=== PATIENT | male | born 1950 | race Caucasian/White ===

== ENCOUNTER → 2018-09-21 | Outpatient (CLI) | payer MEDICARE, BC ==
[2018-09-21 10:23] LABS: HCT 48.5 % (39.0-53.0); HGB 16.1 gm/dL (13.0-17.5); MCHC 33.3 g/dL (31.0-37.0); MCV 96.2 fL (80.0-100.0); Mean Platelet Volume 7.4; Platelet Count 151 k/uL (150-450); RBC 5.04 m/uL (4.30-5.90); RDW 13.5 % (11.5-15.5)
[2018-09-21 10:31] LABS: INR 1.9 (<1.2)
[2018-09-21 11:10] LABS: Appearance,Urine Clear (Clear); Bilirubin,Urine Negative (Negative); Blood,Urine Negative (Negative); Color,Urine Yellow; Glucose,Urine (UA) Negative (Negative); Ketones,Urine Negative (Negative); Leukocyte Esterase,Urine Negative (Negative); Mucus,Urine Few /hpf; Nitrite,Urine Negative (Negative); PH, Urine 5.5 (5.0-8.0); Protein,Urine 1+ (Negative); RBC,Urine 16 /hpf (0-5); Specific Gravity,Urine 1.028 (1.001-1.035); Sperm,Urine Many /hpf; Urobilinogen,Urine <2.0 mg/dL (<2.0); WBC,Urine 8 /hpf (0-5)
[2018-09-21 17:04] LABS: Insulin Level 15.6 mIU/mL (3.0-25.0); Vitamin D 25 Hydroxy 78.5 ng/mL (30.0-100.0)
[2018-09-21 17:05] LABS: Progesterone <0.2 ng/mL
[2018-09-21 17:22] LABS: Albumin 4.3 g/dL (3.80-4.90); Albumin/Globulin Ratio 2.39 (1.20-2.10); Anion Gap 8.9 mmol/L (4.00-12.00); C Reactive Protein 0.6 mg/dL (0.0-0.8); Calcium 9.5 mg/dL (8.7-10.3); Carbon Dioxide 29.1 mmol/L (21.6-31.8); Globulin 1.8 g/dL (2.1-3.7); Potassium 4.2 mmol/L (3.5-5.5); Total Bilirubin 0.9 mg/dL (0.3-1.2); Total Protein 6.1 g/dL (6.2-8.2)
[2018-09-21 17:30] LABS: T4, Free (Free Thyroxine) 1.2 ng/dL (0.80-1.80)
[2018-09-21 20:13] LABS: Hemoglobin A1C 5.5 % (4.0-6.0)
[2018-09-24 22:42] LABS: Testosterone, Free, LC/MS/MS 41.6 pg/mL (46.0-224.0)
== END | disposition home or self-care (01) ==
LOC: LABWHC1 09:18
PROVIDERS: ATTEND Family Medicine
DX: D68.59 Other primary thrombophilia (principal); E03.9 Hypothyroidism, unspecified; E78.5 Hyperlipidemia, unspecified; E55.9 Vitamin D deficiency, unspecified; E34.9 Endocrine disorder, unspecified
CPT/HCPCS: 36415; 80053; 81001; 82040; 82306; 82533; 82626; 82670; 83036; 83525; 83704; 84144; 84270; 84403; 84439; 84443; 84481; 85027; 85610; 86140

== ENCOUNTER 2018-10-08 15:11 | Emergency (ER) | payer MEDICARE, BC ==
[2018-10-08 15:27] VITALS: BP 141/72; PULSE 56; RESP 20; TEMP 97.8
--- NOTE | 2018-10-08 16:07 | XR ---
EXAMINATION TYPE: XR knee complete RT DATE OF EXAM: 10/08/2018 COMPARISON: NONE HISTORY: 68-year-old male pain after twisting injury today TECHNIQUE: 3 views FINDINGS: Bone fragments above the patella located anteriorly measuring 1.2 and 1.4 cm. Additional corrie ne fragment along the medial aspect of the joint line measures 1.3 cm. Suspect underlying small effus ion. Otherwise, no significant loosening or jatin periprosthetic fracture is identified. IMPRESSION: 1. Recommend comparison to patient's outside priors to ensure stability. There are 2 bone fragments a bria the patella measuring up to 1.4 cm and one fragment along the medial joint line measuring 1.3 cm . Chronic bone fragments are suspected. Confirmation is needed. 2. Suspect underlying small knee joint effusion.
--- NOTE | 2018-10-08 16:28 | ED ---
Lower Extremity Injury HPI - General Chief Complaint: Extremity Injury, Lower Stated Complaint: knee pain Time Seen by Provider: 10/08/18 15:42 Source: patient, RN notes reviewed Mode of arrival: wheelchair Limitations: no limitations - History of Present Illness Initial Comments: 68-year-old male presents emergency Department chief complaint right knee pain. Patient states that he twisted his knee and felt a pop on the lateral posterior aspect. Patient has had a prior knee replacement 10 years ago. Patient had no complications with this. Patient states that it hurts when he bends his knee. Patient denies any noted swelling or ecchymosis. Denies any other complaints. - Related Data Home Medications Medication Instructions Recorded Confirmed Furosemide [Lasix] 1 tab PO DAILY 10/01/14 10/02/14 Levothyroxine Sodium [Synthroid] 1 tab PO DAILY 10/01/14 10/02/14 Losartan Potassium [Cozaar] 1 tab PO DAILY 10/01/14 10/02/14 Metaxalone [Skelaxin] 1 tab PO TID PRN 10/01/14 10/01/14 Metoprolol Succinate [Toprol XL] 1 tab PO DAILY 10/01/14 10/02/14 Potassium Chloride ER [K-Dur 10] 20 meq PO DAILY 10/01/14 10/02/14 Warfarin [Coumadin] 1 tab PO HS 10/01/14 10/02/14 Warfarin [Coumadin] 1 tab PO DIRECTED 10/02/14 10/02/14 Allergies Allergy/AdvReac Type Severity Reaction Status Date / Time No Known Allergies Allergy Verified 10/08/18 15:27 Review of Systems ROS Statement: Those systems with pertinent positive or pertinent negative responses have been documented in the HPI. ROS Other: All systems not noted in ROS Statement are negative. Past Medical History Past Medical History: Coronary Artery Disease (CAD), Hypertension History of Any Multi-Drug Resistant Organisms: None Reported Past Surgical History: Back Surgery, Hernia Repair, Joint Replacement, Orthopedic Surgery Additional Past Surgical History / Comment(s): aortic valve replacement, nurys knee ,rt shoulder Smoking Status: Never smoker Past Alcohol Use History: None Reported Past Drug Use History: None Reported General Exam Limitations: no limitations General appearance: alert, in no apparent distress Neck exam: Present: normal inspection. Absent: tenderness, meningismus, lymphadenopathy Respiratory exam: Present: normal lung sounds bilaterally. Absent: respiratory distress, wheezes, rales, rhonchi, stridor Cardiovascular Exam: Present: regular rate, normal rhythm, normal heart sounds. Absent: systolic murmur, diastolic murmur, rubs, gallop, clicks Extremities exam: Present: other (Right knee pain with flexion of the knee no palpable tenderness patient reports pain in posterior lateral portion pain with varus, no pain with valgus negative anterior posterior drawer neurovascular intact joint above and below within normal limits.) Neurological exam: Present: alert, reflexes normal. Absent: motor sensory deficit Course Vital Signs 10/08/18 15:23 Temperature 97.8 F Pulse Rate 56 L Respiratory 20 Rate Blood Pressure 141/72 O2 Sat by Pulse 97 Oximetry Medical Decision Making - Medical Decision Making 68-year-old male presented for right knee pain. Patient is right knee sprain. X-rays were obtained showed possibility of bony fragment though this is felt to be chronic. Patient has no medial tenderness and mechanism is not consistent with fracture. Patient will follow-up with his orthopedic physician or local orthopedic doctor. Patient will be place in knee immbolizer. We discussed return parameters. Disposition Clinical Impression: Right knee sprain Disposition: HOME SELF-CARE Condition: Stable Instructions: Knee Sprain (ED) Additional Instructions: Please return to the Emergency Department if symptoms worsen or any other concerns. Is patient prescribed a controlled substance at d/c from ED?: No Referrals: Coni De La Garza MD [Primary Care Provider] - 1-2 days Fouzia Cast DO [Doctor of Osteopathic Medicine] - 1-2 days Time of Disposition: 16:28
== END 2018-10-08 16:44 | disposition home or self-care (01) ==
LOC: EC 15:11
DX: S83.91XA Sprain of unspecified site of right knee, initial encounter (principal); I25.10 Atherosclerotic heart disease of native coronary artery without angina pectoris; I10 Essential (primary) hypertension; Z95.2 Presence of prosthetic heart valve; Z96.653 Presence of artificial knee joint, bilateral; Z96.611 Presence of right artificial shoulder joint; Z79.01 Long term (current) use of anticoagulants; Z79.899 Other long term (current) drug therapy; X50.1XXA Overexertion from prolonged static or awkward postures, initial encounter; Y92.009 Unspecified place in unspecified non-institutional (private) residence as the place of occurrence of the external cause
CPT/HCPCS: 73562; 99283; L1830

== ENCOUNTER → 2019-04-22 | Day surgery (SDC) | payer MEDICARE, OTHER ==
[2019-04-12 14:44] VITALS: BMI 40.5
[~2019-04-22] MED LIST: BENZOCAINE SPRAY 1 CAN MUCOUS MEM ONE; MIDAZOLAM (PF) 2 MG/2 ML VIAL IV ONE; SODIUM CHLORIDE 0.9% 1,000 ML IV SCH; SODIUM CHLORIDE 0.9% 500 ML 500 ML IV ONE; fentaNYL (PF) 50 MCG/ML 2 ML AMP IV ONE; fentaNYL (PF) 50 MCG/ML 2 ML AMP ONE
[2019-04-22 08:51] VITALS: TEMP 98.2
[2019-04-22 09:05] LABS: INR 2.9 (<1.2); Prothrombin Time 27.6 sec (9.0-12.0)
--- NOTE | 2019-04-22 09:44 | ECHOT ---
TRANSESOPHAGEAL ECHOCARDIOGRAM INDICATION: To evaluate the aortic prosthetic valve for aortic regurgitation. PROCEDURE NOTE: After obtaining informed consent, transesophageal echocardiogram was performed in left lateral position using an Omni plane probe. Local and IV sedation were obtained using Xylocaine spray, 3 mg of intravenous Versed and fentanyl. The patient tolerated the procedure well without any obvious immediate complications. Patient received moderate conscious sedation and total sedation time was 10 minutes. FINDINGS: 1. Aortic valve: There is a prosthetic valve in aortic position with mildly dilated ascending aorta. Ascending aorta measures about 3.6 cm. The prosthetic valve seems to be moving normally. There is no restriction in leaflet mobility and there is no regurgitation inside the valve. However, there is a moderate amount of paravalvular regurgitation noted. 2. Mitral valve appears anatomically normal. There is moderate mitral regurgitation noted. There is mild tricuspid regurgitation noted. 3. Interatrial septum: There is no evidence of [id number]-rs-[id number] shunt by color-flow Doppler or [id number]-[id number] shunt by agitated saline contrast study. 4. Aorta: The visualized portion of the aorta including the ascending aorta and part of the arch are free of significant aneurysmal dilatation. There is mild atherosclerotic changes noted throughout. 5. Left ventricle has normal size and systolic function. CONCLUSION: 1. There is a bioprosthetic valve in aortic position that shows moderate perivalvular regurgitation. 2. There is moderate mitral regurgitation. 3. Normal left ventricular systolic function. 4. No significant aneurysm is noted within the ascending aorta. It appears mildly dilated. There are mild atherosclerotic changes noted throughout the aorta. MMODL / IJN: [id number] /
[2019-04-22 10:25] VITALS: RESP 16
[2019-04-22 11:55] VITALS: BP 152/80; PULSE 71
[2019-04-22 12:02] LABS: African American GFR (CKD) >90 (>60 ml/min/1.73 sqM); Anion Gap 5 mmol/L; Blood Urea Nitrogen 18 mg/dL (9-20); Calcium 9.5 mg/dL (8.4-10.2); Carbon Dioxide 34 mmol/L (22-30); Chloride 102 mmol/L (98-107); Glucose 153 mg/dL (74-99); Potassium 4.6 mmol/L (3.5-5.1); Sodium 141 mmol/L (137-145)
--- NOTE | 2019-04-22 13:00 | CT ---
CT CHEST FOR PULMONARY EMBOLISM. EXAMINATION TYPE: CT angio chest DATE OF EXAM: 04/22/2019 INDICATION: Follow up from [facility]. Valve abnormality. CT DLP: 1657.1 mGycm, Automated exposure control for dose reduction was used. CONTRAST: Patient injected with 100 mL of Isovue 370. COMPARISON: 04/09/2012 TECHNIQUE: CT of the chest is performed on a spiral scan at 2 mm thick sections. Study is performed with intravenous contrast timed for evaluation for pulmonary embolism. This will limit additional po rtions of the evaluation. 3-D MIP images reconstructed by the technologist are reviewed on the compu ter in the coronal and sagittal planes. FINDINGS: No persistent filling defects are evident to suggest an acute pulmonary embolism. No mediastinal or hilar adenopathy enlarged by CT criteria is evident. The ascending aorta diameter at the level of the main pulmonary artery is 2.8 cm. The main pulmonary artery diameter at the bifur cation is 2.1 cm. Some mild stranding may be in the posterior right lung base. This is most likely on the basis of atel ectasis. Limited CT section through the upper abdomen are unremarkable. IMPRESSIONS: 1. No acute pulmonary embolism
== END | disposition home or self-care (01) ==
LOC: CATHCVL 08:00
PROVIDERS: ATTEND Internal Medicine Cardiovascular Disease
DX: I08.3 Combined rheumatic disorders of mitral, aortic and tricuspid valves (principal); I71.2 Thoracic aortic aneurysm, without rupture; I10 Essential (primary) hypertension; Z79.890 Hormone replacement therapy; Z86.711 Personal history of pulmonary embolism
CPT/HCPCS: 93312; 93320; 93325; 80048; 85610; 71275; J3010; Q9967; J2250

== ENCOUNTER → 2019-04-29 | Outpatient (CLI) | payer MEDICARE, OTHER ==
[2019-04-29 08:24] LABS: HCT 48.6 % (39.0-53.0); HGB 16.1 gm/dL (13.0-17.5); MCH 31.8 pg (25.0-35.0); MCHC 33.1 g/dL (31.0-37.0); Mean Platelet Volume 7.4; Platelet Count 188 k/uL (150-450); RBC 5.06 m/uL (4.30-5.90); RDW 13.6 % (11.5-15.5); WBC 7.3 k/uL (3.8-10.6)
== END | disposition home or self-care (01) ==
LOC: LABPAT 07:50
PROVIDERS: ATTEND Internal Medicine Cardiovascular Disease
DX: Z01.812 Encounter for preprocedural laboratory examination (principal); I35.1 Nonrheumatic aortic (valve) insufficiency
CPT/HCPCS: 36415; 85027

== ENCOUNTER 2019-04-30 06:32 | Day surgery (SDC) | payer MEDICARE, OTHER ==
[~2019-04-30 06:32] MED LIST changes: +ALPRAZolam 0.25 MG TAB PO PRN; +ALPRAZolam 0.5 MG TAB PO PRN; +ASPIRIN 325 MG TAB PO PRN; +ATORVASTATIN 80 MG TAB PO PRN; -BENZOCAINE SPRAY 1 CAN MUCOUS MEM ONE; -MIDAZOLAM (PF) 2 MG/2 ML VIAL IV ONE; +NITROGLYCERIN SL TABS 0.4 MG TAB SUBLINGUAL PRN; -SODIUM CHLORIDE 0.9% 1,000 ML IV SCH; +SODIUM CHLORIDE 0.9% 1,000 ML in EMPTY BAG 1 BAG IV ONE; -SODIUM CHLORIDE 0.9% 500 ML 500 ML IV ONE; -fentaNYL (PF) 50 MCG/ML 2 ML AMP IV ONE; -fentaNYL (PF) 50 MCG/ML 2 ML AMP ONE
[2019-04-30 07:35] LABS: INR 1.2 (<1.2); Prothrombin Time 12.8 sec (9.0-12.0)
[2019-04-30] MEDS ORDERED: fentaNYL (PF) 50 MCG/ML 2 ML AMP ONE (07:42)
[2019-04-30] MEDS ORDERED: LIDOCAINE 1% INJ 10MG/ML (20 ML MDV) ONE (07:42)
[2019-04-30] MEDS ORDERED: MIDAZOLAM (PF) 2 MG/2 ML VIAL IV ONE ×3 (07:47→07:56)
[2019-04-30] MEDS ORDERED: LIDOCAINE 1% INJ 10MG/ML (20 ML MDV) SQ ONE (07:48)
[2019-04-30] MEDS ORDERED: fentaNYL (PF) 50 MCG/ML 2 ML AMP IV ONE (07:53)
[2019-04-30] MEDS ORDERED: IOPAMIDOL-370 125ML BTL INJ ONE (08:07)
[2019-04-30] MEDS ORDERED: IOPAMIDOL-370 100ML BTL INJ ONE (08:07)
[2019-04-30] MEDS ORDERED: RX INFO: IV CONTRAST WAS GIVEN 1 EACH MISC MISCELLANE PRN (08:10)
--- NOTE | 2019-04-30 10:33 | CC ---
CARDIAC CATHETERIZATION REPORT INDICATION: Prosthetic valve regurgitation. PROCEDURE NOTE: After obtaining informed consent, left heart catheterization, coronary angiogram and aortogram were performed via the right femoral artery using standard Shari catheters. The patient tolerated the procedure well. He developed a small hematoma at the end of the procedure. So decision was made for manual hemostasis. The patient was on Coumadin and had been on Lovenox. His INR this morning was 1.2. FINDINGS: 1. HEMODYNAMICS: Central aortic pressure 160/86. 2. ANGIOGRAPHIC DATA: Left Main Coronary Artery: Left main coronary artery is a normal-sized vessel and is free of stenosis. Divides into left anterior descending coronary artery and circumflex coronary artery. LAD and its branches, circumflex coronary artery and its branches are free of significant stenosis. Right coronary artery is a large dominant vessel and is free of significant disease. AORTOGRAM: Aortogram was performed to evaluate the prosthetic valve. There is severe aortic regurgitation noted. CONCLUSION: 1. Severe prosthetic valve regurgitation. 2. Normal coronary arteries. PLAN: The patient will be referred to a cardiothoracic surgeon for aortic valve replacement. MMODL / IJN: [id number] /
[2019-04-30] MEDS ORDERED: WARFARIN 5 MG TAB PO ONE (12:00)
[2019-04-30 13:23] VITALS: BMI 41.0
[2019-04-30] MEDS ORDERED: ZOLPIDEM 10 MG TAB PO PRN (20:13)
[2019-05-01] MEDS ORDERED: LEVOTHYROXINE 88 MCG TAB PO SCH (06:30)
[2019-05-01 08:02] LABS: INR 1.2 (<1.2); Prothrombin Time 12.1 sec (9.0-12.0)
[2019-05-01] MEDS ORDERED: SPIRONOLACTONE 25 MG TAB PO SCH (09:00)
[2019-05-01] MEDS ORDERED: FUROSEMIDE 40 MG TAB PO SCH (09:00)
[2019-05-01] MEDS ORDERED: LOSARTAN 50 MG TAB PO SCH (09:00)
[2019-05-01 12:10] VITALS: BP 117/67; PULSE 62; RESP 16; TEMP 97.6
[2019-05-01] MEDS ORDERED: WARFARIN 2.5 MG TAB PO SCH (18:00)
[2019-05-02] MEDS ORDERED: WARFARIN 5 MG TAB PO SCH (18:00)
== END 2019-05-01 12:53 ==
LOC: CATHCVL 06:32 → 1SOBS 08:05 → CATHCVL 05-01 12:53
PROVIDERS: ATTEND Internal Medicine Cardiovascular Disease
DX: T82.897A Other specified complication of cardiac prosthetic devices, implants and grafts, initial encounter (principal); I35.1 Nonrheumatic aortic (valve) insufficiency; I97.630 Postprocedural hematoma of a circulatory system organ or structure following a cardiac catheterization; I71.2 Thoracic aortic aneurysm, without rupture; I49.5 Sick sinus syndrome; I42.9 Cardiomyopathy, unspecified; I11.0 Hypertensive heart disease with heart failure; I50.30 Unspecified diastolic (congestive) heart failure; Z79.01 Long term (current) use of anticoagulants; Z79.890 Hormone replacement therapy; Z79.899 Other long term (current) drug therapy; Z86.79 Personal history of other diseases of the circulatory system; Z86.711 Personal history of pulmonary embolism; Z98.890 Other specified postprocedural states
CPT/HCPCS: 93458; 93567; 85610 ×2; C1894; C1769; J2001; J3010; Q9967 ×2; J2250; 93454

== ENCOUNTER → 2019-05-24 | Outpatient (CLI) | payer MEDICARE, OTHER | END | disposition home or self-care (01) | LOC: CPPFTMAIN 12:49 | PROVIDERS: ATTEND Thoracic Surgery (Cardiothoracic Vascular Surgery) | DX: Z01.818 Encounter for other preprocedural examination (principal); I35.2 Nonrheumatic aortic (valve) stenosis with insufficiency | CPT/HCPCS: 36415; 80053; 85027; 85610; 94060; 94726; 94729 ==

== ENCOUNTER → 2019-05-24 | Outpatient (CLI) | payer MEDICARE, OTHER ==
[2019-05-24 13:44] LABS: HCT 51.4 % (39.0-53.0); HGB 17.7 gm/dL (13.0-17.5); MCH 33.4 pg (25.0-35.0); MCHC 34.3 g/dL (31.0-37.0); MCV 97.4 fL (80.0-100.0); Mean Platelet Volume 7.3; Platelet Count 181 k/uL (150-450); RBC 5.28 m/uL (4.30-5.90); RDW 13.6 % (11.5-15.5); WBC 7.4 k/uL (3.8-10.6)
[2019-05-24 14:02] LABS: INR 2.6 (<1.2); Prothrombin Time 25.2 sec (9.0-12.0)
[2019-05-24 18:53] LABS: Albumin 4.4 g/dL (3.80-4.90); BUN/Creat Ratio 19.09 Ratio (12.00-20.00); Calcium 9.8 mg/dL (8.7-10.3); Globulin 2.2 g/dL (1.6-3.3); Potassium 4.7 mmol/L (3.5-5.5); Total Protein 6.6 g/dL (6.2-8.2)
== END ==
LOC: LABWHC1 13:05
PROVIDERS: ATTEND Thoracic Surgery (Cardiothoracic Vascular Surgery)
DX: Z01.812 Encounter for preprocedural laboratory examination (principal); I35.2 Nonrheumatic aortic (valve) stenosis with insufficiency; I10 Essential (primary) hypertension
CPT/HCPCS: 36415; 80053; 85027; 85610

== ENCOUNTER 2019-08-30 20:46 | Emergency (ER) | payer MEDICARE, OTHER ==
[2019-08-30 21:17] VITALS: RESP 18; TEMP 97.5
[2019-08-30] MEDS ORDERED: LIDOCAINE/EPINEPHR/TETRACAINE 5 ML BOTTLE TOPICAL ONE (21:42)
[2019-08-30] MEDS ORDERED: OXYMETAZOLINE 0.05% NASL SPRAY 1 SPRAY BOTTLE NASAL STA (21:42)
--- NOTE | 2019-08-30 23:26 | ED ---
General Adult HPI - General Chief complaint: ENT Stated complaint: Nose Bleed Time Seen by Provider: 08/30/19 21:36 Source: patient, RN notes reviewed Mode of arrival: ambulatory Limitations: no limitations - History of Present Illness Initial comments: 69-year-old male with a past mental history of CAD, hypertension, pulmonary bolus and presents to the emergency department for nosebleed. Patient states this started about an hour ago and is bleeding out of the rightor he does admit to a small amount of blood going down the back of his throat. Patient is currently on Coumadin. Patient had his INR checked 2 days ago and it was 2.2 according to the patient and his . Patient states he is on Coumadin due to an aortic valve replacement as well as history of PE.Patient has no other complaints at this time including shortness of breath, chest pain, abdominal pain, nausea or vomiting, headache, or visual changes. - Related Data Home Medications Medication Instructions Recorded Confirmed Furosemide [Lasix] 40 mg PO DAILY 10/01/14 04/30/19 Levothyroxine Sodium [Synthroid] 88 mcg PO DAILY 10/01/14 04/30/19 Losartan Potassium [Cozaar] 100 mg PO DAILY 10/01/14 04/30/19 Metaxalone [Skelaxin] 800 mg PO TID PRN 10/01/14 04/30/19 Warfarin [Coumadin] 5 mg PO SUMOTUTHFRSA 10/01/14 04/26/19 Warfarin [Coumadin] 2.5 mg PO WE 10/02/14 04/26/19 Spironolactone [Aldactone] 12.5 mg PO DAILY 04/12/19 04/30/19 Allergies Allergy/AdvReac Type Severity Reaction Status Date / Time No Known Allergies Allergy Verified 04/26/19 10:45 Review of Systems ROS Statement: Those systems with pertinent positive or pertinent negative responses have been documented in the HPI. ROS Other: All systems not noted in ROS Statement are negative. Past Medical History Past Medical History: Coronary Artery Disease (CAD), GERD/Reflux, Hypertension, Pulmonary Embolus (PE), Thyroid Disorder Additional Past Medical History / Comment(s): shortness of breath with exertion History of Any Multi-Drug Resistant Organisms: None Reported Past Surgical History: Back Surgery, Cholecystectomy, Hernia Repair, Joint Replacement, Orthopedic Surgery Additional Past Surgical History / Comment(s): aortic valve replacement, aortic root repair, nurys knee replacement,rt shoulder rotator cuff , [facility]-04/15/19, replacement of the replaced aortic valve Past Anesthesia/Blood Transfusion Reactions: No Reported Reaction Additional Past Anesthesia/Blood Transfusion Reaction / Comment(s): headache after having orthopedic surgery Past Psychological History: No Psychological Hx Reported Smoking Status: Never smoker Past Alcohol Use History: None Reported Past Drug Use History: None Reported - Past Family History Mother Family Medical History: No Reported History Father Family Medical History: Cancer Additional Family Medical History / Comment(s): prostate cancer General Exam Limitations: no limitations General appearance: alert, in no apparent distress Head exam: Present: atraumatic, normocephalic, normal inspection Eye exam: Present: normal appearance, PERRL, EOMI. Absent: scleral icterus, conjunctival injection, periorbital swelling ENT exam: Present: normal oropharynx, mucous membranes moist, TM's normal bilaterally, normal external ear exam, other (Minimal bleeding from the right naris, and all blood in the oropharynx, bleeding is mostly controlled upon arrival to the emergency department.) Neck exam: Present: normal inspection, full ROM. Absent: tenderness, meningismus, lymphadenopathy Respiratory exam: Present: normal lung sounds bilaterally. Absent: respiratory distress, wheezes, rales, rhonchi, stridor Cardiovascular Exam: Present: regular rate, normal rhythm, normal heart sounds. Absent: systolic murmur, diastolic murmur, rubs, gallop, clicks Neurological exam: Present: alert Psychiatric exam: Present: normal affect, normal mood Course Vital Signs 08/30/19 21:11 Temperature 97.5 F L Pulse Rate 86 Respiratory 18 Rate Blood Pressure 149/85 O2 Sat by Pulse 95 Oximetry Medical Decision Making - Medical Decision Making 69-year-old male presents for epistaxis out of the right naris with minimal bleeding down the oropharynx. Patient is on Coumadin. Patient had his INR checked 2 days ago and it was 2.2. Leading mostly controlled upon arrival to the emergency department. Patient was immediately given a nose clamp. I did remove this and let solution as well as the Afrin spray was applied. Nasal clamp was applied for another 20 minutes. Recurrence of bleeding. Patient was walked around the department and again had no recurrence of bleeding. At this time nasal packing is not warranted as bleeding has ceased. Recommended he follow up with ENT. Recommended he return if he has any worsening symptoms. Disposition Clinical Impression: Epistaxis Disposition: HOME SELF-CARE Condition: Good Instructions (If sedation given, give patient instructions): Nosebleed (ED) Additional Instructions: If bleeding occurs spray 2 sprays of Afrin into each nostril and clamp for 20 minutes. If bleeding does not stop with a prescription for another 20 minutes. If bleeding still does not resolve return immediately to the emergency department. Otherwise follow-up with primary care in ENT in 1-2 days. Is patient prescribed a controlled substance at d/c from ED?: No Referrals: Coni De La Garza MD [Primary Care Provider] - 1-2 days Neftali Goodwin MD [STAFF PHYSICIAN] - 1-2 days Time of Disposition: 23:25
[2019-08-30 23:42] VITALS: BP 143/78; PULSE 72
== END 2019-08-30 23:43 | disposition home or self-care (01) ==
LOC: EC 20:46
DX: R04.0 Epistaxis (principal); I25.10 Atherosclerotic heart disease of native coronary artery without angina pectoris; I10 Essential (primary) hypertension; E07.9 Disorder of thyroid, unspecified; Z79.01 Long term (current) use of anticoagulants; Z79.899 Other long term (current) drug therapy; Z86.711 Personal history of pulmonary embolism; Z95.2 Presence of prosthetic heart valve
CPT/HCPCS: 30901; 99283

== ENCOUNTER → 2019-10-01 | Outpatient (CLI) | payer MEDICARE, OTHER ==
[2019-10-01 09:46] LABS: HCT 47.4 % (39.0-53.0); HGB 15.7 gm/dL (13.0-17.5); MCH 31.8 pg (25.0-35.0); MCHC 33.2 g/dL (31.0-37.0); MCV 95.8 fL (80.0-100.0); Mean Platelet Volume 7.5; Platelet Count 172 k/uL (150-450); RBC 4.95 m/uL (4.30-5.90); RDW 13.1 % (11.5-15.5); WBC 5.3 k/uL (3.8-10.6)
[2019-10-01 17:12] LABS: African American GFR (CKD) 78.4 (60.0-200.0); Albumin 4.2 g/dL (3.80-4.90); Albumin/Globulin Ratio 2.33 (1.60-3.17); Anion Gap 9.5 mmol/L (4.00-12.00); BUN/Creat Ratio 16.36 Ratio (12.00-20.00); C Reactive Protein 0.6 mg/dL (0.0-0.8); Calcium 9.2 mg/dL (8.7-10.3); Carbon Dioxide 29.5 mmol/L (21.6-31.8); Globulin 1.8 g/dL (1.6-3.3); Non-African American GFR(CKD) 67.7 (60.0-200.0); Total Bilirubin 0.8 mg/dL (0.3-1.2)
[2019-10-01 17:22] LABS: Estradiol 27.5 pg/mL; T4, Free (Free Thyroxine) 1.1 ng/dL (0.80-1.80)
[2019-10-01 17:41] LABS: Insulin Level 23.5 mIU/mL (3.0-25.0)
[2019-10-01 17:43] LABS: Progesterone <0.2 ng/mL
[2019-10-01 19:37] LABS: Hemoglobin A1C 5.7 % (4.0-6.0)
[2019-10-04 15:01] LABS: Large VLDL Particle Number,NMR 9.8 nmol/L (<=2.7)
== END | disposition home or self-care (01) ==
LOC: LABWHC1 08:33
PROVIDERS: ATTEND Family Medicine
DX: E03.9 Hypothyroidism, unspecified (principal); E34.9 Endocrine disorder, unspecified; E78.49 Other hyperlipidemia; E55.9 Vitamin D deficiency, unspecified; R73.9 Hyperglycemia, unspecified
CPT/HCPCS: 36415; 80053; 82306; 82533; 82626; 82670; 83036; 83525; 83704; 84144; 84402; 84403; 84439; 84443; 84481; 85027; 86140

== ENCOUNTER → 2022-05-12 | Outpatient (CLI) | payer MEDICARE, OTHER ==
[2022-05-12 10:40] LABS: Basophils # (A) 0.05 X 10*3/uL (0.00-0.10); Basophils % (A) 0.7 %; Eosinophils # (A) 0.31 X 10*3/uL (0.04-0.35); Eosinophils % (A) 4.6 %; HCT 49.2 % (39.6-50.0); HGB 15.9 g/dL (13.0-17.0); Immature Grans, Automated 0.4 %; Lymphocytes # (A) 2.02 X 10*3/uL (0.90-5.00); Lymphocytes % (A) 30.1 %; MCH 30.5 pg (27.0-32.0); MCHC 32.3 g/dL (32.0-37.0); MCV 94.3 fL (80.0-97.0); Mean Platelet Volume 10.4 fL (9.5-12.2); Monocytes # (A) 0.69 X 10*3/uL (0.20-1.00); Monocytes % (A) 10.3 %; NRBC Per 100 WBC 0 /100 WBCS (0.0-0.0); Neutrophils # (A) 3.62 X 10*3/uL (1.80-7.70); Neutrophils % (A) 53.9 %; Platelet Count 196 X 10*3/uL (140-440); RBC 5.22 X 10*6/uL (4.40-5.60); RDW 12.9 % (11.5-14.5); WBC 6.72 X 10*3/uL (4.50-10.00)
[2022-05-12 11:01] LABS: ALT 40 U/L (10-49); AST 36 U/L (14-35); African American GFR (CKD) 77.3 (60.0-200.0); Albumin 4.4 g/dL (3.8-4.9); Albumin/Globulin Ratio 1.89 (1.60-3.17); Alkaline Phosphatase 87 U/L (41-126); BUN/Creat Ratio 15.09 Ratio (12.00-20.00); Blood Urea Nitrogen 16.6 mg/dL (9.0-27.0); Calcium 9.3 mg/dL (8.7-10.3); Carbon Dioxide 26.3 mmol/L (20.0-27.5); Chloride 101 mmol/L (96-109); Chol/HDL Ratio 4.74 Ratio; Globulin 2.3 g/dL (1.6-3.3); Glucose 112 mg/dL (70-110); LDL Cholesterol,Calculated 121.7 mg/dL (0.0-131.0); Magnesium 2.1 mg/dL (1.5-2.4); Non-African American GFR(CKD) 66.7 (60.0-200.0); Potassium 4.2 mmol/L (3.5-5.5); Sodium 141 mmol/L (135-145); Total Protein 6.7 g/dL (6.2-8.2)
== END | disposition home or self-care (01) ==
LOC: LABWHC1 08:05
PROVIDERS: ATTEND Internal Medicine Interventional Cardiology
DX: I11.0 Hypertensive heart disease with heart failure (principal); E78.5 Hyperlipidemia, unspecified; Z95.2 Presence of prosthetic heart valve; I50.22 Chronic systolic (congestive) heart failure; I49.5 Sick sinus syndrome
CPT/HCPCS: 36415; 80053; 80061; 83735; 84443; 85025

== ENCOUNTER → 2025-04-14 | Outpatient (CLI) | payer MEDICARE, OTHER ==
--- NOTE | 2025-04-14 12:14 | XR ---
EXAMINATION TYPE: XR knee complete LT DATE OF EXAM: 04/14/2025 9:36 AM INDICATION: Patient age:Male; 74 years old; Reason for study: T84.093A S82.002A; [facility]. pain COMPARISON: None. TECHNIQUE: The Left knee(s) was examined in Frontal, lateral, and sunrise projections. FINDINGS: Postsurgical changes from left knee arthroplasty with distal femoral and proximal tibial components. Hardware appears intact with appropriate alignment. No periprosthetic lucency to suggest loosening. There is a 2.3 cm osseous fragment along the superior aspect of the patella likely represe nting reported prior left patellar fracture. Arthroplasty changes identified of the right knee and roldan nrise projection. Small left knee suprapatellar joint effusion. No dislocation. Mild anterior knee so ft tissue swelling. IMPRESSION: 1. Osseous fragment along the superior aspect of the patella likely representing reported prior left patellar fracture. No prior imaging available for comparison. 2. Postsurgical changes from left hip arthroplasty. Hardware appears intact with appropriate alignmen t. No radiographic evidence for loosening. 3. Small suprapatellar joint effusion. 4. Mild anterior knee soft tissue swelling. [facility], , 04/14/2025 12:11 PM
== END | disposition home or self-care (01) ==
LOC: RADXRMAIN 09:10
PROVIDERS: ATTEND Orthopaedic Surgery
DX: S82.002A Unspecified fracture of left patella, initial encounter for closed fracture (principal); T84.093A Other mechanical complication of internal left knee prosthesis, initial encounter; M25.462 Effusion, left knee; Z96.642 Presence of left artificial hip joint; X58.XXXA Exposure to other specified factors, initial encounter

== ENCOUNTER 2025-05-07 18:04 | Inpatient (IN) | payer MEDICARE, OTHER ==
[2025-05-07] MEDS: ACETAMINOPHEN TAB 500 MG TAB PO STA (19:02)
[2025-05-07] MEDS: IBUPROFEN 600 MG TAB PO STA (19:02)
[2025-05-07 19:08] LABS: Basophils # (A) 0.05 10*3/uL (0.00-0.10); Basophils % (A) 0.5 %; Eosinophils # (A) 0.02 10*3/uL (0.04-0.35); Eosinophils % (A) 0.2 %; HCT 41.3 % (39.6-50.0); HGB 13.8 g/dL (13.0-17.0); Lymphocytes # (A) 1.29 10*3/uL (0.90-5.00); Lymphocytes % (A) 11.7 %; MCH 30.3 pg (27.0-32.0); MCHC 33.4 g/dL (32.0-37.0); MCV 90.6 fL (80.0-97.0); Monocytes # (A) 1.57 10*3/uL (0.20-1.00); Monocytes % (A) 14.2 %; Neutrophils # (A) 8.06 10*3/uL (1.80-7.70); Neutrophils % (A) 73.1 %; Platelet Count 272 10*3/uL (140-440); RBC 4.56 10*6/uL (4.40-5.60); RDW 13.7 % (11.5-14.5); WBC 11.02 10*3/uL (4.50-10.00)
[2025-05-07 19:21] LABS: INR 1.3 (<1.2); Partial Thromboplastin Time 28.7 sec (22.0-30.0); Prothrombin Time 13.6 sec (10.0-12.5)
--- NOTE | 2025-05-07 19:33 | XR ---
EXAMINATION TYPE: XR chest 2V DATE OF EXAM: 05/07/2025 7:18 PM COMPARISON: Chest radiographs from 05/11/2012, CTA chest 04/22/2019 TECHNIQUE: XR chest 2V Frontal and lateral views of the chest. CLINICAL INDICATION:Male, 74 years old with history of Fever; FINDINGS: Lungs/Pleura: There is no evidence of pleural effusion, focal consolidation, or pneumothorax. Pulmonary vascularity: Unremarkable. Heart/mediastinum: Cardiomediastinal silhouette is stable. Musculoskeletal: No acute osseous pathology. Midline sternotomy wires are noted. There is a fracture of the most superior sternotomy wire with a portion of the wire extending right laterally. IMPRESSION: No acute cardiopulmonary disease/process. [facility], , 05/07/2025 7:31 PM
[2025-05-07 19:35] LABS: ALT 32 U/L (4-49); AST 37 U/L (17-59); African American GFR (CKD) >90 (>60 ml/min/1.73 sqM); Albumin 3.9 g/dL (3.5-5.0); Alkaline Phosphatase 61 U/L (38-126); Anion Gap 10 mmol/L; Blood Urea Nitrogen 13 mg/dL (9-20); Calcium 8.3 mg/dL (8.4-10.2); Carbon Dioxide 27 mmol/L (22-30); Chloride 95 mmol/L (98-107); Glucose 120 mg/dL (74-99); Non-African American GFR(CKD) 80 (>60 ml/min/1.73 sqM); Potassium 4.2 mmol/L (3.5-5.1); Sodium 132 mmol/L (137-145); Total Protein 6.8 g/dL (6.3-8.2)
--- NOTE | 2025-05-07 19:50 | ED ---
General Adult HPI - General Chief complaint: Altered Mental Status Stated complaint: AMS Time Seen by Provider: 05/07/25 18:10 Source: patient, EMS, RN notes reviewed, old records reviewed Mode of arrival: EMS Limitations: altered mental status - History of Present Illness Initial comments: This is a 74-year-old male who was having some pain in his left leg last night so he took one of his 's Percocet and Benadryl and he did not wake up at his normal time this morning. Patient did not wake up till 10:00 and he was still slow to respond and extremely tired. Patient had no complaints however the patient remained extremely tired and very difficult to arouse and so the finally brought the patient into the emergency department. Patient had a fever. states he has no signs of any infection that she knows he is not complaining of any difficulty breathing shortness of breath or cough patient not complain of any abdominal pain patient not complaining of any neck pain. Patient did complain of a headache. Patient marlene any urinary symptoms. Patient denies any nausea vomiting diarrhea - Related Data Home Medications Medication Instructions Recorded Confirmed Furosemide [Lasix] 40 mg PO DAILY 10/01/14 04/30/19 Levothyroxine Sodium [Synthroid] 88 mcg PO DAILY 10/01/14 04/30/19 Losartan Potassium [Cozaar] 100 mg PO DAILY 10/01/14 04/30/19 Metaxalone [Skelaxin] 800 mg PO TID PRN 10/01/14 04/30/19 Warfarin [Coumadin] 5 mg PO SUMOTUTHFRSA 10/01/14 04/26/19 Warfarin [Coumadin] 2.5 mg PO WE 10/02/14 04/26/19 Spironolactone [Aldactone] 12.5 mg PO DAILY 04/12/19 04/30/19 Allergies Allergy/AdvReac Type Severity Reaction Status Date / Time No Known Allergies Allergy Verified 05/07/25 18:16 Review of Systems ROS Statement: Those systems with pertinent positive or pertinent negative responses have been documented in the HPI. ROS Other: All systems not noted in ROS Statement are negative. Past Medical History Past Medical History: Coronary Artery Disease (CAD), GERD/Reflux, Hypertension, Pulmonary Embolus (PE), Thyroid Disorder Additional Past Medical History / Comment(s): shortness of breath with exertion History of Any Multi-Drug Resistant Organisms: None Reported Past Surgical History: Back Surgery, Cholecystectomy, Hernia Repair, Joint Replacement, Orthopedic Surgery Additional Past Surgical History / Comment(s): aortic valve replacement, aortic root repair, nurys knee replacement,rt shoulder rotator cuff , RAMANA-04/15/19, rep lacement of the replaced aortic valve Past Anesthesia/Blood Transfusion Reactions: No Reported Reaction Additional Past Anesthesia/Blood Transfusion Reaction / Comment(s): headache after having orthopedic surgery Past Psychological History: No Psychological Hx Reported Smoking Status: Never smoker Past Alcohol Use History: None Reported Past Drug Use History: None Reported - Past Family History Mother Family Medical History: No Reported History Father Family Medical History: Cancer Additional Family Medical History / Comment(s): prostate cancer General Exam - General Exam Comments Initial Comments: GENERAL: Patient is well-developed and well-nourished. Patient is nontoxic and well- hydrated and is in no acute distress. Patient is very tired and keeps falling asleep mid conversation ENT: Neck is soft and supple. No significant lymphadenopathy is noted. Oropharynx is clear. Moist mucous membranes. Neck has full range of motion without eliciting any pain. EYES: The sclera were anicteric and conjunctiva were pink and moist. Extraocular movements were intact and pupils were equal round and reactive to light. Eyelids were unremarkable. PULMONARY: Unlabored respirations. Good breath sounds bilaterally. No audible rales rhonchi or wheezing was noted. CARDIOVASCULAR: There is a regular rate and rhythm without any murmurs gallops or rubs. ABDOMEN: Soft and nontender with normal bowel sounds. SKIN: Skin is clear with no lesions or rashes and otherwise unremarkable. NEUROLOGIC: Patient is alert and oriented x3. Cranial nerves II through XII are grossly intact. Motor and sensory are also intact. Normal speech, volume and content. Symmetrical smile. MUSCULOSKELETAL: Normal extremities with adequate strength and full range of motion. LYMPHATICS: No significant lymphadenopathy is noted PSYCHIATRIC: Normal psychiatric evaluation. Limitations: altered mental status Course Vital Signs 05/07/25 18:10 Temperature 102.5 F H Pulse Rate 66 Respiratory 20 Rate Blood Pressure 95/67 O2 Sat by Pulse 95 Oximetry Medical Decision Making - Medical Decision Making EKG is interpreted by myself and EKG shows sinus rhythm at 69 bpm SC interval is 116 QRS 105 QT interval 418 QTc is 436 per patient's EKG shows no ST segment elevation or depression. Was pt. sent in by a medical professional or institution (, [facility], [facility], urgent care, hospital, or assisted...) When possible be specific @ -No Did you speak to anyone other than the patient for history (EMS, parent, family, police, friend...)? What history was obtained from this source @ -No Did you review nursing and triage notes (agree or disagree)? Why? @ -I reviewed and agree with nursing and triage notes Were old charts reviewed (outside hosp., previous admission, EMS record, old EKG, old radiological studies, urgent care reports/EKG's, assisted records)? Report findings @ -No old charts were reviewed Differential Diagnosis? @ -Differential Chest Pain: Stable Angina, Unstable Angina, STEMI, NSTEMI Aortic Dissection, Pneumothorax, Musculoskeletal, Esophageal Spasm GERD, Cholecystitis, Pancreatitis, Zoster, this is not meant to be an all-inclusive list. EKG interpreted by me (3pts min.). @ -As above X-rays interpreted by me (1pt min.). @ -Left lower lobe pneumonia CT interpreted by me (1pt min.). @ -CAT scan of the brain shows increased size and Garza could either be due to atrophy or normal pressure hydrocephalus U/S interpreted by me (1pt. min.). @ -None done What testing was considered but not performed or refused? (CT, X-rays, U/S, labs)? Why? @ -None What meds were considered but not given or refused? Why? @ -None Did you discuss the management of the patient with other professionals (amanda manjarrez i.e. [facility] Narvaez, [facility], lab, RT, psych nurse, social insurance adviser, skin installer, teacher, navigating officer, telephonic case manager)? Give summary @ -Dr. Ritter will admit the patient and patient will be admitted admitted for pneumonia. Was smoking cessation discussed for >3mins.? @ -No Was critical care preformed (if so, how long)? @ -No Were there social determinants of health that impacted care today? How? (Homelessness, low income, unemployed, alcoholism, drug addiction, transportation, low edu. Level, literacy, decrease access to med. care, nursing home, rehab)? @ -No Was there de-escalation of care discussed even if they declined (Discuss DNR or withdrawal of care, Hospice)? DNR status @ -No What co-morbidities impacted this encounter? (DM, HTN, Smoking, COPD, CAD, Cancer, CVA, ARF, Chemo, Hep., AIDS, mental health diagnosis, sleep apnea, morbid obesity)? @ -None Was patient admitted / discharged? Hospital course, mention meds given and route, prescriptions, significant lab abnormalities, going to OR and other pe rtinent info. @ -Patient was given 2 g of Rocephin. Patient will be admitted to [facility]. Patient was much more alert upon admission than he was when he arrived. Undiagnosed new problem with uncertain prognosis? @ -No Drug Therapy requiring intensive monitoring for toxicity (Heparin, Nitro, Insulin, Cardizem)? @ -No Were any procedures done? @ -No Diagnosis/symptom? @ -Pneumonia Acute, or Chronic, or Acute on Chronic? @ -Acute Uncomplicated (without systemic symptoms) or Complicated (systemic symptoms)? @ -Complicated Side effects of treatment? @ -No Exacerbation, Progression, or Severe Exacerbation? @ -No Poses a threat to life or bodily function? How? (Chest pain, USA, VT, pneumonia, PE, COPD, DKA, ARF, appy, cholecystitis, CVA, Diverticulitis, Homicidal, Suicidal, threat to staff... and all critical care pts) @ -Yes this could lead to sepsis and endorgan dysfunction Diagnosis/symptom? @ -Altered mental status Acute, or Chronic, or Acute on Chronic? @ -Acute Uncomplicated (without systemic symptoms) or Complicated (systemic symptoms)? @ -Complicated Side effects of treatment? @ -None Exacerbation, Progression, or Severe Exacerbation] @ -No Poses a threat to life or bodily function? @ -No - Lab Data Result diagrams: 05/07/25 19:01 05/07/25 19:01 Lab Results 05/07/25 05/07/25 05/07/25 Range/Units 19: 19: 19: WBC 11.02 H (4.50-10.00) 10*3/uL RBC 4.56 (4.40-5.60) 10*6/uL Hgb 13.8 (13.0-17.0) g/dL Hct 41.3 (39.6-50.0) % MCV 90.6 (80.0-97.0) fL MCH 30.3 (27.0-32.0) pg MCHC 33.4 (32.0-37.0) g/dL Plt Count 272 (140-440) 10*3/uL MPV 8.9 L (9.5-12.2) fL Immature Gran % (Auto) 0.3 % Neutrophils % 73.1 % Lymphocytes % 11.7 % Monocytes % 14.2 % Eosinophils % 0.2 % Basophils % 0.5 % Immature Gran # 0.03 (0.00-0.04) 10*3/uL Neutrophils # 8.06 H (1.80-7.70) 10*3/uL Lymphocytes # 1.29 (0.90-5.00) 10*3/uL Monocytes # 1.57 H (0.20-1.00) 10*3/uL Eosinophils # 0.02 L (0.04-0.35) 10*3/uL Basophils # 0.05 (0.00-0.10) 10*3/uL PT 13.6 H (10.0-12.5) sec INR 1.3 H (<1.2) APTT 28.7 (22.0-30.0) sec Sodium 132 L (137-145) mmol/L Potassium 4.2 (3.5-5.1) mmol/L Chloride 95 L (98-107) mmol/L Carbon Dioxide 27 (22-30) mmol/L Anion Gap 10 mmol/L BUN 13 (9-20) mg/dL Creatinine 0.93 (0.66-1.25) mg/dL Est GFR (CKD-EPI)AfAm >90 (>60 ml/min/1.73 sqM) Est GFR (CKD-EPI)NonAf 80 (>60 ml/min/1.73 sqM) Glucose 120 H (74-99) mg/dL Plasma Lactic Acid Marcelino (0.7-2.0) mmol/L Calcium 8.3 L (8.4-10.2) mg/dL Total Bilirubin 1.0 (0.2-1.3) mg/dL AST 37 (17-59) U/L ALT 32 (4-49) U/L Alkaline Phosphatase 61 (38-126) U/L Total Protein 6.8 (6.3-8.2) g/dL Albumin 3.9 (3.5-5.0) g/dL 05/07/25 Range/Units 19:01 WBC (4.50-10.00) 10*3/uL RBC (4.40-5.60) 10*6/uL Hgb (13.0-17.0) g/dL Hct (39.6-50.0) % MCV (80.0-97.0) fL MCH (27.0-32.0) pg MCHC (32.0-37.0) g/dL Plt Count (140-440) 10*3/uL MPV (9.5-12.2) fL Immature Gran % (Auto) % Neutrophils % % Lymphocytes % % Monocytes % % Eosinophils % % Basophils % % Immature Gran # (0.00-0.04) 10*3/uL Neutrophils # (1.80-7.70) 10*3/uL Lymphocytes # (0.90-5.00) 10*3/uL Monocytes # (0.20-1.00) 10*3/uL Eosinophils # (0.04-0.35) 10*3/uL Basophils # (0.00-0.10) 10*3/uL PT (10.0-12.5) sec INR (<1.2) APTT (22.0-30.0) sec Sodium (137-145) mmol/L Potassium (3.5-5.1) mmol/L Chloride (98-107) mmol/L Carbon Dioxide (22-30) mmol/L Anion Gap mmol/L BUN (9-20) mg/dL Creatinine (0.66-1.25) mg/dL Est GFR (CKD-EPI)AfAm (>60 ml/min/1.73 sqM) Est GFR (CKD-EPI)NonAf (>60 ml/min/1.73 sqM) Glucose (74-99) mg/dL Plasma Lactic Acid Marcelino 1.6 (0.7-2.0) mmol/L Calcium (8.4-10.2) mg/dL Total Bilirubin (0.2-1.3) mg/dL AST (17-59) U/L ALT (4-49) U/L Alkaline Phosphatase (38-126) U/L Total Protein (6.3-8.2) g/dL Albumin (3.5-5.0) g/dL Disposition Clinical Impression: Altered mental status, Pneumonia Disposition: ADMITTED IP TO THIS HOSP Referrals: José Luis Forrester MD [Primary Care Provider] - 1-2 days Time of Disposition: 21:09
--- NOTE | 2025-05-07 20:17 | CT ---
EXAMINATION TYPE: CT brain wo con CT DLP: 1199.7 mGycm, Automated exposure control for dose reduction was used. DATE OF EXAM: 05/07/2025 8:08 PM COMPARISON: None. CLINICAL INDICATION:Male, 74 years old with history of Headache, headache, weakness, ams TECHNIQUE: Brain: Multiple axial CT images of the brain were obtained without IV contrast. . Coronal and sagitta l reformats reviewed. FINDINGS: Brain: Extra-axial spaces: No abnormal extra-axial fluid collections. Ventricular system: Mild diffuse dilatation of the ventricular system. Cerebral parenchyma: Mild diffuse cerebral atrophy. No acute intraparenchymal hemorrhage or mass effe ct. The robertson-white junction is well differentiated. Scattered hypoattenuating areas are seen within the periventricular white matter. Cerebellum: Unremarkable. Mass effect: No evidence of midline shift. Intracranial vasculature: Atherosclerotic calcifications of the intracranial vessels. Soft tissues: Normal. Calvarium/osseous structures: No depressed skull fracture. Paranasal sinuses and mastoid air cells: The mastoid air cells are clear. Left superior sphenoid sinu s 1.3 cm mucous retention cyst. The remaining paranasal sinuses are clear. Visualized orbits: Orbital contents are intact. IMPRESSION: 1. No acute intracranial hemorrhage. 2. Mild dilatation of the ventricular system which could be related to level of cerebral atrophy john stephany normal pressure hydrocephalus. Correlate clinically. 3. Nonspecific mild white matter changes, likely secondary to chronic small vessel ischemic disease. [facility], , 05/07/2025 8:15 PM
[2025-05-07] MEDS ORDERED: PNEUMONIA PROTOCOL UTILIZED 1 EACH MISC PO PRN (21:09)
[2025-05-07] MEDS: cefTRIAXone IN SWFI 1,000 MG/10 ML SYRINGE IVP STA (21:15)
[2025-05-07 21:23] LABS: Bilirubin,Urine Negative (Negative); Blood,Urine Negative (Negative); Color,Urine Yellow; Glucose,Urine (UA) Negative (Negative); Ketones,Urine Negative (Negative); Leukocyte Esterase,Urine Negative (Negative); Nitrite,Urine Negative (Negative); PH, Urine 5.0 (5.0-8.0); Protein,Urine Negative (Negative); Specific Gravity,Urine 1.015 (1.001-1.035); Urobilinogen,Urine <2.0 mg/dL (<2.0)
[2025-05-07 21:34] LABS: Barbiturate Screen,Urine Not Detected (NotDetected); Benzodiazepines Screen,Urine Not Detected (NotDetected); Opiate Screen,Urine Not Detected (NotDetected); Oxycodone Screen, Urine Detected (NotDetected); Phencyclidine Screen,Urine Not Detected (NotDetected); Tricyclic Antidepressant,Urine Not Detected (NotDetected); Urn Cannabinoid Scrn Not Detected (NotDetected)
[2025-05-07] MEDS: AZITHROMYCIN 500 MG in SODIUM CHLORIDE 0.9% 250 ML IVPB STA (21:49)
--- NOTE | 2025-05-07 22:52 | HP ---
HISTORY AND PHYSICAL CHIEF COMPLAINT: Change in mental status, pneumonia, possibly. HISTORY OF PRESENT ILLNESS: This 74-year-old gentleman with past medical history of multiple problems was recently dealing with left patella fracture and subsequently developed DVT, being followed by orthopedic surgeon in the [place] area. The patient had immobilizer yesterday. The patient apparently took Percocet and Benadryl and was sleeping on and off till afternoon, and the patient taken to [facility] and was found to have possibly pneumonia, bilateral, left more than the right, hence the patient admitted for further evaluation and treatment. There is no history of rigors or chills at this time. The patient fever up to 102.5. PAST MEDICAL HISTORY: Reviewed, include CAD, pulmonary embolus, hypertension. Rest of history and chart is also reviewed. HOME MEDICATIONS: Reviewed, include warfarin. Dose and rest of medications reviewed, not confirmed yet. ALLERGIES: None. FAMILY HISTORY: History of prostate cancer. SOCIAL HISTORY: No history of smoking, or alcohol. REVIEW OF SYSTEMS: Could not be taken because of dementia. PHYSICAL EXAMINATION: VITAL SIGNS: Pulse 66, blood pressure 90/60, and respirations 20. CARDIOVASCULAR: S1, S2. RESPIRATIONS: A few scattered rhonchi. Crackles in the bases. ABDOMEN: Soft, nontender. LEGS: Swelling and pain and tenderness in the left knee present. LABORATORY DATA: No other labs are noted. ASSESSMENT: 1. Possibly acute bilateral pneumonia, left more than the right. 2. History of recent DVT of the left leg as well as the patella fracture on the left with severe pain and gait dysfunction. 3. Coronary artery disease. 4. Hypertension. 5. History of pulmonary embolus. 6. History of cholecystectomy. 7. History of multiple complex medical issues. RECOMMENDATIONS: This 74-year-old gentleman presented with multiple complex medical issues. We will monitor the patient closely. The patient is started on Rocephin and Zithromax. We will continue to monitor. Recommend bronchodilators and I would also recommend ultrasound of the leg also. Pain management. Orthopedic evaluation. Guarded prognosis. Further recommendations to follow. CT brain shows some hydrocephalus also. We will also obtain a Neurology consultation also. MMODL / IJN: [id number] /
[2025-05-07 22:59] LABS: RSV Not Detected (Not Detectd)
[2025-05-08] MEDS: APIXABAN 5 MG TAB PO ONE (00:46)
--- NOTE | 2025-05-08 00:51 | US ---
EXAMINATION TYPE: US venous doppler duplex LE LT DATE OF EXAM: 05/07/2025 11:10 PM COMPARISON: NONE CLINICAL INDICATION: Male, 74 years old with history of dvt; patient states hx of dvt in left leg and knee fracture. on thinners TECHNIQUE: The lower extremity deep venous system is examined utilizing real time linear array sonog rashard with graded compression, doppler sonography and color-flow sonography. Grayscale, color doppler , spectral doppler imaging performed of the deep veins of the lower extremities FINDINGS: SIDE PERFORMED: Left VESSELS IMAGED: Common Femoral Vein Deep Femoral Vein Greater Saphenous Vein * Femoral Vein Popliteal Vein Small Saphenous Vein * Proximal Calf Veins (* superficial vessels) slightly limited due to habitus Left Leg: Appears negative for dvt as best seen; There is normal flow, compressibility, vascular wav eforms. directly inferior to the knee and within the left medial calf, adjacent to the proximal calf veins there is a 3.1 x 2.7 x 3.7cm avascular hypoechoic area seen IMPRESSION: 1. No visualized deep venous thrombosis of the left lower extremity. 2. Left medial calf avascular 3.7 cm lesion. Probably represents a hematoma. Correlate clinically. [facility], , 05/08/2025 12:48 AM
--- NOTE | 2025-05-08 02:36 | P.CNPUL ---
History of Present Illness Consult date: 05/08/25 Requesting physician: Ruht Ritter Reason for consult: pneumonia Chief complaint: Altered mental status History of present illness: Patient is a 74-year-old male with past medical history significant for hypertension, hypothyroidism, previous surgical aortic valve replacement and subsequent TAVR, DVT/PE, inferior vena cava filter, and anticoagulant Eliquis. Recently, patient fractured his left patella. He has been seeing physical therapy, and this flared up some pain in his left knee. Other than this, patient was reportedly feeling well without any concerns or complaints. Took a Benadryl and Percocet on 05/06 prior to going to bed. Did not wake up at his usual time in the morning. Confused, slow to respond, and extremely fatigued. During his evaluation in the emergency department found to have a fever of 102.5 F. Chest x-ray showing cardiomegaly, old sternal wires with what appears to be a fractured segment displaced over right chest laterally, a basilar infiltrate best seen on lateral view. CBC: WBC count 11, hemoglobin 13.8, platelets 272. CMP: Sodium 132, potassium 4.2, chloride 95, serum bicarb 13, BUN 0.93, glucose 120. Lactic 1.6. NT-proBNP 486. Urinalysis was unremarkable for infection. Urine toxicology screen positive for oxycodone. Viral 4 Plex negative for influenza A/B, RSV, COVID. Patient currently being seen in the emergency department. He is alert and fully oriented. His mentation has returned back to baseline. On room air. Denies any shortness of breath, cough, sputum production, hemoptysis, chest pain, or previous fevers prior to coming the ED. Denies recent sick contacts. Denies any nausea, vomiting, diarrhea, abdominal pain. Denies any dysuria, hematuria, suprapubic tenderness, flank pain. Left knee appears postsurgical. No heat or erythema. Good active range of motion. Previously started on azithromycin and Rocephin in the ED. Currently afebrile. Nontoxic appearance. Review of Systems Constitutional: Reports fever, Denies chills, Denies fatigue, Denies poor appetite, Denies weight gain, Denies weight loss Ears, nose, mouth and throat: Denies headache, Denies nasal congestion, Denies nasal discharge, Denies post-nasal drip, Denies sinus pain, Denies sinus pressure, Denies sore throat Cardiovascular: Denies chest pain, Denies leg edema, Denies lightheadedness, Denies orthopnea, Denies palpitations, Denies paroxysmal nocturnal dyspnea, Denies shortness of breath, Denies syncope Respiratory: Denies congestion, Denies cough, Denies dyspnea, Denies hemoptysis, Denies pain on inspiration Gastrointestinal: Denies abdominal pain, Denies diarrhea, Denies nausea, Denies vomiting Genitourinary: Denies dysuria, Denies flank pain, Denies hematuria, Denies urinary frequency Musculoskeletal: Denies limitation of motion, Denies myalgias, Denies redness of joints Integumentary: Denies rash, Denies wounds Neurological: Denies change in speech, Denies head injury, Denies headaches, Denies numbness, Denies paralysis, Denies paresthesias, Denies seizures, Denies syncope, Denies tremors, Denies visual changes Psychiatric: Denies anxiety, Denies depression Past Medical History Past Medical History: Coronary Artery Disease (CAD), Deep Vein Thrombosis (DVT), GERD/Reflux, Hypertension, Pulmonary Embolus (PE), Thyroid Disorder Additional Past Medical History / Comment(s): shortness of breath with exertion History of Any Multi-Drug Resistant Organisms: None Reported Past Surgical History: Back Surgery, Cholecystectomy, Hernia Repair, Joint Replacement, Orthopedic Surgery Additional Past Surgical History / Comment(s): aortic valve replacement, aortic root repair, nurys knee replacement,rt shoulder rotator cuff , RAMANA-04/15/19, replacement of the replaced aortic valve. left patella fracture Past Anesthesia/Blood Transfusion Reactions: No Reported Reaction Additional Past Anesthesia/Blood Transfusion Reaction / Comment(s): headache after having orthopedic surgery Past Psychological History: No Psychological Hx Reported Smoking Status: Never smoker Past Alcohol Use History: None Reported Past Drug Use History: None Reported - Past Family History Mother Family Medical History: No Reported History Father Family Medical History: Cancer Additional Family Medical History / Comment(s): prostate cancer Medications and Allergies Home Medications Medication Instructions Recorded Confirmed Type Furosemide [Lasix] 40 mg PO DAILY 10/01/14 04/30/19 History Levothyroxine Sodium [Synthroid] 88 mcg PO DAILY 10/01/14 04/30/19 History Losartan Potassium [Cozaar] 100 mg PO DAILY 10/01/14 04/30/19 History Metaxalone [Skelaxin] 800 mg PO TID PRN 10/01/14 04/30/19 History Warfarin [Coumadin] 5 mg PO SUMOTUTHFRSA 10/01/14 04/26/19 History Warfarin [Coumadin] 2.5 mg PO WE 10/02/14 04/26/19 History Spironolactone [Aldactone] 12.5 mg PO DAILY 04/12/19 04/30/19 History Allergies Allergy/AdvReac Type Severity Reaction Status Date / Time No Known Allergies Allergy Verified 05/07/25 18:16 Physical Exam Vitals: Vital Signs Temp Pulse Resp BP Pulse Ox 05/07/25 23:46 56 L 18 106/56 98 05/07/25 21:17 99.0 F 69 18 101/58 95 05/07/25 18:10 102.5 F H 66 20 95/67 95 Intake and Output 05/07/25 05/07/25 05/08/25 14:59 22:59 06:59 Other: Weight 131.542 kg 131.542 kg GENERAL EXAM: Alert, 74-year-old obese male, comfortable in no apparent distr ess. HEAD: Normocephalic and atraumatic EYES: Normal reaction of pupils, equal size. NOSE: Clear with pink turbinates. THROAT: No erythema or exudates. NECK: No masses, no JVD. CHEST: No chest wall deformity. LUNGS: Equal air entry with minimal left basilar inspiratory crackles. No conversational dyspnea or accessory muscle use.. CVS: S1 and S2 normal with soft systolic murmur, regular rhythm. No other extra heart sounds ABDOMEN: No hepatosplenomegaly, active bowel sounds, no guarding or rigidity. SPINE: No scoliosis or deformity SKIN: No rashes CENTRAL NERVOUS SYSTEM: Alert and fully oriented, cranial nerves II through XII intact, bilateral upper and lower extremity strength grade 5/5, no ataxia. EXTREMITIES: There is no peripheral edema, clubbing, or cyanosis. Peripheral pulses are intact. Results - Laboratory Findings CBC and BMP: 05/07/25 19:01 05/07/25 19:01 PT/INR, D-dimer PT 13.6 sec (10.0-12.5) H 05/07/25 19: INR 1.3 (<1.2) H 05/07/25 19:01 Abnormal lab findings: Abnormal Labs 05/07/25 05/07/25 05/07/25 19:01 19:01 19:01 WBC 11.02 H MPV 8.9 L Neutrophils # 8.06 H Monocytes # 1.57 H Eosinophils # 0.02 L PT 13.6 H INR 1.3 H Sodium 132 L Chloride 95 L Glucose 120 H Calcium 8.3 L Ur Oxycodone Screen 05/07/25 21:09 WBC MPV Neutrophils # Monocytes # Eosinophils # PT INR Sodium Chloride Glucose Calcium Ur Oxycodone Screen Detected H - Diagnostic Findings Chest x-ray: image reviewed Assessment and Plan Assessment: Altered mental status, likely secondary to medication effect; brain CT did not show any acute intracranial hemorrhage. Mild dilation of the ventricular system which could be related to level of cerebral atrophy versus normal pressure hydrocephalus. Acute febrile illness Possible aspiration pneumonitis, chest x-ray showing cardiomegaly, old sternal wires with what appears to be a fractured segment displaced over right chest laterally, a basilar infiltrate best seen on lateral view. 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 of inferior vena cava filter History of left patellar fracture History of hypothyroidism Obesity, with a BMI of 39.3 kg/m Plan: Patient's medications, labs, imaging reviewed Mentation has returned back to baseline Currently, on room air and relatively asymptomatic from a pulmonary standpoint Continue empiric antibiotics Check procalcitonin level Blood cultures pending Repeat chest x-ray in the morning We will continue to follow I have personally seen and examined the patient, performed the documentation and the assessment and plan as written. Number of minutes spent on the visit:20 Time with Patient: Greater than 30
[2025-05-08] MEDS: LEVOTHYROXINE 88 MCG TAB PO SCH (06:37)
--- NOTE | 2025-05-08 08:05 | XR ---
EXAMINATION TYPE: XR chest 2V DATE OF EXAM: 05/08/2025 7:59 AM COMPARISON: 05/07/2025 CLINICAL INDICATION: Male, 74 years old with history of pneumonia, , TECHNIQUE: PA and lateral views FINDINGS: Heart is mildly enlarged. Median sternotomy wires are present. Mild interstitial prominence. Hyperinf lation. Endovascular aortic valve replacement. No pleural effusion. IMPRESSION: Mild cardiomegaly and COPD. There may be subtle underlying interstitial changes which could reflect p ulmonary vascular congestion versus atypical pneumonias. [facility], Workstation: [facility], 05/08/2025 8:03 AM
[2025-05-08 08:33] LABS: HCT 41.6 % (39.6-50.0); HGB 13.3 g/dL (13.0-17.0); MCH 29.7 pg (27.0-32.0); MCHC 32.0 g/dL (32.0-37.0); MCV 92.9 FL (80.0-97.0); NRBC Per 100 WBC 0 X 10*3/uL (0.00-0.01); Platelet Count 240 X 10*3/uL (140-440); RBC 4.48 X 10*6/uL (4.40-5.60); RDW 13.8 % (11.5-14.5); WBC 9.08 X 10*3/uL (4.50-10.00)
[2025-05-08 08:56] LABS: ALT 32 U/L (10-49); AST 28 U/L (14-35); Albumin 3.5 g/dL (3.8-4.9); Albumin/Globulin Ratio 1.25 Ratio (1.60-3.17); Alkaline Phosphatase 69 U/L (41-126); Anion Gap 13.80 mmol/L (4.00-12.00); BUN/Creat Ratio 13.70 Ratio (12.00-20.00); Blood Urea Nitrogen 13.7 mg/dL (9.0-27.0); Calcium 8.5 mg/dL (8.7-10.3); Carbon Dioxide 23.2 mmol/L (21.6-31.8); Chloride 96 mmol/L (96-109); Globulin 2.8 g/dL (1.6-3.3); Glucose 135 mg/dL (70-110); Potassium 4.4 mmol/L (3.5-5.5); Sodium 133 mmol/L (135-145); Total Protein 6.3 g/dL (6.2-8.2)
[2025-05-08 09:06] LABS: Basophils # (A) 0.06 X 10*3/uL (0.00-0.10); Basophils % (A) 0.7 %; Eosinophils # (A) 0.10 X 10*3/uL (0.04-0.35); Eosinophils % (A) 1.1 %; Immature Grans, Automated 0.40 %; Lymphocytes # (A) 1.75 X 10*3/uL (0.90-5.00); Lymphocytes % (A) 19.3 %; Monocytes # (A) 1.73 X 10*3/uL (0.20-1.00); Monocytes % (A) 19.1 %; Neutrophils # (A) 5.40 X 10*3/uL (1.80-7.70); Neutrophils % (A) 59.4 %; RBC Morphology Normal (Normal)
[2025-05-08] MEDS: LOSARTAN 50 MG TAB PO SCH (09:53)
[2025-05-08] MEDS: FUROSEMIDE 40 MG TAB PO SCH (09:53)
[2025-05-08] MEDS: APIXABAN 5 MG TAB PO SCH (09:54)
[2025-05-08] MEDS: SPIRONOLACTONE 25 MG TAB PO SCH (09:54)
--- NOTE | 2025-05-08 14:16 | CT ---
EXAMINATION TYPE: CT chest wo con CT DLP: 868.1 mGycm, Automated exposure control for dose reduction was used. DATE OF EXAM: 05/08/2025 1:30 PM COMPARISON: Chest radiograph 05/08/2025, CTA chest 04/22/2019 CLINICAL INDICATION:Male, 74 years old with history of Pneumonia?; PHH, Pneumonia, AMS TECHNIQUE: Multiple axial images were obtained through the chest without IV contrast. Lack of IV or o ral contrast limits evaluation of solid and hollow organ viscera. . Coronal and sagittal reformats re viewed. FINDINGS: LUNGS/ PLEURA: No pneumothorax. Elevation the right hemidiaphragm. Minimal dependent right lower lobe linear scar or atelectasis. Bilateral lower lobe pleural thickening. No suspicious pulmonary nodule or mass. Mild centrilobular emphysematous changes. AIRWAY: Patent and unremarkable.. HEART: Size within normal limits. . Aortic valvular repair changes. No pericardial effusion. No signi ficant coronary artery calcifications. MEDIASTINUM: No gross evidence of adenopathy. VASCULATURE: No aortic aneurysm. Mild atherosclerotic calcification of the aorta and its branches. MUSCULOSKELETAL: No acute osseous abnormalities. Sternotomy changes. There is again fracture of the m ost superior sternotomy wire with a portion extending along the anterior aspect of the right clavicul ar head. Bilateral shoulder arthropathy. Multilevel anterior osteophytosis of the visualized thoracol umbar spine. Grade 1 anterolisthesis of C7 on T1. Partial visualization of lumbar fusion hardware. SOFT TISSUES/LYMPH NODES: Unremarkable. LOWER NECK: No significant findings. UPPER ABDOMEN: The liver is diffusely hypoattenuating. Gallbladder surgically absent. Small hiatal he rnia. Small fat filled broad-based epigastric ventral wall hernia containing fat. Defect measures up to 2.8 cm in diameter. IMPRESSION: 1. No acute thoracic process. 2. Mild COPD changes. 3. Hepatic steatosis. [facility], , 05/08/2025 2:13 PM
[2025-05-08] MEDS: ACETAMINOPHEN TAB 325 MG TAB PO PRN (17:32)
--- NOTE | 2025-05-08 19:58 | PN ---
PROGRESS NOTE DATE OF SERVICE: 05/08/2025 SUBJECTIVE: This 74-year-old gentleman with change in mental status and possible pneumonia is being closely monitored. Since sodium improved, Pulmonary ordered CT scan of the chest. OBJECTIVE: VITAL SIGNS: Pulse is 73, blood pressure 114/70, respirations 15. CHEST: A few scattered rhonchi and crackles. ABDOMEN: Soft. NERVOUS SYSTEM: No focal deficits. LABORATORY DATA: Reviewed. ASSESSMENT: 1. Possible acute bilateral pneumonia, left more than the right. 2. History of recent deep vein thrombosis of the left leg as well as patella fracture on the left with severe pain and gait dysfunction. 3. History of coronary artery disease. 4. Hypertension. 5. History of pulmonary embolus. 6. History of cholecystectomy. 7. History of multiple complex medical issues. RECOMMENDATIONS AND DISCUSSION: I recommend to continue current management and treatment. CT scan of the chest was ordered. The patient is on empiric antibiotics. I recommend to repeat labs tomorrow. White count is improving. Continue with antibiotics. Await CT report. Guarded prognosis. Further recommendations to follow. MMODL / IJN: [id number] /
[2025-05-08] MEDS: AZITHROMYCIN 500 MG TAB PO SCH (20:33)
[2025-05-08] MEDS: IBUPROFEN 600 MG TAB PO PRN (21:45)
--- NOTE | 2025-05-08 22:39 | P.CONS ---
History of Present Illness - Reason for Consult Consult date: 05/08/25 Fever Requesting physician: Ruth Ritter - Chief Complaint Mental status changes weakness x 1 day - History of Present Illness Patient is a 74-year-old male with a past medical history significant for Coronary Artery Disease (CAD), Deep Vein Thrombosis (DVT), GERD/Reflux, Hypertension, Pulmonary Embolus (PE), Thyroid Disorder, was brought into the hospital concern for patient having mental status changes bilaterally was unable to wake the patient up in the morning night before he did took Percocet and Benadryl because of his left knee pain apparently the patient did have a fall recently and seem to have injured the left knee keep patient did have some swelling to the left knee area also complaining of pain which is sharp moderate intensity without radiation patient complaining of some headache no URI symptoms photophobia no chest pain shortness of breath did have occasional cough no nausea vomiting no abdominal pain no diarrhea on presentation to the hospital he did have a fever of 102.5 F patient was not tachycardic hypotensive or hypoxic he did have elevated white count 11.02 with a left shift creatinine 0.93 liver enzymes are normal procalcitonin 0.08 UA has been negative urine testing positive for oxycodone influenza RSV COVID testing was negative patient did have a chest x-ray no acute cardiopulmonary disease process also have a CT of the chest no acute thoracic process mild COPD changes patient has been treated with ceftriaxone and Zithromax infectious disease was consulted because of fever Review of Systems Positive point and negatives has been mentioned in the HPI, complete review of systems was performed and all other systems are negative Past Medical History Past Medical History: Coronary Artery Disease (CAD), Deep Vein Thrombosis (DVT), GERD/Reflux, Hypertension, Pulmonary Embolus (PE), Thyroid Disorder Additional Past Medical History / Comment(s): shortness of breath with exertion History of Any Multi-Drug Resistant Organisms: None Reported Past Surgical History: Back Surgery, Cholecystectomy, Hernia Repair, Joint Replacement, Orthopedic Surgery Additional Past Surgical History / Comment(s): aortic valve replacement, aortic root repair, nurys knee replacement,rt shoulder rotator cuff , RAMANA-04/15/19, replacement of the replaced aortic valve. left patella fracture Past Anesthesia/Blood Transfusion Reactions: No Reported Reaction Additional Past Anesthesia/Blood Transfusion Reaction / Comm: headache after having orthopedic surgery Past Psychological History: No Psychological Hx Reported Smoking Status: Never smoker Past Alcohol Use History: None Reported Past Drug Use History: None Reported - Past Family History Mother Family Medical History: No Reported History Father Family Medical History: Cancer Additional Family Medical History / Comment(s): prostate cancer Medications and Allergies Home Medications Medication Instructions Recorded Confirmed Type Furosemide [Lasix] 40 mg PO DAILY 10/01/14 05/08/25 History Levothyroxine Sodium [Synthroid] 88 mcg PO DAILY 10/01/14 05/08/25 History Losartan Potassium [Cozaar] 100 mg PO DAILY 10/01/14 05/08/25 History Spironolactone [Aldactone] 12.5 mg PO DAILY 04/12/19 05/08/25 History Apixaban [Eliquis] 5 mg PO BID 05/08/25 05/08/25 History Ibuprofen [Motrin] 800 mg PO TID PRN 05/08/25 05/08/25 History Allergies Allergy/AdvReac Type Severity Reaction Status Date / Time No Known Allergies Allergy Verified 05/08/25 07:25 Physical Exam Vitals: Vital Signs Temp Pulse Pulse Resp BP BP Pulse Ox 05/08/25 07:47 98.4 F 73 15 143/75 95 05/08/25 00:57 97.4 F L 61 16 130/83 96 05/07/25 23:46 56 L 18 106/56 98 05/07/25 21:17 99.0 F 69 18 101/58 95 05/07/25 18:10 102.5 F H 66 20 95/67 95 Intake and Output 05/07/25 05/08/25 05/08/25 22:59 06:59 14:59 Other: # Voids 1 Weight 131.542 kg 131.542 kg GENERAL DESCRIPTION: Elderly male up in the chair, no distress. No tachypnea or accessory muscle of respiration use. HEENT: Shows Pallor , no scleral icterus. Oral mucous membrane is dry. No pharyngeal erythema or thrush NECK: Trachea central, no thyromegaly. LUNGS: Unlabored breathing. Clear to auscultation anteriorly. No wheeze or crackle. HEART: S1, S2, regular rate and rhythm. No loud murmur ABDOMEN: Soft, no tenderness , guarding or rigidity, no organomegaly EXTREMITIES: Left knee is swollen slightly warm and tender to touch SKIN: No rash, no masses palpable. NEUROLOGICAL: The patient is awake, alert, oriented x3, mood and affect normal. Results CBC & Chem 7: 05/08/25 04:23 05/08/25 04:23 Labs: Abnormal Lab Results - Last 24 Hours (Table) 05/07/25 05/07/25 05/07/25 Range/Units 19:01 19:01 19:01 WBC 11.02 H (4.50-10.00) 10*3/uL MPV 8.9 L (9.5-12.2) fL Neutrophils # 8.06 H (1.80-7.70) 10*3/uL Monocytes # 1.57 H (0.20-1.00) 10*3/uL Eosinophils # 0.02 L (0.04-0.35) 10*3/uL PT 13.6 H (10.0-12.5) sec INR 1.3 H (<1.2) Sodium 132 L (137-145) mmol/L Chloride 95 L (98-107) mmol/L Anion Gap (4.00-12.00) mmol/L Glucose 120 H (74-99) mg/dL Calcium 8.3 L (8.4-10.2) mg/dL Albumin (3.8-4.9) g/dL Albumin/Globulin Ratio (1.60-3.17) Ratio Ur Oxycodone Screen (NotDetected) 05/07/25 05/08/25 05/08/25 Range/Units 21:09 04:23 04:23 WBC (4.50-10.00) 10*3/uL MPV 9.4 L (9.5-12.2) fL Neutrophils # (1.80-7.70) 10*3/uL Monocytes # 1.73 H (0.20-1.00) 10*3/uL Eosinophils # (0.04-0.35) 10*3/uL PT (10.0-12.5) sec INR (<1.2) Sodium 133 L (137-145) mmol/L Chloride (98-107) mmol/L Anion Gap 13.80 H (4.00-12.00) mmol/L Glucose 135 H (74-99) mg/dL Calcium 8.5 L (8.4-10.2) mg/dL Albumin 3.5 L (3.8-4.9) g/dL Albumin/Globulin Ratio 1.25 L (1.60-3.17) Ratio Ur Oxycodone Screen Detected H (NotDetected) Assessment and Plan (1) Fever Current Visit: Yes Status: Acute Code(s): R50.9 - FEVER, UNSPECIFIED SNOMED Code(s): 301606904 (2) Cellulitis of left knee Current Visit: Yes Status: Acute Code(s): L03.116 - CELLULITIS OF LEFT LOWER LIMB SNOMED Code(s): 05384427721405600 Plan: 1patient presented to hospital with weakness mental status changes in this patient also have a fever recent history of a injury to the left knee And now the patient to have pain to the left knee area tenderness swelling and warmth to the left knee area concerning for left knee cellulitis clinically doubt pneumonia as no significant respiratory symptoms chest x-ray has been negative procalcitonin was normal urine has been negative and no other obvious focus of infection clinically 2-we will obtain x-ray of the knee and check inflammatory markers 3-will benefit from Ortho evaluation and possible aspiration of the left knee 4-continue with empiric Rocephin we have improvement in the fever pattern at the bedside question answered We will follow on clinical condition and cultures to further adjust medication if needed Thank you for this consultation we will follow the patient along with you Dictation was produced using [email or web address] dictation software. please excuse any grammatical, word or spelling errors. Time with Patient: Greater than 30
[2025-05-09 07:50] LABS: HCT 40.4 % (39.6-50.0); HGB 13.2 g/dL (13.0-17.0); Lymphocytes % (A) 17.1 %; MCH 29.7 pg (27.0-32.0); MCHC 32.7 g/dL (32.0-37.0); MCV 90.8 FL (80.0-97.0); Monocytes % (A) 18.3 %; NRBC Per 100 WBC 0 X 10*3/uL (0.00-0.01); Neutrophils % (A) 63.6 %; Platelet Count 227 X 10*3/uL (140-440); RBC 4.45 X 10*6/uL (4.40-5.60); RDW 13.7 % (11.5-14.5); WBC 8.02 X 10*3/uL (4.50-10.00)
[2025-05-09 07:51] LABS: Basophils # (A) 0.05 X 10*3/uL (0.00-0.10); Basophils % (A) 0.6 %; Eosinophils # (A) 0.02 X 10*3/uL (0.04-0.35); Eosinophils % (A) 0.2 %; Immature Grans, Automated 0.20 %; Lymphocytes # (A) 1.37 X 10*3/uL (0.90-5.00); Monocytes # (A) 1.47 X 10*3/uL (0.20-1.00); Neutrophils # (A) 5.09 X 10*3/uL (1.80-7.70)
[2025-05-09 08:37] LABS: Anion Gap 13.50 mmol/L (4.00-12.00); BUN/Creat Ratio 16.33 Ratio (12.00-20.00); Blood Urea Nitrogen 14.7 mg/dL (9.0-27.0); Calcium 8.3 mg/dL (8.7-10.3); Carbon Dioxide 24.5 mmol/L (21.6-31.8); Chloride 95 mmol/L (96-109); Glucose 123 mg/dL (70-110); Potassium 4.0 mmol/L (3.5-5.5); Sodium 133 mmol/L (135-145)
--- NOTE | 2025-05-09 10:51 | XR ---
EXAMINATION TYPE: XR knee complete LT DATE OF EXAM: 05/09/2025 10:42 AM COMPARISON: 04/14/2025 CLINICAL INDICATION: Male, 74 years old with history of Fever and pain; PHH, pain TECHNIQUE: 3 views FINDINGS: There is a total knee arthroplasty. With both distal femoral proximal to the components of prosthesis remain well seated. There is a persistent small knee joint effusion. No marginal erosions are seen. Unchanged fragmented spur at the upper pole of the patella. IMPRESSION: Stable appearance of the left total knee arthroplasty with a nonspecific small knee joint effusion. N o acute osseous abnormality seen. [facility], Workstation: [facility], 05/09/2025 10:49 AM
--- NOTE | 2025-05-09 14:08 | P.PN ---
Subjective Progress Note Date: 05/09/25 Patient is a 74-year-old male with past medical history significant for hypertension, hypothyroidism, previous surgical aortic valve replacement and subsequent TAVR, DVT/PE, inferior vena cava filter, and anticoagulant Eliquis. Recently, patient fractured his left patella. He has been seeing physical alicia, and this flared up some pain in his left knee. Other than this, patient was reportedly feeling well without any concerns or complaints. Took a Benadryl and Percocet on 05/06 prior to going to bed. Did not wake up at his usual time in the morning. Confused, slow to respond, and extremely fatigued. During his evaluation in the emergency department found to have a fever of 102.5 F. Chest x-ray showing cardiomegaly, old sternal wires with what appears to be a fractured segment displaced over right chest laterally, a basilar infiltrate best seen on lateral view. CBC: WBC count 11, hemoglobin 13.8, platelets 272. CMP: Sodium 132, potassium 4.2, chloride 95, serum bicarb 13, BUN 0.93, glucose 120. Lactic 1.6. NT-proBNP 486. Urinalysis was unremarkable for infection. Urine toxicology screen positive for oxycodone. Viral 4 Plex negative for influenza A/B, RSV, COVID. Patient currently being seen in the emergency department. He is alert and fully oriented. His mentation has returned back to baseline. On room air. Denies any shortness of breath, cough, sputum production, hemoptysis, chest pain, or previous fevers prior to coming the ED. Denies recent sick contacts. Denies any nausea, vomiting, diarrhea, abdominal pain. Denies any dysuria, hematuria, suprapubic tenderness, flank pain. Left knee appears postsurgical. No heat or erythema. Good active range of motion. Previously started on azithromycin and Rocephin in the ED. Currently afebrile. Nontoxic appearance. The patient is seen today May 09, 2025 in follow-up on the regular medical floor. He is currently sitting up in a chair at the bedside. Awake and alert in no acute distress. Denies any worsening shortness of breath, cough or congestion. Maintaining good O2 saturations in the 90s on room air oxygen. He continues to to spike fevers. Currently 102.0. Hemodynamically stable. White count 8.0. Hemoglobin 13.2. Platelets 227. ESR 62. Sodium 133. Potassium 4.0. Bicarb 25. BUN 15. Creatinine 0.9. Glucose 123. C-reactive protein 2.90. He is continued on ceftriaxone and azithromycin. Remains on oral diuretics. Anticoagulated with Eliquis. Tylenol for his fever. CT scan of the chest revealed no acute thoracic process. X-ray of the left knee revealed stable appearance of the left total knee arthroplasty with nonspecific small knee joint effusion. No acute osseous abnormality seen. Objective - Vital Signs Vital signs: Vital Signs Temp 98.9 F 05/09/25 07:18 Pulse 67 05/09/25 07:18 Resp 18 05/09/25 07:18 BP 121/66 05/09/25 07:18 Pulse Ox 95 05/09/25 07:18 FiO2 Intake & Output 05/08/25 05/09/25 05/09/25 18:59 06:59 18:59 Other: # Voids 7 1 # Bowel Movements 1 - Exam GENERAL EXAM: Alert, pleasant 74-year-old obese male, up in a chair, on room air, comfortable in no apparent distress. HEAD: Normocephalic and atraumatic EYES: Normal reaction of pupils, equal size. NOSE: Clear with pink turbinates. THROAT: No erythema or exudates. NECK: No masses, no JVD. CHEST: No chest wall deformity. LUNGS: Equal air entry with minimal left basilar inspiratory crackles. No conversational dyspnea or accessory muscle use.. CVS: S1 and S2 normal with soft systolic murmur, regular rhythm. No other extra heart sounds ABDOMEN: No hepatosplenomegaly, active bowel sounds, no guarding or rigidity. SPINE: No scoliosis or deformity SKIN: No rashes CENTRAL NERVOUS SYSTEM: Alert and fully oriented, cranial nerves II through XII intact, bilateral upper and lower extremity strength grade 5/5, no ataxia. EXTREMITIES: There is no peripheral edema, clubbing, or cyanosis. Peripheral pulses are intact. - Labs CBC & Chem 7: 05/09/25 05:02 05/09/25 05:02 Labs: Abnormal Lab Results - Last 24 Hours (Table) 05/09/25 05/09/25 Range/Units 05:02 05:02 Monocytes # 1.47 H (0.20-1.00) X 10*3/uL Eosinophils # 0.02 L (0.04-0.35) X 10*3/uL ESR 62 H (0-20) mm/Hr Sodium 133 L (135-145) mmol/L Chloride 95 L (96-109) mmol/L Anion Gap 13.50 H (4.00-12.00) mmol/L Glucose 123 H (70-110) mg/dL Calcium 8.3 L (8.7-10.3) mg/dL C-Reactive Protein 2.90 H (0.00-0.80) mg/dL Microbiology - Last 24 Hours (Table) 05/07/25 19:01 Blood Culture - Preliminary Blood Assessment and Plan Assessment: Altered mental status, likely secondary to medication effect; brain CT did not show any acute intracranial hemorrhage. Mild dilation of the ventricular system which could be related to level of cerebral atrophy versus normal pressure h ydrocephalus Possible aspiration pneumonitis, chest x-ray showing cardiomegaly, old sternal wires with what appears to be a fractured segment displaced over right chest laterally, a basilar infiltrate best seen on lateral view. However CT scan of the chest reveals no acute thoracic process. Mild COPD changes. Hepatic steatosis. Procalcitonin negative at 0.08 Acute febrile illness of unknown origin Recent left knee total arthroplasty. X-ray reveals stable appearance with nonspecific small knee joint effusion. No acute osseous abnormality seen. 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 of inferior vena cava filter History of left patellar fracture History of hypothyroidism Obesity, with a BMI of 39.3 kg/m Plan: The patient was seen and evaluated Labs and medications reviewed CT scan of the chest reviewed X-ray of the right knee reviewed Remains on ceftriaxone and azithromycin Infectious disease is following CT scan of the abdomen pelvis pending Stable and on room air oxygen Plan is for home to at discharge To continue with outpatient physical therapy as scheduled I have personally seen and examined the patient, performed the documentation and the assessment and plan as written. Number of minutes spent on the visit: 10 Dictation was produced using [employer] dictation software. Please excuse any grammatical, word or spelling errors.
[2025-05-09] MEDS: IOPAMIDOL CONTRAST (ORAL USE) VIAL PO PRN (15:01)
--- NOTE | 2025-05-09 15:44 | P.PN ---
Subjective Progress Note Date: 05/09/25 Principal diagnosis: Reason for follow-up is fever patient is a 74-year-old male with a past medical history significant for Coronary Artery Disease (CAD), Deep Vein Thrombosis (DVT), GERD/Reflux, Hypertension, Pulmonary Embolus (PE), Thyroid Disorder, was brought into the hospital concern for patient having mental status changes patient also have a fever found this consultation. On today's evaluation that is 05/09/2025, the patient did have another fever of 102 F this afternoon, patient mention overall improvement in his mentation denies any chest pain shortness of breath or cough no nausea vomiting no abdominal pain or any worsening pain to the left knee area. Patient white count is 8.02, creatinine 0.9 CRP 2.[address] of the chest was negative for any pneumonia left knee x-ray with minimal effusion Objective - Vital Signs Vital signs: Vital Signs Temp 98.9 F 05/09/25 07:18 Pulse 67 05/09/25 07:18 Resp 18 05/09/25 07:18 BP 121/66 05/09/25 07:18 Pulse Ox 95 05/09/25 07:18 FiO2 Intake & Output 05/08/25 05/09/25 05/09/25 18:59 06:59 18:59 Other: # Voids 7 1 # Bowel Movements 1 - Exam GENERAL DESCRIPTION: An elderly male up in the chair in no distress RESPIRATORY SYSTEM: Unlabored breathing , decreased breath sounds at bases HEART: S1 S2 regular rate and rhythm , ABDOMEN: Soft , no tenderness EXTREMITIES: Left knee with minimal swelling no redness minimal warmth - Labs CBC & Chem 7: 05/09/25 05:02 05/09/25 05:02 Labs: Abnormal Lab Results - Last 24 Hours (Table) 05/09/25 05/09/25 Range/Units 05:02 05:02 Monocytes # 1.47 H (0.20-1.00) X 10*3/uL Eosinophils # 0.02 L (0.04-0.35) X 10*3/uL ESR 62 H (0-20) mm/Hr Sodium 133 L (135-145) mmol/L Chloride 95 L (96-109) mmol/L Anion Gap 13.50 H (4.00-12.00) mmol/L Glucose 123 H (70-110) mg/dL Calcium 8.3 L (8.7-10.3) mg/dL C-Reactive Protein 2.90 H (0.00-0.80) mg/dL Microbiology - Last 24 Hours (Table) 05/07/25 19:01 Blood Culture - Preliminary Blood Assessment and Plan (1) Fever Current Visit: Yes Status: Acute Code(s): R50.9 - FEVER, UNSPECIFIED SNOMED Code(s): 531829366 (2) Cellulitis of left knee Current Visit: Yes Status: Acute Code(s): L03.116 - CELLULITIS OF LEFT LOWER LIMB SNOMED Code(s): 89834646320226802 Plan: 1patient presented to hospital with weakness mental status changes in this patient also have a fever recent history of a injury to the left knee And now the patient to have pain to the left knee area tenderness swelling and warmth to the left knee area concerning for left knee cellulitis clinically doubt pneumonia as no significant respiratory symptoms chest x-ray has been negative procalcitonin was normal urine has been negative and no other obvious focus of infection clinically 2-x-ray of the knee shows minimal effusion no bony changes CRP mildly elevated 3-we will obtain a CT of abdominal pelvis to rule out any intra-abdominal pathology causing his fever Case has been discussed detail with RECREATIONAL THERAPIST for admitting team continue with empiric Rocephin Dictation was produced using [employer] dictation software. please excuse any gra mmatical, word or spelling errors. Time with Patient: Less than 30
--- NOTE | 2025-05-09 17:01 | CT ---
EXAMINATION TYPE: CT abdomen pelvis w con DATE OF EXAM: 05/09/2025 4:44 PM COMPARISON: None. CLINICAL INDICATION: Male, 74 years old with history of Fever and abdominal distention, fever and abd ominal distension TECHNIQUE:CT scan of the abdomen and pelvis is performed with Oral Contrast and with IV Contrast, pat ient injected with 100ml mL of Isovue 300. CT DLP: 2787.4 mGycm, Automated exposure control for dose reduction was used. FINDINGS: LUNG BASES-: No visible nodule. No infiltrate. Pleural thickening right lung base. LIVER/GB: The gallbladder is surgically absent. No space occupying hepatic lesion. Biliary tree is of normal caliber. PANCREAS: No inflammation. No distinct mass. SPLEEN: No splenic enlargement. No lesion seen. ADRENALS: No nodule. No thickening. KIDNEYS/BLADDER: No hydronephrosis. No nephrolithiasis. No distinct renal mass. Urinary bladder g rossly unremarkable. BOWEL: Normal appendix. Normal bowel caliber. No inflammation. GENITAL ORGANS: No gross abnormality. LYMPH NODES: No greater than 1cm abdominal or pelvic lymph nodes are appreciated. AORTA: No significant abnormality. OSSEOUS STRUCTURES: Postoperative changes of lumbar laminectomy and fusion. OTHER: IVC filter noted to be in place. IMPRESSION: 1. No acute intra-abdominal or intrapelvic process. [facility], , 05/09/2025 4:59 PM
--- NOTE | 2025-05-10 05:24 | P.PN ---
Subjective Progress Note Date: 05/09/25 This is a 74-year-old male who was recently admitted with change in mental status with concerns of possible pneumonia, possibly aspiration being followed by pulmonary along with infectious disease. Patient did have a few isolated low-grade temps and underwent CT chest showing no acute process. Patient was initially scheduled for discharge although developed a 102 temp this afternoon and CT abdomen pelvis is ordered and pending per infectious disease. Patient was given incentive spirometer and encouraged continued incentive spirometer use at least 10 times every hour while awake. Patient is empirically on antibiotics in the form of ceftriaxone and Zithromax being completed. Pulmonary following as well will be continued on current regimen. Patient is currently on room air and wants to go home. Patient reports is feeling well with no chest pain, shortness of breath, or palpitations. Patient is having some mild left knee pain and recently had left patellar fracture. Mild swelling noted with a small effusion on imaging and will be following with his orthopedics outpatient. Review of systems: Constitutional: No reports of fatigue, having intermittent fever, denies chills Cardiovascular: No reports of chest pain or palpitations Respiratory: No reports of shortness of breath or cough GI: No reports of nausea, no reports of vomiting, no diarrhea : No reports of dysuria or retention Neurovascular: reports of generalized left knee pain All medications have been reviewed PHYSICAL EXAMINATION: GENERAL: The patient is alert and oriented x4, Well developed, well nourished. Obese, elderly appearing HEENT: Pupils are round and equally reacting to light. EOMI. no scleral icterus. No conjunctival pallor. Normocephalic, atraumatic. No pharyngeal erythema. No thyromegaly. CARDIOVASCULAR: S1 and S2 muffled PULMONARY: diminished breath sounds bilaterally with no wheezing or rhonchi noted. ABDOMEN: soft. Nontender on exam. obese. non-distended, normoactive bowel mary nds. No palpable organomegaly. MUSCULOSKELETAL: Mild left knee joint swelling, no deformity. EXTREMITIES: No cyanosis, clubbing, or pedal edema. NEUROLOGICAL: Gross neurological examination did not reveal any focal deficits. Diffuse weakness SKIN: No rashes. Assessment: Possible acute bilateral pneumonia, left more than right History of recent deep vein thrombosis of the left leg as well as patellar fracture with severe pain and gait dysfunction history of coronary artery disease History of pulmonary embolism Obesity with a BMI 39.3 GI prophylaxis DVT prophylaxis Full code Plan: Patient is being followed by pulmonary along with infectious disease and maintained on antibiotics and will continue. Patient did have a chest CT with no acute findings noted. Patient did have intermittent low-grade temps although Tmax of [address] abdomen pelvis is ordered and pending per infectious disease Encourage incentive spirometer use at least 10 times every hour while awake Elevate left lower extremity while at rest. Imaging performed of the left knee shows a small effusion and patient will be following up with his primary orthopedic in the outpatient setting Patient to follow-up with orthopedics outpatient regarding left knee with recent left patellar fracture Continue anticoagulation Encourage increase activity as tolerated including sitting up in the chair more frequently Will follow-up on repeat labs and await CT report Monitor for any fevers and would recommend being afebrile for 24 hours prior to discharge. Patient is on room air maintaining oxygen saturations above 90%. Will discuss with infectious disease and pulmonary in the next 24 hours regarding possible discharge planning Patient and family are extremely keen on going home. Due to multiple complex medical issues, overall prognosis guarded The impression and plan of care has been dictated by Vanessa Kolb, nurse practitioner as directed. Dr. Stone MD I have performed a history and examination and MDM of this patient, discussed the same with the dictator, and agree with the dictator's assessment and plan as written ,documented as a scribe. Based on total visit time, I have performed more than 50% of the visit. Any additional findings or plans will be noted. Objective - Vital Signs Vital signs: Vital Signs Temp 102.1 F H 05/09/25 16:05 Pulse 82 05/09/25 13:58 Resp 18 05/09/25 13:58 BP 148/64 05/09/25 13:58 Pulse Ox 95 05/09/25 13:58 FiO2 Intake & Output 05/08/25 05/09/25 05/09/25 18:59 06:59 18:59 Other: # Voids 7 1 # Bowel Movements 1 - Labs CBC & Chem 7: 05/09/25 05:02 05/09/25 05:02 Labs: Abnormal Lab Results - Last 24 Hours (Table) 05/09/25 05/09/25 Range/Units 05:02 05:02 Monocytes # 1.47 H (0.20-1.00) X 10*3/uL Eosinophils # 0.02 L (0.04-0.35) X 10*3/uL ESR 62 H (0-20) mm/Hr Sodium 133 L (135-145) mmol/L Chloride 95 L (96-109) mmol/L Anion Gap 13.50 H (4.00-12.00) mmol/L Glucose 123 H (70-110) mg/dL Calcium 8.3 L (8.7-10.3) mg/dL C-Reactive Protein 2.90 H (0.00-0.80) mg/dL Microbiology - Last 24 Hours (Table) 05/07/25 19:01 Blood Culture - Preliminary Blood
[2025-05-10] MEDS ORDERED: VANCOMYCIN IV PER PHARMACY 1 EACH MISC MISCELLANE PRN (09:56)
[2025-05-10 10:00] LABS: Basophils # (A) 0.06 X 10*3/uL (0.00-0.10); Basophils % (A) 0.8 %; Eosinophils # (A) 0.04 X 10*3/uL (0.04-0.35); Eosinophils % (A) 0.6 %; HCT 37.5 % (39.6-50.0); HGB 12.0 g/dL (13.0-17.0); Immature Grans, Automated 0.10 %; Lymphocytes # (A) 1.44 X 10*3/uL (0.90-5.00); Lymphocytes % (A) 20.2 %; MCH 29.1 pg (27.0-32.0); MCHC 32.0 g/dL (32.0-37.0); MCV 90.8 FL (80.0-97.0); Monocytes # (A) 1.28 X 10*3/uL (0.20-1.00); Monocytes % (A) 18.0 %; NRBC Per 100 WBC 0 X 10*3/uL (0.00-0.01); Neutrophils # (A) 4.29 X 10*3/uL (1.80-7.70); Neutrophils % (A) 60.3 %; Platelet Count 217 X 10*3/uL (140-440); RBC 4.13 X 10*6/uL (4.40-5.60); RDW 13.6 % (11.5-14.5); WBC 7.12 X 10*3/uL (4.50-10.00)
[2025-05-10 10:52] LABS: ALT 90 U/L (10-49); AST 72 U/L (14-35); Albumin 3.4 g/dL (3.8-4.9); Albumin/Globulin Ratio 1.48 Ratio (1.60-3.17); Alkaline Phosphatase 60 U/L (41-126); Anion Gap 12.70 mmol/L (4.00-12.00); BUN/Creat Ratio 17.80 Ratio (12.00-20.00); Blood Urea Nitrogen 17.8 mg/dL (9.0-27.0); Calcium 8.1 mg/dL (8.7-10.3); Carbon Dioxide 24.3 mmol/L (21.6-31.8); Chloride 94 mmol/L (96-109); Globulin 2.3 g/dL (1.6-3.3); Glucose 105 mg/dL (70-110); Potassium 4.2 mmol/L (3.5-5.5); Sodium 131 mmol/L (135-145); Total Protein 5.7 g/dL (6.2-8.2)
[2025-05-10] MEDS: PIPERACILLIN-TAZOBACTAM 3.375 GM in SODIUM CHLORIDE 0.9% 100 ML IVPB SCH (12:01)
[2025-05-10] MEDS: VANCOMYCIN 2,500 MG in SODIUM CHLORIDE 0.9% 500 ML 500 ML IVPB ONE (12:01)
--- NOTE | 2025-05-10 16:10 | P.PN ---
Subjective Progress Note Date: 05/10/25 Principal diagnosis: Reason for follow-up is fever patient is a 74-year-old male with a past medical history significant for Coronary Artery Disease (CAD), Deep Vein Thrombosis (DVT), GERD/Reflux, Hypertension, Pulmonary Embolus (PE), Thyroid Disorder, was brought into the hospital concern for patient having mental status changes patient also have a fever found this consultation. On today's evaluation that is 05/10/2025, patient did have a temperature of 102.2 F this morning and temperature of 100.6 this afternoon patient denies having any rigors or chills no headache no chest pain shortness of breath or cough no abdominal pain no diarrhea mention feeling better. Patient white count is 7.12, creatinine is 1.0 blood cultures so far pending Objective - Vital Signs Vital signs: Vital Signs Temp 99.6 F 05/10/25 09:37 Pulse 70 05/10/25 07:22 Resp 20 05/10/25 07:22 BP 127/69 05/10/25 07:22 Pulse Ox 95 05/10/25 07:22 FiO2 Intake & Output 05/09/25 05/10/25 05/10/25 18:59 06:59 18:59 Intake Total 540 Balance 540 Intake: Oral 540 Other: Voiding Method Toilet # Voids 3 3 - Exam GENERAL DESCRIPTION: An elderly male up in the chair in no distress RESPIRATORY SYSTEM: Unlabored breathing , decreased breath sounds at bases HEART: S1 S2 regular rate and rhythm , ABDOMEN: Soft , no tenderness EXTREMITIES: Left knee with minimal swelling no redness minimal warmth - Labs CBC & Chem 7: 05/10/25 04:50 05/10/25 04:50 Labs: Abnormal Lab Results - Last 24 Hours (Table) 05/09/25 Range/Units 05:02 ESR 62 H (0-20) mm/Hr Microbiology - Last 24 Hours (Table) 05/07/25 19:01 Blood Culture - Preliminary Blood Assessment and Plan (1) Fever Current Visit: Yes Status: Acute Code(s): R50.9 - FEVER, UNSPECIFIED SNOMED Code(s): 179085934 (2) Cellulitis of left knee Current Visit: Yes Status: Acute Code(s): L03.116 - CELLULITIS OF LEFT LOWER LIMB SNOMED Code(s): 37176227608275045 Plan: 1patient presented to hospital with weakness mental status changes in this patient also have a fever recent history of a injury to the left knee And now the patient to have pain to the left knee area tenderness swelling and warmth to the left knee area concerning for left knee cellulitis clinically doubt pneumonia as no significant respiratory symptoms chest x-ray has been negative procalcitonin was normal urine has been negative and no other obvious focus of infection clinically 2-x-ray of the knee shows minimal effusion no bony changes CRP mildly elevated, P did have CT abdominal pelvis did not show any acute abnormality 3-will place fever consulted likely for the left knee cellulitis and possible knee infection with the patient benefit from aspiration of the left knee we will empirically add vancomycin blood culture has been repeated multiple question concern answered no need for Zosyn which will be discontinued Dictation was produced using [employer] dictation software. please excuse any grammatical, word or spelling errors. Time with Patient: Less than 30
[2025-05-11 03:36] LABS: African American GFR (CKD) >90 (>60 ml/min/1.73 sqM); Anion Gap 9 mmol/L; Blood Urea Nitrogen 21 mg/dL (9-20); Calcium 7.9 mg/dL (8.4-10.2); Carbon Dioxide 26 mmol/L (22-30); Chloride 95 mmol/L (98-107); Glucose 125 mg/dL (74-99); Non-African American GFR(CKD) 81 (>60 ml/min/1.73 sqM); Potassium 3.8 mmol/L (3.5-5.1); Sodium 130 mmol/L (137-145)
--- NOTE | 2025-05-11 03:37 | PN ---
PROGRESS NOTE DATE OF SERVICE: 05/10/2025 SUBJECTIVE: This is a 74-year-old gentleman admitted with fever and possible aspiration pneumonia. He has continued to have intermittent fever at this time. The patient is keen on going home, but as mentioned earlier fever is recurring at this time. The patient had chest x-ray lesions. The abdominal and pelvis CT scan has been already ordered, which I reviewed personally showed no acute abnormality. The cultures are negative so far. Multiple consultants are following the patient closely. PAST MEDICAL HISTORY: Reviewed. REVIEW OF SYSTEMS: A 14-point review is negative as mentioned earlier. CURRENT MEDICATIONS: Reviewed. PHYSICAL EXAMINATION: VITAL SIGNS: Pulse is 77, blood pressure 108/52, temperature 100.6. HEENT: Conjunctivae normal. NECK: No JVD. CARDIOVASCULAR: S1, S2. RESPIRATIONS: Crackles in the bases. ABDOMEN: Soft and nontender. LEGS: No edema. NERVOUS SYSTEM: Nonfocal. LABS: Reviewed. ASSESSMENT: 1. Fever with possible aspiration pneumonia, rule out sepsis. 2. History of recent DVT of the left leg as well as patella fracture and severe pain and gait dysfunction. 3. History of CAD. 4. History of pulmonary embolism. 5. Obesity with body mass index of 39.3. 6. GI prophylaxis. 7. DVT prophylaxis. 8. Full code. RECOMMENDATIONS: Recommend to continue current symptomatic treatment. Recommend to change the antibiotics to Zosyn. Continue with vanco. Continue repeat cultures. Repeat labs in the morning. Closely follow with multiple consultants. Prognosis extremely guarded because of multiple complex medical issues, and further recommendations to follow. Discussed with the patient. MMODL / IJN: [id number] /
[2025-05-11] MEDS: VANCOMYCIN 2,250 MG in SODIUM CHLORIDE 0.9% 500 ML 500 ML IVPB SCH (05:55)
[2025-05-11 09:42] LABS: Basophils # (A) 0.07 X 10*3/uL (0.00-0.10); Basophils % (A) 1.0 %; Eosinophils # (A) 0.14 X 10*3/uL (0.04-0.35); Eosinophils % (A) 2.0 %; HCT 36.6 % (39.6-50.0); HGB 11.8 g/dL (13.0-17.0); Immature Grans, Automated 0.30 %; Lymphocytes # (A) 1.27 X 10*3/uL (0.90-5.00); Lymphocytes % (A) 18.0 %; MCH 29.1 pg (27.0-32.0); MCHC 32.2 g/dL (32.0-37.0); MCV 90.1 FL (80.0-97.0); Monocytes # (A) 1.21 X 10*3/uL (0.20-1.00); Monocytes % (A) 17.2 %; NRBC Per 100 WBC 0 X 10*3/uL (0.00-0.01); Neutrophils # (A) 4.34 X 10*3/uL (1.80-7.70); Neutrophils % (A) 61.5 %; Platelet Count 211 X 10*3/uL (140-440); RBC 4.06 X 10*6/uL (4.40-5.60); RDW 13.7 % (11.5-14.5); WBC 7.05 X 10*3/uL (4.50-10.00)
--- NOTE | 2025-05-11 15:49 | P.PN ---
Subjective Progress Note Date: 05/11/25 Principal diagnosis: Reason for follow-up is fever patient is a 74-year-old male with a past medical history significant for Coronary Artery Disease (CAD), Deep Vein Thrombosis (DVT), GERD/Reflux, Hypertension, Pulmonary Embolus (PE), Thyroid Disorder, was brought into the hospital concern for patient having mental status changes patient also have a fever found this consultation. On today's evaluation that is 05/11/2025, Patient did have improvement in his fever pattern with the last temperature of 99.7 F this afternoon patient noted feeling better breathing comfortably no chest pain shortness of breath or cough no nausea vomiting no abdominal pain or diarrhea. The patient white count 7.05, creatinine 0.92 blood cultures currently pending Objective - Vital Signs Vital signs: Vital Signs Temp 99.9 F H 05/11/25 07:52 Pulse 64 05/11/25 07:52 Resp 16 05/11/25 07:52 BP 147/80 05/11/25 07:52 Pulse Ox 97 05/11/25 07:52 FiO2 Intake & Output 05/10/25 05/11/25 05/11/25 18:59 06:59 18:59 Other: Voiding Method Toilet Toilet # Voids 3 1 - Exam GENERAL DESCRIPTION: An elderly male up in the chair in no distress RESPIRATORY SYSTEM: Unlabored breathing , decreased breath sounds at bases HEART: S1 S2 regular rate and rhythm , ABDOMEN: Soft , no tenderness EXTREMITIES: Left knee with minimal swelling no redness minimal warmth - Labs CBC & Chem 7: 05/11/25 02:28 05/11/25 02:28 Labs: Abnormal Lab Results - Last 24 Hours (Table) 05/11/25 05/11/25 Range/Units 02:28 02:28 RBC 4.06 L (4.40-5.60) X 10*6/uL Hgb 11.8 L (13.0-17.0) g/dL Hct 36.6 L (39.6-50.0) % Monocytes # 1.21 H (0.20-1.00) X 10*3/uL Sodium 130 L (137-145) mmol/L Chloride 95 L (98-107) mmol/L BUN 21 H (9-20) mg/dL Glucose 125 H (74-99) mg/dL Calcium 7.9 L (8.4-10.2) mg/dL Microbiology - Last 24 Hours (Table) 05/07/25 19:01 Blood Culture - Preliminary Blood Assessment and Plan (1) Fever Current Visit: Yes Status: Acute Code(s): R50.9 - FEVER, UNSPECIFIED SNOMED Code(s): 526054590 (2) Cellulitis of left knee Current Visit: Yes Status: Acute Code(s): L03.116 - CELLULITIS OF LEFT LOWER LIMB SNOMED Code(s): 14125559068827824 Plan: 1patient presented to hospital with weakness mental status changes in this patient also have a fever recent history of a injury to the left knee And now the patient to have pain to the left knee area tenderness swelling and warmth to the left knee area concerning for left knee cellulitis clinically doubt pneumonia as no significant respiratory symptoms chest x-ray has been negative procalcitonin was normal urine has been negative and no other obvious focus of infection clinically 2-x-ray of the knee shows minimal effusion no bony changes CRP mildly elevated, patient did have CT abdominal pelvis did not show any acute abnormality 3-patient did have improvement in fever pattern with addition of vancomycin yesterday still concerning for left knee infection and would benefit from Ortho evaluation for aspiration of the knee family seem to be agreeable to wait Dictation was produced using [employer] dictation software. please excuse any gram matical, word or spelling errors. Time with Patient: Less than 30
[2025-05-11 17:16] LABS: RSV Not Detected (Not Detectd)
--- NOTE | 2025-05-12 00:09 | XR ---
EXAM: XR Chest, 1 View CLINICAL HISTORY: ITS.REASON XR Reason: pneumonia TECHNIQUE: Frontal view of the chest. COMPARISON: Chest x-ray of 05/08/2025. FINDINGS: Lungs: Minimal scarring and subsegmental atelectasis at the left lung base. Pleural space: Unremarkable. No pneumothorax. Heart: Heart is normal in size. No cardiomegaly. Mediastinum: Unremarkable. Normal mediastinal contour. Bones/joints: Sternotomy wires are noted in place. Osseous structures are unremarkable. No acute fracture. Other findings: Hypoaeration. IMPRESSION: 1. Sternotomy wires are noted in place. 2. Probable subsegmental atelectasis at the left lung base.
[2025-05-12 03:36] LABS: ALT 110 U/L (4-49); AST 62 U/L (17-59); African American GFR (CKD) >90 (>60 ml/min/1.73 sqM); Albumin 3.0 g/dL (3.5-5.0); Albumin/Globulin Ratio 1.2; Alkaline Phosphatase 59 U/L (38-126); Anion Gap 6 mmol/L; Blood Urea Nitrogen 20 mg/dL (9-20); Calcium 8.3 mg/dL (8.4-10.2); Carbon Dioxide 29 mmol/L (22-30); Chloride 97 mmol/L (98-107); Globulin 2.5 g/dL; Glucose 112 mg/dL (74-99); Non-African American GFR(CKD) 89 (>60 ml/min/1.73 sqM); Potassium 3.8 mmol/L (3.5-5.1); Sodium 132 mmol/L (137-145); Total Protein 5.5 g/dL (6.3-8.2)
--- NOTE | 2025-05-12 04:13 | PN ---
PROGRESS NOTE DATE OF SERVICE: 05/11/2025 SUBJECTIVE: This is a 74-year-old gentleman admitted with fever and possible aspiration pneumonia, is being closely monitored. The patient had a fever last night. Antibiotics initiated and unchanged. OBJECTIVE: VITAL SIGNS: Pulse is 77, blood pressure 153/60, respirations 16. CHEST: Few scattered rhonchi. ABDOMEN: Soft. NERVOUS SYSTEM: Nonfocal. LABORATORY DATA: Reviewed. ASSESSMENT: 1. Fever with possible aspiration pneumonia, rule out sepsis. 2. History of recent deep vein thrombosis of the left leg as well as patellar fracture with severe pain and gait dysfunction. 3. History of coronary artery disease. 4. History of pulmonary embolism. 5. Obesity with body mass index of 39.3. 6. GI prophylaxis. 7. DVT prophylaxis. 8. Full code. RECOMMENDATIONS AND DISCUSSION: Recommend to continue current symptomatic treatment. Repeat labs. Continue with empiric antibiotics. Otherwise, the ESR and CRP are elevated. Guarded prognosis. Further recommendations to follow. MMODL / IJN: [id number] /
[2025-05-12 08:02] LABS: Basophils # (A) 0.05 X 10*3/uL (0.00-0.10); Basophils % (A) 0.6 %; Eosinophils # (A) 0.17 X 10*3/uL (0.04-0.35); Eosinophils % (A) 2.1 %; HCT 36.2 % (39.6-50.0); HGB 11.6 g/dL (13.0-17.0); Immature Grans, Automated 0.20 %; Lymphocytes # (A) 1.77 X 10*3/uL (0.90-5.00); Lymphocytes % (A) 21.4 %; MCH 29.4 pg (27.0-32.0); MCHC 32.0 g/dL (32.0-37.0); MCV 91.9 FL (80.0-97.0); Monocytes # (A) 1.10 X 10*3/uL (0.20-1.00); Monocytes % (A) 13.3 %; NRBC Per 100 WBC 0 X 10*3/uL (0.00-0.01); Neutrophils # (A) 5.16 X 10*3/uL (1.80-7.70); Neutrophils % (A) 62.4 %; Platelet Count 210 X 10*3/uL (140-440); RBC 3.94 X 10*6/uL (4.40-5.60); RDW 13.8 % (11.5-14.5); WBC 8.27 X 10*3/uL (4.50-10.00)
[2025-05-12] MEDS: CEFEPIME 2 GM in SODIUM CHLORIDE 0.9% 100 ML IVPB SCH (18:28)
--- NOTE | 2025-05-12 22:27 | P.PN ---
Subjective Progress Note Date: 05/12/25 Principal diagnosis: Reason for follow-up is fever patient is a 74-year-old male with a past medical history significant for Coronary Artery Disease (CAD), Deep Vein Thrombosis (DVT), GERD/Reflux, Hypertension, Pulmonary Embolus (PE), Thyroid Disorder, was brought into the hospital concern for patient having mental status changes patient also have a fever found this consultation. On today's evaluation that is 05/12/2025, patient was afebrile this morning however he did spike another fever of 101.3 F this afternoon patient denies having any chest pain shortness of breath or cough no nausea vomiting no abdominal pain diarrhea. Patient white count is 8.27, creatinine 0.77 he did have a sed rate of 62 CRP is 2.90 blood culture has been negative Objective - Vital Signs Vital signs: Vital Signs Temp 98.0 F 05/12/25 08:02 Pulse 69 05/12/25 08:02 Resp 17 05/12/25 08:02 BP 122/67 05/12/25 08:02 Pulse Ox 97 05/12/25 08:02 FiO2 Intake & Output 05/11/25 05/12/25 05/12/25 18:59 06:59 18:59 Intake Total 120 Balance 120 Intake: Oral 120 Other: Voiding Method Toilet Toilet Toilet # Voids 4 1 - Exam GENERAL DESCRIPTION: An elderly male up in the chair in no distress RESPIRATORY SYSTEM: Unlabored breathing , decreased breath sounds at bases HEART: S1 S2 regular rate and rhythm , ABDOMEN: Soft , no tenderness EXTREMITIES: Left knee with minimal swelling no redness minimal warmth - Labs CBC & Chem 7: 05/12/25 02:26 05/12/25 02:26 Labs: Abnormal Lab Results - Last 24 Hours (Table) 05/12/25 05/12/25 Range/Units 02:26 02:26 RBC 3.94 L (4.40-5.60) X 10*6/uL Hgb 11.6 L (13.0-17.0) g/dL Hct 36.2 L (39.6-50.0) % Monocytes # 1.10 H (0.20-1.00) X 10*3/uL Sodium 132 L (137-145) mmol/L Chloride 97 L (98-107) mmol/L Glucose 112 H (74-99) mg/dL Calcium 8.3 L (8.4-10.2) mg/dL AST 62 H (17-59) U/L ALT 110 H (4-49) U/L Total Protein 5.5 L (6.3-8.2) g/dL Albumin 3.0 L (3.5-5.0) g/dL Microbiology - Last 24 Hours (Table) 05/10/25 10:03 Blood Culture - Preliminary Blood Assessment and Plan (1) Fever Current Visit: Yes Status: Acute Code(s): R50.9 - FEVER, UNSPECIFIED SNOMED Code(s): 557083586 (2) Cellulitis of left knee Current Visit: Yes Status: Acute Code(s): L03.116 - CELLULITIS OF LEFT LOWER LIMB SNOMED Code(s): 83588486669241178 Plan: 1patient presented to hospital with weakness mental status changes in this patient also have a fever recent history of a injury to the left knee And now the patient to have pain to the left knee area tenderness swelling and warmth to the left knee area concerning for left knee cellulitis clinically doubt pneumonia as no significant respiratory symptoms chest x-ray has been negative procalcitonin was normal urine has been negative and no other obvious focus of infection clinically 2-x-ray of the knee shows minimal effusion no bony changes CRP mildly elevated, patient did have CT abdominal pelvis did not show any acute abnormality 3-patient did have persistent fever which is slightly concerning with extensive workup no other obvious focus of infection suspicious for possible left knee septic arthritis discussed with the admitting team for transfer to [place] to be evaluated by his orthopedic surgeon continue with the vancomycin will add cefepime Dictation was produced using [employer] dictation software. please excuse any grammatical, word or spelling errors. Time with Patient: Less than 30
--- NOTE | 2025-05-12 23:45 | P.PN ---
Subjective Progress Note Date: 05/12/25 This is a 74-year-old male who was recently admitted with change in mental status with concerns of possible pneumonia, possibly aspiration being followed by pulmonary along with infectious disease. Patient did have a few isolated low-grade temps and underwent CT chest showing no acute process. Patient was initially scheduled for discharge although developed a 102 temp this afternoon and CT abdomen pelvis is ordered and pending per infectious disease. Patient was given incentive spirometer and encouraged continued incentive spirometer use at least 10 times every hour while awake. Patient is empirically on antibiotics in the form of ceftriaxone and Zithromax being completed. Pulmonary following as well will be continued on current regimen. Patient is currently on room air and wants to go home. Patient reports is feeling well with no chest pain, shortness of breath, or palpitations. Patient is having some mild left knee pain and recently had left patellar fracture. Mild swelling noted with a small effusion on imaging and will be following with his orthopedics outpatient. 05/12/2025 Patient is seen in follow-up today initially was afebrile morning although early this afternoon patient spiked a fever of 102. Patient has been intermittently having fevers daily and transition antibiotics per ID to vancomycin. Patient reports to feeling well and would like to go home. Patient does have left knee swelling noted and attempted to transfer to [facility] with Dr. Curry of orthopedics who is seeing him outpatient. Declined as there are personal medical issues with Dr. Curry and will not be available for at least 4 days. Other facilities declined as well. Will monitor overnight for any further fevers and discussed with infectious disease regarding discharge planning. Will consult orthopedics and appreciate input and recommendations in the event they are able to perform a knee aspiration and sent for cultures here. Review of systems: Constitutional: No reports of fatigue, having intermittent fever, denies chills Cardiovascular: No reports of chest pain or palpitations Respiratory: No reports of shortness of breath or cough GI: No reports of nausea, no reports of vomiting, no diarrhea : No reports of dysuria or retention, reports not sleeping much Neurovascular: reports of generalized left knee pain All medications have been reviewed PHYSICAL EXAMINATION: GENERAL: The patient is alert and oriented x4, Well developed, well nourished. Obese, elderly appearing HEENT: Pupils are round and equally reacting to light. EOMI. no scleral icterus. No conjunctival pallor. Normocephalic, atraumatic. No pharyngeal erythema. No thyromegaly. CARDIOVASCULAR: S1 and S2 muffled PULMONARY: diminished breath sounds bilaterally with no wheezing or rhonchi noted. Mildly tachypneic ABDOMEN: soft. Nontender on exam. obese. non-distended, normoactive bowel sounds. No palpable organomegaly. MUSCULOSKELETAL: Mild left knee joint swelling, no deformity. EXTREMITIES: No cyanosis, clubbing, or pedal edema. NEUROLOGICAL: Gross neurological examination did not reveal any focal deficits. Diffuse weakness SKIN: No rashes. Assessment: Possible acute bilateral pneumonia, left more than right History of recent deep vein thrombosis of the left leg as well as patellar fracture with severe pain and gait dysfunction Recurrent intermittent fevers unknown source, possibly secondary to left knee effusion with hematoma present history of coronary artery disease History of pulmonary embolism Obesity with a BMI 39.3 GI prophylaxis DVT prophylaxis Full code Plan: Patient is being followed by pulmonary along with infectious disease and maint ained on antibiotics and will continue. Patient did have a chest CT with no acute findings noted. Patient did have intermittent low-grade temps although Tmax of [address] abdomen pelvis is ordered and pending per infectious disease Encourage incentive spirometer use at least 10 times every hour while awake Elevate left lower extremity while at rest. Imaging performed of the left knee shows a small effusion and patient will be following up with his primary orthopedic in the outpatient setting Patient to follow-up with orthopedics outpatient regarding left knee with recent left patellar fracture. Dr. Patricio Bar/[facility] is her primary care provider and is having personal medical issues unable to see the patient for at least 4 days if being transferred. Discussed with medicine team and [facility] and unable to accept the transfer. Recommend consulting on-call orthopedics at [facility] evaluation and possible knee aspiration. Patient has had extensive cardiac and cardiology workup recommend taking current medications and close outpatient follow-up. Continue anticoagulation Encourage increase activity as tolerated including sitting up in the chair more frequently Will follow-up on repeat labs and await CT report Patient and family are extremely keen on going home. Due to multiple complex medical issues, overall prognosis guarded The impression and plan of care has been dictated by Vanessa Kolb, nurse practitioner as directed. Dr. Stone MD I have performed a history and examination and MDM of this patient, discussed the same with the dictator, and agree with the dictator's assessment and plan as written ,documented as a scribe. Based on total visit time, I have performed more than 50% of the visit. Any additional findings or plans will be noted. Objective - Vital Signs Vital signs: Vital Signs Temp 99.4 F 05/12/25 19:46 Pulse 67 05/12/25 19:46 Resp 18 05/12/25 19:46 BP 147/78 05/12/25 19:46 Pulse Ox 96 05/12/25 19:46 FiO2 Intake & Output 05/12/25 05/12/25 05/13/25 06:59 18:59 06:59 Intake Total 1320 Balance 1320 Intake: Oral 1320 Other: Voiding Method Toilet Toilet # Voids 1 6 - Labs CBC & Chem 7: 05/12/25 02:26 05/12/25 02:26 Labs: Abnormal Lab Results - Last 24 Hours (Table) 05/12/25 05/12/25 Range/Units 02:26 02:26 RBC 3.94 L (4.40-5.60) X 10*6/uL Hgb 11.6 L (13.0-17.0) g/dL Hct 36.2 L (39.6-50.0) % Monocytes # 1.10 H (0.20-1.00) X 10*3/uL Sodium 132 L (137-145) mmol/L Chloride 97 L (98-107) mmol/L Glucose 112 H (74-99) mg/dL Calcium 8.3 L (8.4-10.2) mg/dL AST 62 H (17-59) U/L ALT 110 H (4-49) U/L Total Protein 5.5 L (6.3-8.2) g/dL Albumin 3.0 L (3.5-5.0) g/dL Microbiology - Last 24 Hours (Table) 05/10/25 10:03 Blood Culture - Preliminary Blood
[2025-05-13 04:02] LABS: ALT 117 U/L (4-49); AST 58 U/L (17-59); African American GFR (CKD) >90 (>60 ml/min/1.73 sqM); Albumin 3.0 g/dL (3.5-5.0); Albumin/Globulin Ratio 1.2; Alkaline Phosphatase 59 U/L (38-126); Anion Gap 6 mmol/L; Blood Urea Nitrogen 20 mg/dL (9-20); Calcium 8.1 mg/dL (8.4-10.2); Carbon Dioxide 29 mmol/L (22-30); Chloride 97 mmol/L (98-107); Globulin 2.5 g/dL; Glucose 117 mg/dL (74-99); Magnesium 2.0 mg/dL (1.6-2.3); Non-African American GFR(CKD) 90 (>60 ml/min/1.73 sqM); Potassium 4.1 mmol/L (3.5-5.1); Sodium 132 mmol/L (137-145); Total Protein 5.5 g/dL (6.3-8.2)
[2025-05-13 08:34] LABS: Basophils # (A) 0.06 X 10*3/uL (0.00-0.10); Basophils % (A) 0.7 %; Eosinophils # (A) 0.22 X 10*3/uL (0.04-0.35); Eosinophils % (A) 2.5 %; HCT 37.8 % (39.6-50.0); HGB 12.3 g/dL (13.0-17.0); Immature Grans, Automated 0.30 %; Lymphocytes # (A) 1.39 X 10*3/uL (0.90-5.00); Lymphocytes % (A) 15.9 %; MCH 29.9 pg (27.0-32.0); MCHC 32.5 g/dL (32.0-37.0); MCV 92.0 FL (80.0-97.0); Monocytes # (A) 0.95 X 10*3/uL (0.20-1.00); Monocytes % (A) 10.9 %; NRBC Per 100 WBC 0 X 10*3/uL (0.00-0.01); Neutrophils # (A) 6.10 X 10*3/uL (1.80-7.70); Neutrophils % (A) 69.7 %; Platelet Count 204 X 10*3/uL (140-440); RBC 4.11 X 10*6/uL (4.40-5.60); RDW 13.8 % (11.5-14.5); WBC 8.75 X 10*3/uL (4.50-10.00)
--- NOTE | 2025-05-13 12:52 | CA ---
Transthoracic Echo Report Name: David Castillo Age: 74 Gender: M : 1950 Exam Date: 05/13/2025 09:29 Exam Location: [facility] Ht (in): 72 Wt (lb): 290 Ordering Physician: Ruth Ritter MD Attending/Referring Phys: Cytotechnologist/Cytology Supervisor Calvin Marcos RDCS Procedure CPT: Indications: fever Cardiac Hx: Technical Quality: Very technically difficult study Contrast 1: Total Dose (mL): Contrast 2: Total Dose (mL): MEASUREMENTS (Male / Female) Normal Values 2D ECHO LV Diastolic Diameter PLAX 5.1 cm 4.2 - 5.9 / 3.9 - 5.3 cm LV Systolic Diameter PLAX 3.2 cm IVS Diastolic Thickness 1.5 cm 0.6 - 1.0 / 0.6 - 0.9 cm LVPW Diastolic Thickness 1.2 cm 0.6 - 1.0 / 0.6 - 0.9 cm LV Relative Wall Thickness 0.5 RV Internal Dim ED PLAX 4.1 cm LVOT Diameter 1.9 cm Aortic Root Diameter 2.1 cm LA Systolic Diameter LX 4.1 cm 3.0 - 4.0 / 2.7 - 3.8 cm LV Diastolic Volume MOD BP 98.9 cm??? 67 - 155 / 56 - 104 cm??? LV Systolic Volume MOD BP 40.6 cm??? 22 - 58 / 19 - 49 cm??? LV Ejection Fraction MOD BP 59.0 % >= 55 % LV Cardiac Index MOD BP 1304.2 cm???/min???m??? LV Diastolic Volume MOD 4C 86.6 cm??? LV Systolic Volume MOD 4C 37.4 cm??? LV Ejection Fraction MOD 4C 56.8 % LV Cardiac Index MOD 4C 1098.8 cm???/min???m??? LV Diastolic Length 4C 7.2 cm LV Systolic Length 4C 6.8 cm LV Diastolic Volume MOD 2C 101.6 cm??? LV Systolic Volume MOD 2C 38.5 cm??? LV Ejection Fraction MOD 2C 62.1 % LV Cardiac Index MOD 2C 1409.8 cm???/min???m??? LV Diastolic Length 2C 8.3 cm LV Systolic Length 2C 5.8 cm Ascending Aorta Diameter 2.0 cm DOPPLER AV Peak Velocity 130.0 cm/s AV Peak Gradient 6.8 mmHg AV Mean Velocity 89.2 cm/s AV Mean Gradient 3.6 mmHg AV Velocity Time Integral 26.7 cm LVOT Peak Velocity 82.9 cm/s LVOT Peak Gradient 2.8 mmHg LVOT Velocity Time Integral 17.6 cm LVOT Stroke Volume 48.6 cm??? LVOT Stroke Volume Index 19.5 ml/m??? LVOT Cardiac Index 1086.2 cm???/min???m??? AV Area Cont Eq vti 1.8 cm??? AV Area Cont Eq pk 1.8 cm??? MV Peak Velocity 84.1 cm/s MV Peak Gradient 2.8 mmHg MV Mean Velocity 43.4 cm/s MV Mean Gradient 0.9 mmHg MV Velocity Time Integral 29.4 cm MV Area PHT 3.5 cm??? Mitral E Point Velocity 73.8 cm/s Mitral A Point Velocity 76.2 cm/s Mitral E to A Ratio 1.0 MV Deceleration Time 213.8 ms TR Peak Velocity 230.7 cm/s TR Peak Gradient 21.3 mmHg FINDINGS Left Ventricle Left ventricular ejection fraction is estimated at 55-60 %. Normal left ventricular systolic function with no obvious regional wall motion abnormalities. Left ventricular cavity size normal.Moderately increased left ventricular wall thickness. Right Ventricle Right ventricle not well visualized. Right Atrium Right atrium not well visualized. Left Atrium Normal left atrial size. Mitral Valve No mitral stenosis. Mild mitral regurgitation.mitral annular calcification. Aortic Valve Normally functioning prosthetic aortic valve without stenosis with a peak velocity of 1.3 m/s, peak gradient 6.8 mmHg, mean gradient 3.6 mmHg. No paravalvular aortic regurgitation. No central aortic regurgitation. Tricuspid Valve Tricuspid valve not well visualized. Trace tricuspid regurgitation. Pulmonic Valve Pulmonic valve not well visualized. Trace pulmonic regurgitation. Pericardium Normal pericardium. No pericardial or pleural effusion. Aorta Normal size aortic root and proximal ascending aorta. CONCLUSIONS Technically difficult study. Definity ECHO contrast used for improved visualization of the endocardial borders (inadequate visualization of two or more contiguous segments). Normal left ventricular size and systolic function TAVR aortic valve with a mean gradient of 3.6 mmHg and no evidence of regurgitation Mild mitral regurgitation Previewed by: Dr. Curt Esquivel MD (Electronically Signed) Final Date: 13 May 2025 12:51
--- NOTE | 2025-05-13 14:29 | XR ---
EXAMINATION TYPE: XR chest 1V DATE OF EXAM: 05/13/2025 2:25 PM COMPARISON: Chest radiographs from 05/08/2025, CT chest 05/08/2025 TECHNIQUE: XR chest 1V Portable AP radiograph of the chest. CLINICAL INDICATION:Male, 74 years old with history of shortness of breath; FINDINGS: Lungs/Pleura: There is no evidence of pleural effusion, focal consolidation, or pneumothorax. Pulmonary vascularity: Unremarkable. Heart/mediastinum: Cardiomediastinal silhouette is stable. Endovascular aortic valve replacement. Musculoskeletal: No acute osseous pathology. Midline sternotomy wires are noted and stable. There is again fracture of the uppermost sternal wire with fragment to the right. IMPRESSION: No acute cardiopulmonary disease/process. [facility], , 05/13/2025 2:27 PM
--- NOTE | 2025-05-13 16:07 | P.CNOR ---
History of Present Illness - [facility] Consult date: 05/13/25 Consult reason: joint pain (Left knee pain) History of present illness: Patient is a 74-year-old male who was brought to [facility] on 05/07/2025 with regards to altered mental status. Apparently the patient had taken some excess pain medication the night before due to increasing pain in his left knee. Patient's felt that patient was very out of it the next day and was brought into the hospital for further evaluation. Since being in the hospital, he has been followed by multiple medical specialties and had multiple imaging and lab test. Patient does have a very extensive cardiac and pulmonary history. Concern at this time is for the fever of unknown origin along with an initial elevated CRP and sed rate along with white blood cell count on admission. Patient has a relatively detailed history with regards to his left knee. He has a history of bilateral total knee arthroplasties done in 2007 and 2008. In February 2025 patient was noted to have a fracture involving the patella on the left knee, he had been evaluated by the original operating surgeon, he was placed in a brace for an extended period of time and had been doing physical therapy for the last month or so. Patient and both stated that over the last week or so he has had a little bit more swelling on that left knee and mild discomfort with flexing. There is been no changes to the incision, this to include erythe ma. Patient has had noted no significant pain since being in the hospital with regards to extension and flexion, along with weightbearing. Our group had been consulted for further workup for possible septic arthropathy. Patient was evaluated today resting in his hospital chair, he seems somewhat short of breath and wheezing on exam. Patient's and daughter were also present. Patient again states he is having no pain in the knee, he is able to demonstrate good passive along with active range of motion with flexion and extension, he was also visualized ambulating to the restroom not requiring any assistive devices for ambulation. Patient has no other orthopedic complaints at this time. Attempt was made to have patient transferred to [facility] for further evaluation by his operative surgeon, apparently that physician is out on medical leave at this time. Review of Systems Constitutional: Reports as per [facility] Past Medical History Past Medical History: Coronary Artery Disease (CAD), Deep Vein Thrombosis (DVT), GERD/Reflux, Hypertension, Pulmonary Embolus (PE), Thyroid Disorder Additional Past Medical History / Comment(s): shortness of breath with exertion History of Any Multi-Drug Resistant Organisms: None Reported Past Surgical History: Back Surgery, Cholecystectomy, Hernia Repair, Joint Replacement, Orthopedic Surgery Additional Past Surgical History / Comment(s): aortic valve replacement, aortic root repair, nurys knee replacement,rt shoulder rotator cuff , RAMANA-04/15/19, replacement of the replaced aortic valve. left patella fracture Past Anesthesia/Blood Transfusion Reactions: No Reported Reaction Additional Past Anesthesia/Blood Transfusion Reaction / Comm: headache after having orthopedic surgery Past Psychological History: No Psychological Hx Reported Smoking Status: Never smoker Past Alcohol Use History: None Reported Past Drug Use History: None Reported - Past Family History Mother Family Medical History: No Reported History Father Family Medical History: Cancer Additional Family Medical History / Comment(s): prostate cancer Medications and Allergies Home Medications Medication Instructions Recorded Confirmed Type Furosemide [Lasix] 40 mg PO DAILY 10/01/14 05/08/25 History Levothyroxine Sodium [Synthroid] 88 mcg PO DAILY 10/01/14 05/08/25 History Losartan Potassium [Cozaar] 100 mg PO DAILY 10/01/14 05/08/25 History Spironolactone [Aldactone] 12.5 mg PO DAILY 04/12/19 05/08/25 History Apixaban [Eliquis] 5 mg PO BID 05/08/25 05/08/25 History Ibuprofen [Motrin] 800 mg PO TID PRN 05/08/25 05/08/25 History Acetaminophen Tab [Tylenol] 650 mg PO Q6HR PRN tab 05/09/25 Rx Azithromycin [Zithromax] 500 mg PO HS 3 Days #3 tab 05/09/25 Rx Ipratropium/Albuter 20-100Mcg 1 puff INHALATION BID 30 Days #4 gm 05/09/25 Rx [Combivent Respimat 20-100Mcg Inhaler] cefuroxime axetiL [Ceftin] 500 mg PO BID 5 Days #10 tab 05/09/25 Rx Allergies Allergy/AdvReac Type Severity Reaction Status Date / Time No Known Allergies Allergy Verified 05/08/25 07:25 Physical Examination Left lower extremity: Incision over the anterior aspect of the knee is well-healed, there is no areas of erythema, there is no lesions, there are no areas of fluctuance appreciated. There is a very small amount of fluid present on the knee Passive and active range of motion with extension and flexion reproduce no pain along the joint line. Logroll maneuver reproduces no groin pain. Plantarflexion, dorsiflexion, EHL, FHL are intact. Patient is stable to both varus and valgus force, no obvious laxity present Calf is soft, no tenderness with palpation. The anterior and posterior compartments of the upper leg are both soft and compressible His dorsalis pedis pulses 2+, his sensory exam to light touch is intact throughout the extremity Results - Labs Labs: Abnormal Lab Results - Last 24 Hours (Table) 05/13/25 05/13/25 Range/Units 02:34 02:34 RBC 4.11 L (4.40-5.60) X 10*6/uL Hgb 12.3 L (13.0-17.0) g/dL Hct 37.8 L (39.6-50.0) % Sodium 132 L (137-145) mmol/L Chloride 97 L (98-107) mmol/L Glucose 117 H (74-99) mg/dL Calcium 8.1 L (8.4-10.2) mg/dL ALT 117 H (4-49) U/L Total Protein 5.5 L (6.3-8.2) g/dL Albumin 3.0 L (3.5-5.0) g/dL Microbiology - Last 24 Hours (Table) 05/07/25 19:01 Blood Culture - Final Blood 05/10/25 10:03 Blood Culture - Preliminary Blood H & H 05/07/25 05/08/25 05/09/25 Range/Units 19:01 04:23 05:02 Hgb 13.8 13.3 13.2 (13.0-17.0) g/dL Hct 41.3 41.6 40.4 (39.6-50.0) % 05/10/25 05/11/25 05/12/25 Range/Units 04:50 02:28 02:26 Hgb 12.0 L 11.8 L 11.6 L (13.0-17.0) g/dL Hct 37.5 L 36.6 L 36.2 L (39.6-50.0) % 05/13/25 Range/Units 02:34 Hgb 12.3 L (13.0-17.0) g/dL Hct 37.8 L (39.6-50.0) % Coagulation 05/07/25 Range/Units 19:01 INR 1.3 H (<1.2) Result Diagrams: 05/13/25 02:34 05/13/25 02:34 - Diagnostic results Knee x-ray: report reviewed, image reviewed (Reports and images of the left knee reviewed from 05/09/2025. Femoral and tibial components appear stable with no obvious lucencies. There is some cortical changes noted near the inferior pole of the patella.) Assessment and Plan Assessment: Fever of unknown origin Elevated white blood cell count improved and stable Elevated CRP and sed rate Previous left total knee arthroplasty History of left knee periprosthetic patellar fracture Other medical comorbidities Plan: I was able to discuss the case, this to include physical exam findings, imaging and lab studies my attending Dr. Miguel. No emergent orthopedic surgery is recommended at this time Clinically low concern for septic periprosthetic infection of the left knee. Patient has been on IV antibiotics over the last 48 hours, this to include Vanco and cefepime. White blood cell is back in normal limits, no further CRP or sed rate has been ordered since 05/09/2025 Attempt was made to contact patient's original operating surgeon, message was left. We are recommending patient follow-up with his operating surgeon surgeon for further evaluation and treatment. We will not be aspirating patient's left knee during his hospital stay this was discussed with patient and family at bedside. If remaining medical team feels aspiration would be the best option for his next step in treatment, we are recommending transfer to tertiary care facility, preferably the hospital where patients operating surgeon is available or has coverage. GI and DVT prophylaxis per primary medical service Weight-bear as tolerated, walker as needed Ice and elevation of the extremity for symptomatic relief Please contact our orthopedic service for any further questions regarding this patient Time with Patient: Less than 30
--- NOTE | 2025-05-13 16:18 | P.PN ---
Subjective Progress Note Date: 05/13/25 Principal diagnosis: Reason for follow-up is fever patient is a 74-year-old male with a past medical history significant for Coronary Artery Disease (CAD), Deep Vein Thrombosis (DVT), GERD/Reflux, Hypertension, Pulmonary Embolus (PE), Thyroid Disorder, was brought into the hospital concern for patient having mental status changes patient also have a fever found this consultation. On today's evaluation that is 05/13/2025, Patient did have a low-grade fever of 99.7 at 2 AM however the patient is afebrile since then patient was sleepy though arousable when asked specifically he said he was just taking rest has been mentioning some headache with the patient was not able to confirm no vomiting or diarrhea has been reported. Patient white count is 8.75 creatinine 0.75 blood culture has been negative Objective - Vital Signs Vital signs: Vital Signs Temp 98.8 F 05/13/25 13:01 Pulse 68 05/13/25 13:01 Resp 26 H 05/13/25 14:20 BP 152/74 05/13/25 13:01 Pulse Ox 99 05/13/25 14:20 FiO2 Intake & Output 05/12/25 05/13/25 05/13/25 18:59 06:59 18:59 Intake Total 1320 Balance 1320 Intake: Oral 1320 Other: Voiding Method Toilet # Voids 6 2 - Exam GENERAL DESCRIPTION: An elderly male up in the chair in no distress RESPIRATORY SYSTEM: Unlabored breathing , decreased breath sounds at bases HEART: S1 S2 regular rate and rhythm , ABDOMEN: Soft , no tenderness EXTREMITIES: Left knee with minimal swelling no redness minimal warmth - Labs CBC & Chem 7: 05/13/25 02:34 05/13/25 02:34 Labs: Abnormal Lab Results - Last 24 Hours (Table) 05/13/25 05/13/25 Range/Units 02:34 02:34 RBC 4.11 L (4.40-5.60) X 10*6/uL Hgb 12.3 L (13.0-17.0) g/dL Hct 37.8 L (39.6-50.0) % Sodium 132 L (137-145) mmol/L Chloride 97 L (98-107) mmol/L Glucose 117 H (74-99) mg/dL Calcium 8.1 L (8.4-10.2) mg/dL ALT 117 H (4-49) U/L Total Protein 5.5 L (6.3-8.2) g/dL Albumin 3.0 L (3.5-5.0) g/dL Microbiology - Last 24 Hours (Table) 05/07/25 19:01 Blood Culture - Final Blood 05/10/25 10:03 Blood Culture - Preliminary Blood Assessment and Plan (1) Fever Current Visit: Yes Status: Acute Code(s): R50.9 - FEVER, UNSPECIFIED SNOMED Code(s): 850728718 (2) Cellulitis of left knee Current Visit: Yes Status: Acute Code(s): L03.116 - CELLULITIS OF LEFT LOWER LIMB SNOMED Code(s): 80594247528159762 Plan: 1patient presented to hospital with weakness mental status changes in this patient also have a fever recent history of a injury to the left knee And now the patient to have pain to the left knee area tenderness swelling and warmth to the left knee area concerning for left knee cellulitis clinically doubt pneumonia as no significant respiratory symptoms chest x-ray has been negative procalcitonin was normal urine has been negative and no other obvious focus of infection clinically 2-x-ray of the knee shows minimal effusion no bony changes CRP mildly elevated, patient did have CT abdominal pelvis did not show any acute abnormality 3-patient did have persistent fever which is slightly concerning with extensive workup no other obvious focus of infection suspicious for possible left knee septic arthritis has been seen by orthopedics and recommending an aspiration of the left knee was discussed with admitting team for transfer to the operating surgeon, has been concerned about meningitis which was not his initial presentation with a headache or mental status changes though discussed with admitting team to get anesthesia for LP to rule it out Dictation was produced using [employer] dictation software. please excuse any grammatical, word or spelling errors. Time with Patient: Greater than 30
[2025-05-13] MEDS: IPRATROPIUM-ALBUTEROL 3 ML NEB INHALATION SCH (16:52)
[2025-05-13] MEDS: VANCOMYCIN TROUGH DUE 1 EACH MISC MISCELLANE ONE (21:05)
[2025-05-13] MEDS ORDERED: ACETAMINOPHEN IV (For NPO) 1,000 MG in EMPTY BAG 1 BAG IVPB PRN (22:00)
--- NOTE | 2025-05-13 22:06 | XR ---
EXAMINATION TYPE: XR chest 1V portable DATE OF EXAM: 05/13/2025 10:01 PM COMPARISON: Chest radiographs from CLINICAL INDICATION: Male, 74 years old with history of Elevated RR; [facility] TECHNIQUE: XR chest 1V portable Frontal view of the chest. FINDINGS: Lungs/Pleura: No pneumothorax. Small bilateral pleural effusions with likely minimal adjacent lower l obe compressive atelectasis. Pulmonary vascularity: Unremarkable. Heart/mediastinum: Cardiomegaly. Musculoskeletal: No acute osseous pathology. Redemonstration fracture sternal wire with portion again overlying the right lung apex on frontal view. Other findings: None IMPRESSION: Cardiomegaly and suspected small bilateral pleural effusions. [facility], , 05/13/2025 10:03 PM
[2025-05-13 22:12] LABS: ABG HCO3 30 mmol/L (21-25); ABG PCO2 42 mmHg (35-45); ABG PH 7.47 (7.35-7.45); ABG PO2 69 mmHg (83-108); ABG TCO2 32 mmol/L (19-24); Allen Test Performed? Yes
[2025-05-13] MEDS: PANTOPRAZOLE 40 MG/10 ML VIAL IVP SCH (23:24)
--- NOTE | 2025-05-13 23:39 | P.PN ---
Subjective Progress Note Date: 05/13/25 This is a 74-year-old male who was recently admitted with change in mental status with concerns of possible pneumonia, possibly aspiration being followed by pulmonary along with infectious disease. Patient did have a few isolated low-grade temps and underwent CT chest showing no acute process. Patient was initially scheduled for discharge although developed a 102 temp this afternoon and CT abdomen pelvis is ordered and pending per infectious disease. Patient was given incentive spirometer and encouraged continued incentive spirometer use at least 10 times every hour while awake. Patient is empirically on antibiotics in the form of ceftriaxone and Zithromax being completed. Pulmonary following as well will be continued on current regimen. Patient is currently on room air and wants to go home. Patient reports is feeling well with no chest pain, shortness of breath, or palpitations. Patient is having some mild left knee pain and recently had left patellar fracture. Mild swelling noted with a small effusion on imaging and will be following with his orthopedics outpatient. 05/12/2025 Patient is seen in follow-up today initially was afebrile morning although early this afternoon patient spiked a fever of 102. Patient has been intermittently having fevers daily and transition antibiotics per ID to vancomycin. Patient reports to feeling well and would like to go home. Patient does have left knee swelling noted and attempted to transfer to [facility] with Dr. Curry of orthopedics who is seeing him outpatient. Declined as there are personal medical issues with Dr. Curry and will not be available for at least 4 days. Other facilities declined as well. Will monitor overnight for any further fevers and discussed with infectious disease regarding discharge planning. Will consult orthopedics and appreciate input and recommendations in the event they are able to perform a knee aspiration and sent for cultures here. 05/13/2025 Patient is seen in follow-up today slightly lethargic per and continues to have intermittent low-grade temps. Patient's breathing appears somewhat labored and is to tachypneic although maintaining room air. Will add a chest x-ray along with breathing treatments and continue to monitor closely. Orthopedics was consulted and discussed with physician community assistant and reports continuing conservative management and outpatient follow-up with his primary orthopedic surgeon Dr. Curry out of [facility]. Attempted transfer there yesterday although denied as Dr. Curry is not available for a few days. Patient is continued on vancomycin and cefepime being added and will continue. Review of systems: Constitutional: No reports of fatigue, having intermittent fever, denies chills Cardiovascular: No reports of chest pain or palpitations Respiratory: reports of shortness of breath and cough GI: No reports of nausea, no reports of vomiting, no diarrhea : No reports of dysuria or retention Neurovascular: reports of generalized left knee pain, reports not sleeping much All medications have been reviewed Active Medications Acetaminophen (Acetaminophen Tab 325 Mg Tab) 650 mg PO Q6HR PRN PRN Reason: Fever and/ or Pain Last Admin: 05/12/25 05:57 Dose: 650 mg Albuterol/Ipratropium (Ipratropium-Albuterol 3 Ml Neb) 3 ml INHALATION RT-QID [facility] Last Admin: 05/13/25 21:19 Dose: 3 ml Apixaban (Apixaban 5 Mg Tab) 5 mg PO BID [facility]; Protocol Last Admin: 05/13/25 19:20 Dose: Not Given Furosemide (Furosemide 40 Mg Tab) 40 mg PO DAILY [facility] Last Admin: 05/13/25 08:20 Dose: 40 mg Heparin Sodium (Porcine) (Heparin Sodium,Porcine 5,000 Unit/Ml 1 Ml Vial) 5,000 unit SQ Q12HR [facility] Vancomycin HCl 2,250 mg/ (Sodium Chloride) 500 mls @ 167 mls/hr IVPB Q16H [facility] Last Admin: 05/13/25 23:23 Dose: 167 mls/hr Cefepime HCl 2 gm/ Sodium (Chloride) 100 mls @ 25 mls/hr IVPB Q8HR [facility]; Protocol Last Admin: 05/13/25 15:55 Dose: 25 mls/hr Acetaminophen 1,000 mg/ IV (Solution) 100 mls @ 400 mls/hr IVPB Q8H PRN PRN Reason: Pain Ibuprofen (Ibuprofen 600 Mg Tab) 600 mg PO QID PRN PRN Reason: Fever and/or Moderate Pain Last Admin: 05/13/25 19:56 Dose: 600 mg Levothyroxine Sodium (Levothyroxine 88 Mcg Tab) 88 mcg PO DAILY@0600 [facility] Last Admin: 05/13/25 06:44 Dose: 88 mcg Losartan Potassium (Losartan 50 Mg Tab) 100 mg PO DAILY [facility] Last Admin: 05/13/25 08:20 Dose: 100 mg Miscellaneous Information (Pneumonia Protocol Utilized 1 Each Misc) 1 each PO ONCE PRN PRN Reason: Per Protocol Pantoprazole Sodium (Pantoprazole 40 Mg/10 Ml Vial) 40 mg IVP DAILY [facility] Last Admin: 05/13/25 23:24 Dose: 40 mg Spironolactone (Spironolactone 25 Mg Tab) 12.5 mg PO DAILY [facility] Last Admin: 05/13/25 08:20 Dose: 12.5 mg PHYSICAL EXAMINATION: GENERAL: The patient is alert and oriented x2, lethargic today and mildly confused at times well developed, well nourished. Obese, elderly appearing, ill-appearing HEENT: Pupils are round and equally reacting to light. EOMI. no scleral icterus. No conjunctival pallor. Normocephalic, atraumatic. No pharyngeal erythema. No thyromegaly. CARDIOVASCULAR: S1 and S2 muffled PULMONARY: diminished breath sounds bilaterally with some expiratory wheezing and faint crackles noted at the bases. Mildly tachypneic ABDOMEN: soft. Nontender on exam. obese. non-distended, normoactive bowel sounds. No palpable organomegaly. MUSCULOSKELETAL: Mild left knee joint swelling, no deformity. EXTREMITIES: No cyanosis, clubbing, or pedal edema. NEUROLOGICAL: Gross neurological examination did not reveal any focal deficits. Diffuse weakness SKIN: No rashes. Assessment: Possible acute bilateral pneumonia, left more than right with concerns of aspiration on admission History of recent deep vein thrombosis of the left leg as well as patellar fracture with severe pain and gait dysfunction, on Eliquis which will be held f or now Recurrent intermittent fevers unknown source, possibly secondary to left knee effusion with hematoma present history of coronary artery disease History of pulmonary embolism Obesity with a BMI 39.3 GI prophylaxis DVT prophylaxis Full code Plan: Patient is being followed by pulmonary along with infectious disease and maintained on antibiotics and will continue. Orthopedics consulted as well as we attempted to transfer for tertiary treatment to previous surgeon Dr. Curry who follows outpatient status post recent patellar fracture. Patient continues to have intermittent low-grade temps Patient did have a chest CT with no acute findings noted. Patient did have intermittent low-grade temps with infectious disease following will continue cefepime and vancomycin Patient having some increased shortness of breath with wheezing and feeling generally unwell. Obtained a chest x-ray showing no acute process noted Encourage incentive spirometer use at least 10 times every hour while awake Elevate left lower extremity while at rest. Imaging performed of the left knee shows a small effusion and patient will be following up with his primary orthopedic in the outpatient setting Patient to follow-up with orthopedics outpatient regarding left knee with recent left patellar fracture. Dr. Patricio Bar/Lonnie David [facility] is her primary care provider and is having personal medical issues unable to see the patient for at least 4 days if being transferred. [facility] and unable to [facility] the [facility]. Recommend consulting on-call orthopedics at [facility] evaluation and possible knee aspiration. Patient has had extensive cardiac and cardiology workup recommend taking current medications and close outpatient follow-up. Patient having increasing shortness of breath with concerns of volume overload chest x-ray showing and no acute process, will add breathing treatments and monitor closely. Recommend giving a dose of Lasix Patient continues to have fevers and family is concerned about possible meningitis. Will repeat Cepheid testing also CRP, sed rate, procalcitonin and continue on antibiotics per ID recommendations. Orthopedics evaluated the patient recommending conservative management and no plans of any intervention here. Patient to follow-up at a tertiary treatment center Encourage increase activity as tolerated including sitting up in the chair more frequently Will follow-up on repeat labs and replace electrolytes per protocol We will obtain a CT of the left lower extremity Pain management consulted for possible LP as patient continues to have ongoing fevers. Patient with extensive cardiac history reporting some increasing shortness of breath possible volume overload versus CHF will consult appreciate cardiology recommendations Patient and family are extremely keen on going home. Due to multiple complex medical issues, overall prognosis guarded The impression and plan of care has been dictated by Vanessa Kolb, nurse practitioner as directed. Dr. Stone MD I have performed a history and examination and MDM of this patient, discussed the same with the dictator, and agree with the dictator's assessment and plan as written ,documented as a scribe. Based on total visit time, I have performed more than 50% of the visit. Any additional findings or plans will be noted. Objective - Vital Signs Vital signs: Vital Signs Temp 100.7 F H 05/13/25 20:50 Pulse 73 05/13/25 21:27 Resp 22 05/13/25 21:27 BP 120/74 05/13/25 20:50 Pulse Ox 97 05/13/25 16:57 FiO2 Intake & Output 05/13/25 05/13/25 05/14/25 06:59 18:59 06:59 Other: # Voids 2 4 - Labs CBC & Chem 7: 05/13/25 02:34 05/13/25 02:34 Labs: Abnormal Lab Results - Last 24 Hours (Table) 05/13/25 05/13/25 Range/Units 02:34 02:34 RBC 4.11 L (4.40-5.60) X 10*6/uL Hgb 12.3 L (13.0-17.0) g/dL Hct 37.8 L (39.6-50.0) % Sodium 132 L (137-145) mmol/L Chloride 97 L (98-107) mmol/L Glucose 117 H (74-99) mg/dL Calcium 8.1 L (8.4-10.2) mg/dL ALT 117 H (4-49) U/L Total Protein 5.5 L (6.3-8.2) g/dL Albumin 3.0 L (3.5-5.0) g/dL Microbiology - Last 24 Hours (Table) 05/10/25 10:03 Blood Culture - Preliminary Blood 05/07/25 19:01 Blood Culture - Final Blood
[2025-05-14] MEDS: FUROSEMIDE 10 MG/ML 2 ML VIAL IV ONE (00:29)
[2025-05-14 03:40] LABS: RSV Not Detected (Not Detectd)
--- NOTE | 2025-05-14 04:58 | CT ---
EXAM: CT Left Lower Extremity With Intravenous Contrast CLINICAL HISTORY: ITS.REASON CT Reason: left knee pain, effusion, recent patellar fx TECHNIQUE: Axial computed tomography images of the left lower extremity with intravenous contrast. CTDI is 6.2 mGy and DLP is 490.5 mGy-cm. This CT exam was performed using one or more of the following dose reduction techniques: automated exposure control, adjustment of the mA and/or kV according to patient size, and/or use of iterative reconstruction technique. COMPARISON: No relevant prior studies available. FINDINGS: Bones/joints: Left knee arthroplasty. No periprosthetic fracture. No dislocation. Soft tissues: Mild subcutaneous edema about the calf. No significant skin thickening. Correlate for cellulitis. No fluid collection or abscess. No subcutaneous air. Other findings: If there is concern for DVT, recommend ultrasound. IMPRESSION: 1. Mild subcutaneous edema about the calf. No significant skin thickening. Correlate for cellulitis. No fluid collection or abscess. No subcutaneous air. 2. Left knee arthroplasty. No periprosthetic fracture. 3. If there is concern for DVT, recommend ultrasound.
[2025-05-14 06:49] LABS: Bilirubin,Urine Negative (Negative); Blood,Urine Negative (Negative); Color,Urine Light Yellow; Glucose,Urine (UA) Negative (Negative); Ketones,Urine Negative (Negative); Leukocyte Esterase,Urine Negative (Negative); Nitrite,Urine Negative (Negative); PH, Urine 5.5 (5.0-8.0); Protein,Urine Negative (Negative); Specific Gravity,Urine 1.033 (1.001-1.035); Urobilinogen,Urine <2.0 mg/dL (<2.0)
[2025-05-14 07:55] LABS: Basophils # (A) 0.07 X 10*3/uL (0.00-0.10); Basophils % (A) 0.8 %; Eosinophils # (A) 0.37 X 10*3/uL (0.04-0.35); Eosinophils % (A) 4.4 %; HCT 38.7 % (39.6-50.0); HGB 12.2 g/dL (13.0-17.0); Immature Grans, Automated 0.50 %; Lymphocytes # (A) 1.21 X 10*3/uL (0.90-5.00); Lymphocytes % (A) 14.3 %; MCH 28.8 pg (27.0-32.0); MCHC 31.5 g/dL (32.0-37.0); MCV 91.3 FL (80.0-97.0); Monocytes # (A) 0.98 X 10*3/uL (0.20-1.00); Monocytes % (A) 11.6 %; NRBC Per 100 WBC 0 X 10*3/uL (0.00-0.01); Neutrophils # (A) 5.80 X 10*3/uL (1.80-7.70); Neutrophils % (A) 68.4 %; Platelet Count 221 X 10*3/uL (140-440); RBC 4.24 X 10*6/uL (4.40-5.60); RDW 14.3 % (11.5-14.5); WBC 8.47 X 10*3/uL (4.50-10.00)
--- NOTE | 2025-05-14 08:03 | US ---
EXAMINATION TYPE: US venous doppler duplex LE LT DATE OF EXAM: 05/14/2025 7:52 AM COMPARISON: Left lower extremity venous ultrasound 05/07/2025, CT left lower extremity 05/13/2025 CLINICAL INDICATION: Male, 74 years old with history of hematoma? dvt, re-eval; swollen left leg, US 7 days ago negative for DVT TECHNIQUE: The lower extremity deep venous system is examined utilizing real time linear array sonog rashard with graded compression, doppler sonography and color-flow sonography. Grayscale, color doppler , spectral doppler imaging performed of the deep veins of the lower extremities FINDINGS: SIDE PERFORMED: Left VESSELS IMAGED: Common Femoral Vein Deep Femoral Vein Greater Saphenous Vein * Femoral Vein Popliteal Vein Small Saphenous Vein * Proximal Calf Veins (* superficial vessels) Left Leg: Negative for DVT; There is normal flow, compressibility, vascular waveforms. patient sl eeping in recliner, unable to arouse, could only reach proximal femoral vein, Unable to replicate pos sible hematoma within left calf as seen on last US IMPRESSION: No visualized deep venous thrombosis of the left lower extremity however only able to reach the proxi mal femoral vein due to patient condition. Cannot exclude more distal deep venous thrombosis. Unable to replicate possible hematoma within the left calf as seen on prior ultrasound. May have resolved. [facility], , 05/14/2025 8:01 AM
[2025-05-14] MEDS: HEPARIN SODIUM,PORCINE 5,000 UNIT/ML 1 ML VIAL SQ SCH (08:22)
[2025-05-14 10:55] LABS: ALT 129 U/L (10-49); AST 56 U/L (14-35); Albumin 3.4 g/dL (3.8-4.9); Albumin/Globulin Ratio 1.26 Ratio (1.60-3.17); Alkaline Phosphatase 63 U/L (41-126); Anion Gap 10.20 mmol/L (4.00-12.00); BUN/Creat Ratio 16.40 Ratio (12.00-20.00); Blood Urea Nitrogen 16.4 mg/dL (9.0-27.0); Calcium 8.4 mg/dL (8.7-10.3); Carbon Dioxide 26.8 mmol/L (21.6-31.8); Chloride 101 mmol/L (96-109); Globulin 2.7 g/dL (1.6-3.3); Glucose 127 mg/dL (70-110); Magnesium 2.1 mg/dL (1.5-2.4); Potassium 4.2 mmol/L (3.5-5.5); Sodium 138 mmol/L (135-145); Total Protein 6.1 g/dL (6.2-8.2)
--- NOTE | 2025-05-14 12:14 | P.CRDCN ---
History of Present Illness History of present illness: HISTORY OF PRESENT ILLNESS: This is a 74-year-old male with a past medical history significant for hypertension, aortic stenosis with previous SAVR and subsequent TAVR, atrial tachycardia and obesity. Patient follows in the office with Dr. Pérez. We have been asked to see the patient in consultation for shortness of breath and fever. Patient examined at the bedside. Cardiology was consulted due to SOB. Patient states he was feeling short of breath this morning. He states that he normally has some mild degree of shortness of breath however it was worse than normal. He states that the breathing treatments and oxygen have helped him. He denies any cough. He does have a history of congestive heart failure and is on oral Lasix on an outpatient basis. He denies any chest pain or pressure. DIAGNOSTICS: - EKG reveals sinus mechanism with no signs of acute ischemia. - Chest xray cardiomegaly and suspected small bilateral pleural effusions. - Lower extremity Doppler: Negative for DVT of the left lower extremity. However only able to reach proximal femoral vein due to patient condition. - Lower extremity CT: Mild subcutaneous edema in the calf. No significant skin thickening. Correlate for cellulitis. No fluid collection or abscess. No subcutaneous air. - Laboratory data: WBC 8.47. Hemoglobin 12.2. Platelet count 221. Sodium 138. Potassium 4.2. BUN 16. Creatinine 1.0. Magnesium 2.1. proBNP 683. Procalcitonin 0.10. - Current home cardiac medications include losartan 100 mg daily, Aldactone 12.5 mg daily, Eliquis 5 mg twice a day, Lasix 40 mg daily. - Echocardiogram obtained this admission revealed ejection fraction 55 to 60%, normally functioning prosthetic aortic valve without stenosis, no perivalvular aortic regurgitation, no central aortic regurgitation, trace TR, no pericardial or pleural effusion - Cardiac catheterization history: April 2019 revealing normal coronary arteries REVIEW OF SYSTEMS: At the time of my exam: CONSTITUTIONAL: Denies fever or chills. HEENT: Denies blurred vision, vision changes, or eye pain. Denies hemoptysis CARDIOVASCULAR: Denies chest pain. Denies orthopnea. Denies PND. Denies palpitations RESPIRATORY: Denies shortness of breath. GASTROINTESTINAL: Denies abdominal pain. Denies nausea or vomiting. HEMATOLOGIC: Denies bleeding disorders. GENITOURINARY: Denies any blood in urine. SKIN: Denies pruitis. Denies rash. PHYSICAL EXAM: VITAL SIGNS: Reviewed. GENERAL: Well-developed in no acute distress. HEENT: Head is normocephalic. Pupils are equal, round. Sclerae anicteric. Mucous membranes of the mouth are moist. Neck supple. No JVD or thyromegaly LUNGS: Respirations even and unlabored. Lungs essentially clear to auscultation bilaterally. HEART: Regular rate and rhythm. S1 and S2 heard. + systolic murmur ABDOMEN: Soft. Nondistended. Nontender. EXTREMITIES: Normal range of motion. No clubbing or cyanosis. Peripheral pulses intact. Trace bilateral lower extremity edema NEUROLOGIC: Awake and alert. Oriented x 3. ASSESSMENT: Fever, improved Left knee pain History of left knee patellar fracture Shortness of breath Possible mild acute on chronic heart failure with preserved EF, likely due to IV fluids History of SAVR with subsequent TAVR performed at [facility] Normal coronary arteries, per cath 2019 History of hypertension History of atrial tachycardia Obesity: BMI 39.3 PLAN: 2D echo obtained and reviewed. Patient's prosthetic valve looks good and is functioning appropriately. Blood cultures are negative. No concern for vegetation. Patient appears slightly volume overloaded likely secondary to administration of IV fluids along with IV antibiotics. Will give an additional dose of IV Lasix 40 mg x 1 Repeat BMP in a.m. Continue additional cardiac medications Further recommendations pending patient course Nurse practitioner note has been reviewed by physician. Signing provider agrees with the documented findings, assessment, and plan of care documented by POLICY VALUE CALCULATOR as a scribe. Past Medical History Past Medical History: Coronary Artery Disease (CAD), Deep Vein Thrombosis (DVT), GERD/Reflux, Hypertension, Pulmonary Embolus (PE), Thyroid Disorder Additional Past Medical History / Comment(s): shortness of breath with exertion History of Any Multi-Drug Resistant Organisms: None Reported Past Surgical History: Back Surgery, Cholecystectomy, Hernia Repair, Joint Replacement, Orthopedic Surgery Additional Past Surgical History / Comment(s): aortic valve replacement, aortic root repair, nurys knee replacement,rt shoulder rotator cuff , RAMANA-04/15/19, replacement of the replaced aortic valve. left patella fracture Past Anesthesia/Blood Transfusion Reactions: No Reported Reaction Additional Past Anesthesia/Blood Transfusion Reaction / Comment(s): headache after having orthopedic surgery Past Psychological History: No Psychological Hx Reported Smoking Status: Never smoker Past Alcohol Use History: None Reported Past Drug Use History: None Reported - Past Family History Mother Family Medical History: No Reported History Father Family Medical History: Cancer Additional Family Medical History / Comment(s): prostate cancer Medications and Allergies Home Medications Medication Instructions Recorded Confirmed Type Furosemide [Lasix] 40 mg PO DAILY 10/01/14 05/08/25 History Levothyroxine Sodium [Synthroid] 88 mcg PO DAILY 10/01/14 05/08/25 History Losartan Potassium [Cozaar] 100 mg PO DAILY 10/01/14 05/08/25 History Spironolactone [Aldactone] 12.5 mg PO DAILY 04/12/19 05/08/25 History Apixaban [Eliquis] 5 mg PO BID 05/08/25 05/08/25 History Ibuprofen [Motrin] 800 mg PO TID PRN 05/08/25 05/08/25 History Acetaminophen Tab [Tylenol] 650 mg PO Q6HR PRN tab 05/09/25 Rx Azithromycin [Zithromax] 500 mg PO HS 3 Days #3 tab 05/09/25 Rx Ipratropium/Albuter 20-100Mcg 1 puff INHALATION BID 30 Days #4 gm 05/09/25 Rx [Combivent Respimat 20-100Mcg Inhaler] cefuroxime axetiL [Ceftin] 500 mg PO BID 5 Days #10 tab 05/09/25 Rx Allergies Allergy/AdvReac Type Severity Reaction Status Date / Time No Known Allergies Allergy Verified 05/08/25 07: Physical Exam Vitals: Vital Signs Temp Pulse Pulse Resp BP Pulse Ox 05/14/25 09:17 68 05/14/25 09:04 64 96 05/14/25 07:25 98.3 F 62 15 169/65 95 05/14/25 01:38 24 05/14/25 01:01 98.3 F 60 20 117/56 95 05/13/25 23:40 28 H 05/13/25 21:27 73 22 05/13/25 21:25 40 H 05/13/25 21:19 71 24 05/13/25 21:12 40 H 05/13/25 20:50 100.7 F H 120/74 05/13/25 20:03 24 05/13/25 19:32 100.6 F H 73 18 168/89 97 05/13/25 17:06 72 05/13/25 16:57 97 05/13/25 16:53 64 05/13/25 14:20 26 H 99 05/13/25 13:01 98.8 F 68 40 H 152/74 99 Intake and Output 05/13/25 05/14/25 05/14/25 22:59 06:59 14:59 Other: Voiding Method Toilet # Voids 4 1 Results 05/14/25 06:01 05/14/25 06:01 Cardiac Enzymes 05/14/25 Range/Units 06:01 AST 56 H (14-35) U/L CBC 05/14/25 Range/Units 06:01 WBC 8.47 (4.50-10.00) X 10*3/uL RBC 4.24 L (4.40-5.60) X 10*6/uL Hgb 12.2 L (13.0-17.0) g/dL Hct 38.7 L (39.6-50.0) % Plt Count 221 (140-440) X 10*3/uL Comprehensive Metabolic Panel 05/14/25 Range/Units 06:01 Sodium 138 (135-145) mmol/L Potassium 4.2 (3.5-5.5) mmol/L Chloride 101 (96-109) mmol/L Carbon Dioxide 26.8 (21.6-31.8) mmol/L BUN 16.4 (9.0-27.0) mg/dL Creatinine 1.0 (0.6-1.5) mg/dL Glucose 127 H (70-110) mg/dL Calcium 8.4 L (8.7-10.3) mg/dL AST 56 H (14-35) U/L ALT 129 H (10-49) U/L Alkaline Phosphatase 63 (41-126) U/L Total Protein 6.1 L (6.2-8.2) g/dL Albumin 3.4 L (3.8-4.9) g/dL Current Medications Generic Name Dose Route Start Last Admin Trade Name Freq PRN Reason Stop Dose Admin Acetaminophen 650 mg 05/08/25 17:13 05/12/25 05:57 Acetaminophen Tab 325 Mg Tab PO 650 mg Q6HR PRN Administration Fever and/ or Pain Albuterol/Ipratropium 3 ml 05/13/25 16:00 05/14/25 09:03 Ipratropium-Albuterol 3 Ml Neb INHALATION 3 ml RT-QID ASIF Administration Apixaban 5 mg 05/08/25 09:00 05/14/25 07:48 Apixaban 5 Mg Tab PO Not Given BID ASIF Protocol Furosemide 40 mg 05/08/25 09:00 05/14/25 08:22 Furosemide 40 Mg Tab PO 40 mg DAILY ASIF Administration Heparin Sodium (Porcine) 5,000 unit 05/14/25 09:00 05/14/25 08:22 Heparin Sodium,Porcine 5,000 Unit/Ml 1 Ml Vial SQ 5,000 unit Q12HR ASIF Administration Vancomycin HCl 2,250 mg/ 500 mls @ 167 mls/hr 05/11/25 06:00 05/13/25 23:23 Sodium Chloride IVPB 167 mls/hr Q16H ASIF Administration Cefepime HCl 2 gm/ Sodium 100 mls @ 25 mls/hr 05/12/25 16:00 05/14/25 08:23 Chloride IVPB 25 mls/hr Q8HR ASIF Administration Protocol Acetaminophen 1,000 mg/ IV 100 mls @ 400 mls/hr 05/13/25 22:00 Solution IVPB Q8H PRN Pain Ibuprofen 600 mg 05/08/25 20:26 05/14/25 05:55 Ibuprofen 600 Mg Tab PO 600 mg QID PRN Administration Fever and/or Moderate Pain Levothyroxine Sodium 88 mcg 05/08/25 06:00 05/14/25 05:54 Levothyroxine 88 Mcg Tab PO 88 mcg DAILY@0600 ASIF Administration Losartan Potassium 100 mg 05/08/25 09:00 05/14/25 08:22 Losartan 50 Mg Tab PO 100 mg DAILY ASIF Administration Miscellaneous Information 1 each 05/07/25 21:09 Pneumonia Protocol Utilized 1 Each Misc PO ONCE PRN Per Protocol Pantoprazole Sodium 40 mg 05/13/25 22:00 05/14/25 08:22 Pantoprazole 40 Mg/10 Ml Vial IVP 40 mg DAILY ASIF Administration Spironolactone 12.5 mg 05/08/25 09:00 05/14/25 08:22 Spironolactone 25 Mg Tab PO 12.5 mg DAILY ASIF Administration Intake and Output 05/13/25 05/14/25 05/14/25 22:59 06:59 14:59 Other: Voiding Method Toilet # Voids 4 1 05/14/25 06:01 05/14/25 06:01
[2025-05-14] MEDS: FUROSEMIDE 10 MG/ML 4 ML VIAL IV STA (12:41)
--- NOTE | 2025-05-14 16:01 | P.PN ---
Subjective Progress Note Date: 05/14/25 Principal diagnosis: Reason for follow-up is fever patient is a 74-year-old male with a past medical history significant for Coronary Artery Disease (CAD), Deep Vein Thrombosis (DVT), GERD/Reflux, Hypertension, Pulmonary Embolus (PE), Thyroid Disorder, was brought into the hospital concern for patient having mental status changes patient also have a fever found this consultation. On today's evaluation that is 05/14/2025,the patient denies any fever or any chills, patient is breathing comfortably on room air, the patient is up in the chair denies chest pain shortness of breath and no significant cough, patient denies abdominal pain, no nausea vomiting or diarrhea. Denies having any headache he no that he is in the hospital. Patient white count is 8.47, creatinine is 1.0 repeat UA has been negative venous Doppler was negative for DVT Objective - Vital Signs Vital signs: Vital Signs Temp 98.3 F 05/14/25 07:25 Pulse 68 05/14/25 09:17 Resp 15 05/14/25 07:25 BP 169/65 05/14/25 07:25 Pulse Ox 96 05/14/25 09:04 FiO2 Intake & Output 05/13/25 05/14/25 05/14/25 18:59 06:59 18:59 Other: Voiding Method Toilet # Voids 4 1 - Exam GENERAL DESCRIPTION: An elderly male up in the chair in no distress RESPIRATORY SYSTEM: Unlabored breathing , decreased breath sounds at bases HEART: S1 S2 regular rate and rhythm , ABDOMEN: Soft , no tenderness EXTREMITIES: Left knee with minimal swelling no redness minimal warmth - Labs CBC & Chem 7: 05/14/25 06:01 05/14/25 06:01 Labs: Abnormal Lab Results - Last 24 Hours (Table) 05/13/25 05/13/25 05/13/25 Range/Units 22:08 22:10 22:10 RBC (4.40-5.60) X 10*6/uL Hgb (13.0-17.0) g/dL Hct (39.6-50.0) % MCHC (32.0-37.0) g/dL Eosinophils # (0.04-0.35) X 10*3/uL ESR 51 H (0-20) mm/Hr ABG pH 7.47 H (7.35-7.45) ABG pO2 69 L (83-108) mmHg ABG HCO3 30 H (21-25) mmol/L ABG Total CO2 32 H (19-24) mmol/L Hemoglobin 12.6 L (13.0-17.5) gm/dL Glucose (70-110) mg/dL Calcium (8.7-10.3) mg/dL AST (14-35) U/L ALT (10-49) U/L C-Reactive Protein 1.4 H (<1.0) mg/dL Total Protein (6.2-8.2) g/dL Albumin (3.8-4.9) g/dL Albumin/Globulin Ratio (1.60-3.17) Ratio 05/14/25 05/14/25 Range/Units 06:01 06:01 RBC 4.24 L (4.40-5.60) X 10*6/uL Hgb 12.2 L (13.0-17.0) g/dL Hct 38.7 L (39.6-50.0) % MCHC 31.5 L (32.0-37.0) g/dL Eosinophils # 0.37 H (0.04-0.35) X 10*3/uL ESR (0-20) mm/Hr ABG pH (7.35-7.45) ABG pO2 (83-108) mmHg ABG HCO3 (21-25) mmol/L ABG Total CO2 (19-24) mmol/L Hemoglobin (13.0-17.5) gm/dL Glucose 127 H (70-110) mg/dL Calcium 8.4 L (8.7-10.3) mg/dL AST 56 H (14-35) U/L ALT 129 H (10-49) U/L C-Reactive Protein (<1.0) mg/dL Total Protein 6.1 L (6.2-8.2) g/dL Albumin 3.4 L (3.8-4.9) g/dL Albumin/Globulin Ratio 1.26 L (1.60-3.17) Ratio Microbiology - Last 24 Hours (Table) 05/10/25 10:03 Blood Culture - Preliminary Blood Assessment and Plan (1) Fever Current Visit: Yes Status: Acute Code(s): R50.9 - FEVER, UNSPECIFIED SNOMED Code(s): 576397108 (2) Cellulitis of left knee Current Visit: Yes Status: Acute Code(s): L03.116 - CELLULITIS OF LEFT LOWER LIMB SNOMED Code(s): 11134204945466174 Plan: 1patient presented to hospital with weakness mental status changes in this patient also have a fever recent history of a injury to the left knee And now the patient to have pain to the left knee area tenderness swelling and warmth to the left knee area concerning for left knee cellulitis clinically doubt pne umonia as no significant respiratory symptoms chest x-ray has been negative procalcitonin was normal urine has been negative and no other obvious focus of infection clinically 2-x-ray of the knee shows minimal effusion no bony changes CRP mildly elevated, patient did have CT abdominal pelvis did not show any acute abnormality 3-patient did have resolution of his fever patient is sitting up in the chair with no headache or mental status changes clinical features are compatible with meningitis/encephalitis still worried about left knee septic arthritis and need to be ordered by his surgeon still waiting for anesthesia evaluation for the LP which should be completed for now continue the vancomycin and cefepime multiple family member at the bedside question answered Dictation was produced using [employer] dictation software. please excuse any grammatical, word or spelling errors. Time with Patient: Less than 30
--- NOTE | 2025-05-14 18:44 | CDI ---
Documentation Clarification Form Date: 05/14/2025 05:46:03 PM From: Sariah Hilliard RN, CCDS Phone: [phone] Admit Date: 05/10/2025 07:49:00 AM Patient Name: David Castillo Visit Number: [id number] Discharge Date: ATTENTION: The Clinical Documentation Specialists (CDI) and [facility] Coding Staff appreciate your assistance in clarifying documentation. Please respond to the clarification below the line at the bottom and electronically sign. The CDI & [facility] Coding staff will review the response and follow-up if needed. Please note: Queries are made part of the Legal Health Record. If you have any questions, please contact the author of this message via ITS. Doctor. Ruth Ritter The patient has "rule out sepsis" in the Internal Medicine progress notes starting on 05/10/25 Based on this information and the findings below, is there an additional diagnosis that is clinically appropriate for this patient? History/Risk Factors: Coronary Artery Disease (CAD), GERD/Reflux, Hypertension, Clinical Indicators: 74-year-old male with intermittent fever. 05/10 VS: (07:22) 127/69 70 20 102.2 95% RA 05/10 Labs: WBC 8.02, Neutrophils 5.09, NA 133, C - reactive protein 2.90, 05/08 CXR: Mild cardiomegaly and COPD. There may be subtle underlying interstitial changes which could reflect pulmonary vascular congestion versus atypical pneumonias. 05/09 Pulmonary progress note: Possible aspiration pneumonitis, chest x-ray showing cardiomegaly, old sternal wires with what appears to be a fractured segment displaced over right chest laterally, a basilar infiltrate best seen on lateral view. However CT scan negative. Procalcitonin negative at 0.08. 05/10 ID Left knee area tenderness swelling and warmth concerning for left cellulitis clinically doubt pneumonia as no significant respiratory symptoms. 05/14 CT lower extremity Lt w contrast: Mild subcutaneous edema about the calf. No significant skin thickening. Correlate for cellulitis. No fluid collection or abscess. No subcutaneous air. Treatment Vancomycin 2,500 MG IVPB ONCE 05/10 Vancomycin 2,250 IVPB Q 16 HRS 05/11-05/14 (PTD) Maxipime 2 GM IVPB Q 8 HRS05/12-05/14 Is there an additional diagnosis that is clinically appropriate for this patient? [ ] Sepsis, Second to cellulitis [ x ] Sepsis, ruled out [ ] Other, please specify [ ] Unable to determine SIRS Criteria: 2 or more of the following may indicate SIRS Temperature < 96.8F (36C) or > 101.0F (38.3C) Heart Rate > 90 bpm Respiratory Rate > 20 breaths/min or PaCO2 < 32 mmHg White Blood Cell Count > 12,000 or < 4,000 cells/mm3 or > 10% bands (Template Last Reviewed: October 2022) MTDD
--- NOTE | 2025-05-14 22:29 | P.PN ---
Subjective Progress Note Date: 05/14/25 This is a 74-year-old male who was recently admitted with change in mental status with concerns of possible pneumonia, possibly aspiration being followed by pulmonary along with infectious disease. Patient did have a few isolated low-grade temps and underwent CT chest showing no acute process. Patient was initially scheduled for discharge although developed a 102 temp this afternoon and CT abdomen pelvis is ordered and pending per infectious disease. Patient was given incentive spirometer and encouraged continued incentive spirometer use at least 10 times every hour while awake. Patient is empirically on antibiotics in the form of ceftriaxone and Zithromax being completed. Pulmonary following as well will be continued on current regimen. Patient is currently on room air and wants to go home. Patient reports is feeling well with no chest pain, shortness of breath, or palpitations. Patient is having some mild left knee pain and recently had left patellar fracture. Mild swelling noted with a small effusion on imaging and will be following with his orthopedics outpatient. 05/12/2025 Patient is seen in follow-up today initially was afebrile morning although early this afternoon patient spiked a fever of 102. Patient has been intermittently having fevers daily and transition antibiotics per ID to vancomycin. Patient reports to feeling well and would like to go home. Patient does have left knee swelling noted and attempted to transfer to [facility] with Dr. Curry of orthopedics who is seeing him outpatient. Declined as there are personal medical issues with Dr. Curry and will not be available for at least 4 days. Other facilities declined as well. Will monitor overnight for any further fevers and discussed with infectious disease regarding discharge planning. Will consult orthopedics and appreciate input and recommendations in the event they are able to perform a knee aspiration and sent for cultures here. 05/13/2025 Patient is seen in follow-up today slightly lethargic per and continues to have intermittent low-grade temps. Patient's breathing appears somewhat labored and is to tachypneic although maintaining room air. Will add a chest x-ray along with breathing treatments and continue to monitor closely. Orthopedics was consulted and discussed with physician freezer assistant and reports continuing conservative management and outpatient follow-up with his primary orthopedic surgeon Dr. Curry out of [facility]. Attempted transfer there yesterday although denied as Dr. Curry is not available for a few days. Patient is continued on vancomycin and cefepime being added and will continue. 05/14/2025 Patient is seen and evaluated in follow-up today currently sitting up in the chair much more awake and alert currently maintained on 2 L although denies any further shortness of breath. Breathing is less labored and within normal limits on respirations. Patient did have chest x-ray showing some mild pulmonary vascular congestion and was given a dose of Lasix. Cardiology consulted for further evaluation appreciate input and recommendations. Patient was evaluated by orthopedics with no plans of surgical intervention recommending keep follow- up appointment with his primary orthopedic Dr. Curry out of [facility] and reports he has an appointment on and would like to go. Patient is currently afebrile and was awaiting pain management versus anesthesia for possible LP. None was done yet and anesthesia recommending IR consult for possible LP. Monitor for fevers and continue with Tylenol. Repeat blood cultures are negative. Encourage incentive spirometer use at least 10 times every hour while awake. Will discuss with other consultations regarding discharge planning. Review of systems: Constitutional: No reports of fatigue, having intermittent fever although afebrile all day today 05/14/2025, denies chills Cardiovascular: No reports of chest pain or palpitations Respiratory: reports of shortness of breath although feels slightly improved today GI: No reports of nausea, no reports of vomiting, no diarrhea : No reports of dysuria or retention Neurovascular: reports of generalized left knee pain, reports not sleeping much All medications have been reviewed Active Medications Acetaminophen (Acetaminophen Tab 325 Mg Tab) 650 mg PO Q6HR PRN PRN Reason: Fever and/ or Pain Last Admin: 05/14/25 19:52 Dose: 650 mg Albuterol/Ipratropium (Ipratropium-Albuterol 3 Ml Neb) 3 ml INHALATION RT-QID [facility] Last Admin: 05/14/25 16:30 Dose: 3 ml Apixaban (Apixaban 5 Mg Tab) 5 mg PO BID [facility]; Protocol Last Admin: 05/14/25 18:29 Dose: Not Given Furosemide (Furosemide 40 Mg Tab) 40 mg PO DAILY [facility] Last Admin: 05/14/25 08:22 Dose: 40 mg Heparin Sodium (Porcine) (Heparin Sodium,Porcine 5,000 Unit/Ml 1 Ml Vial) 5,000 unit SQ Q12HR [facility] Last Admin: 05/14/25 19:56 Dose: 5,000 unit Vancomycin HCl 2,250 mg/ (Sodium Chloride) 500 mls @ 167 mls/hr IVPB Q16H [facility] Last Admin: 05/14/25 14:21 Dose: 167 mls/hr Cefepime HCl 2 gm/ Sodium (Chloride) 100 mls @ 25 mls/hr IVPB Q8HR [facility]; Protocol Last Admin: 05/14/25 16:18 Dose: 25 mls/hr Acetaminophen 1,000 mg/ IV (Solution) 100 mls @ 400 mls/hr IVPB Q8H PRN PRN Reason: Pain Ibuprofen (Ibuprofen 600 Mg Tab) 600 mg PO QID PRN PRN Reason: Fever and/or Moderate Pain Last Admin: 05/14/25 05:55 Dose: 600 mg Levothyroxine Sodium (Levothyroxine 88 Mcg Tab) 88 mcg PO DAILY@0600 [facility] Last Admin: 05/14/25 05:54 Dose: 88 mcg Losartan Potassium (Losartan 50 Mg Tab) 100 mg PO DAILY [facility] Last Admin: 05/14/25 08:22 Dose: 100 mg Miscellaneous Information (Pneumonia Protocol Utilized 1 Each Misc) 1 each PO ONCE PRN PRN Reason: Per Protocol Pantoprazole Sodium (Pantoprazole 40 Mg/10 Ml Vial) 40 mg IVP DAILY [facility] Last Admin: 05/14/25 08:22 Dose: 40 mg Spironolactone (Spironolactone 25 Mg Tab) 12.5 mg PO DAILY [facility] Last Admin: 05/14/25 08:22 Dose: 12.5 mg PHYSICAL EXAMINATION: GENERAL: The patient is alert and oriented x2, much more awake and alert today currently sitting up in the chair well developed, well nourished. Obese, elderly appearing, ill-appearing HEENT: Pupils are round and equally reacting to light. EOMI. no scleral icterus. No conjunctival pallor. Normocephalic, atraumatic. No pharyngeal erythema. No thyromegaly. CARDIOVASCULAR: S1 and S2 muffled PULMONARY: diminished breath sounds bilaterally with some expiratory wheezing and faint crackles noted at the bases. Improvement in irrigation ABDOMEN: soft. Nontender on exam. obese. non-distended, normoactive bowel sounds. No palpable organomegaly. MUSCULOSKELETAL: Mild left knee joint swelling, no deformity. No pain on palpation, full range of motion performed EXTREMITIES: No cyanosis, clubbing, or pedal edema. NEUROLOGICAL: Gross neurological examination did not reveal any focal deficits. Diffuse weakness SKIN: No rashes. Assessment: Possible acute bilateral pneumonia, left more than right with concerns of aspiration on admission, sepsis ruled out History of recent deep vein thrombosis of the left leg as well as patellar fracture with severe pain and gait dysfunction, on Eliquis which will be held for now Recurrent intermittent fevers unknown source, possibly secondary to left knee effusion with hematoma present history of coronary artery disease Pulmonary vascular congestion on imaging, likely secondary to IV fluids with mild volume overload, improved after IV Lasix History of pulmonary embolism Obesity with a BMI 39.3 GI prophylaxis DVT prophylaxis Full code Plan: Patient is being followed by pulmonary along with infectious disease and maintained on antibiotics and will continue. Orthopedics consulted as well as we attempted to transfer for tertiary treatment to previous surgeon Dr. Curry who follows outpatient status post recent patellar fracture. Patient continues to have intermittent low-grade temps Patient did have a chest CT with no acute findings noted. Patient did have intermittent low-grade temps with infectious disease following will continue cefepime and vancomycin. Currently afebrile today Patient having some increased shortness of breath with wheezing and feeling generally unwell. Obtained a chest x-ray showing no acute process noted Encourage incentive spirometer use at least 10 times every hour while awake Elevate left lower extremity while at rest. Imaging performed of the left knee shows a small effusion and patient will be following up with his primary orthopedic in the outpatient setting Patient to follow-up with orthopedics outpatient regarding left knee with recent left patellar fracture. Dr. Patricio [facility] is her primary care provider and is having personal medical issues unable to see the patient for at least 4 days if being transferred. Discussed with medicine team and [facility] and unable to accept the transfer. Recommend consulting on-call orthopedics at [facility] evaluation and possible knee aspiration. Patient has had extensive cardiac and cardiology workup recommend taking current medications and close outpatient follow-up. Patient was having increasing shortness of breath with concerns of volume overload chest x-ray showing and no acute process initially, continue breathing treatments and monitor closely. Patient having increasing shortness of breath and repeat chest x-ray later in the evening showed some volume overload and was given a dose of Lasix Patient is currently afebrile and family is concerned about possible meningitis. Suspicion is low although pain management/anesthesia consulted for possible LP. Will hold Eliquis and continue with subcutaneous heparin for now Orthopedics evaluated the patient recommending conservative management and no plans of any intervention here. Patient to follow-up at a tertiary treatment center Encourage increase activity as tolerated including sitting up in the chair more frequently Will follow-up on repeat labs and replace electrolytes per protocol We will obtain a CT of the left lower extremity Pain management consulted for possible LP and has not responded. Consult to anesthesia was placed which told nursing staff to consult interventional radiology for possible LP. Patient has a follow-up appointment with Dr. Curry out of [facility] and family would like to take the patient. Will await interventional radiology review with discussion of possible discharge planning. Patient and family are extremely keen on going home. Due to multiple complex medical issues, overall prognosis guarded The impression and plan of care has been dictated by Vanessa Kolb, nurse practitioner as directed. Dr. Stone MD I have performed a history and examination and MDM of this patient, discussed the same with the dictator, and agree with the dictator's assessment and plan as written ,documented as a scribe. Based on total visit time, I have performed more than 50% of the visit. Any additional findings or plans will be noted. Objective - Vital Signs Vital signs: Vital Signs Temp 98.6 F 05/14/25 13:58 Pulse 84 05/14/25 13:58 Resp 15 05/14/25 13:58 BP 150/76 05/14/25 13:58 Pulse Ox 96 05/14/25 13:58 FiO2 Intake & Output 05/13/25 05/14/25 05/14/25 18:59 06:59 18:59 Other: Voiding Method Toilet # Voids 4 1 - Labs CBC & Chem 7: 05/14/25 06:01 05/14/25 06:01 Labs: Abnormal Lab Results - Last 24 Hours (Table) 05/13/25 05/13/25 05/13/25 Range/Units 22:08 22:10 22:10 RBC (4.40-5.60) X 10*6/uL Hgb (13.0-17.0) g/dL Hct (39.6-50.0) % MCHC (32.0-37.0) g/dL Eosinophils # (0.04-0.35) X 10*3/uL ESR 51 H (0-20) mm/Hr ABG pH 7.47 H (7.35-7.45) ABG pO2 69 L (83-108) mmHg ABG HCO3 30 H (21-25) mmol/L ABG Total CO2 32 H (19-24) mmol/L Hemoglobin 12.6 L (13.0-17.5) gm/dL Glucose (70-110) mg/dL Calcium (8.7-10.3) mg/dL AST (14-35) U/L ALT (10-49) U/L C-Reactive Protein 1.4 H (<1.0) mg/dL Total Protein (6.2-8.2) g/dL Albumin (3.8-4.9) g/dL Albumin/Globulin Ratio (1.60-3.17) Ratio 05/14/25 05/14/25 Range/Units 06:01 06:01 RBC 4.24 L (4.40-5.60) X 10*6/uL Hgb 12.2 L (13.0-17.0) g/dL Hct 38.7 L (39.6-50.0) % MCHC 31.5 L (32.0-37.0) g/dL Eosinophils # 0.37 H (0.04-0.35) X 10*3/uL ESR (0-20) mm/Hr ABG pH (7.35-7.45) ABG pO2 (83-108) mmHg ABG HCO3 (21-25) mmol/L ABG Total CO2 (19-24) mmol/L Hemoglobin (13.0-17.5) gm/dL Glucose 127 H (70-110) mg/dL Calcium 8.4 L (8.7-10.3) mg/dL AST 56 H (14-35) U/L ALT 129 H (10-49) U/L C-Reactive Protein (<1.0) mg/dL Total Protein 6.1 L (6.2-8.2) g/dL Albumin 3.4 L (3.8-4.9) g/dL Albumin/Globulin Ratio 1.26 L (1.60-3.17) Ratio Microbiology - Last 24 Hours (Table) 07/26/25 10:03 Blood Culture - Preliminary Blood
[2025-05-15 06:01] LABS: African American GFR (CKD) >90 (>60 ml/min/1.73 sqM); Anion Gap 8 mmol/L; Blood Urea Nitrogen 19 mg/dL (9-20); Calcium 8.6 mg/dL (8.4-10.2); Carbon Dioxide 31 mmol/L (22-30); Chloride 99 mmol/L (98-107); Glucose 116 mg/dL (74-99); Non-African American GFR(CKD) 88 (>60 ml/min/1.73 sqM); Potassium 4.0 mmol/L (3.5-5.1); Sodium 138 mmol/L (137-145)
--- NOTE | 2025-05-15 07:14 | XR ---
EXAMINATION TYPE: XR chest 1V portable DATE OF EXAM: 05/15/2025 6:33 AM COMPARISON: Chest radiographs from 05/13/2025 TECHNIQUE: XR chest 1V portable Portable AP radiograph of the chest. CLINICAL INDICATION:Male, 74 years old with history of sob fevers; FINDINGS: Lungs/Pleura: No pneumothorax. Blunting of the left costophrenic angle. Bibasilar opacities. Intersti tial prominence. Heart/mediastinum: Cardiomediastinal silhouette is enlarged and stable. Endovascular aortic valve re placement. Musculoskeletal: No acute osseous pathology. Midline sternotomy wires are noted and stable. There is again fracture of the uppermost sternal wire with fragment to the right. IMPRESSION: Similar small left pleural effusion with interstitial prominence and bibasilar patchy opacities likel y representing atelectasis. Correlate clinically for CHF exacerbation. Superimposed infectious proces s is not excluded. [facility], , 05/15/2025 7:11 AM
--- NOTE | 2025-05-15 07:38 | P.PN ---
Progress Note - Text Progress Note Date: 05/15/25 Request for lumbar puncture was ordered to rule out meningitis, patient currently on Eliquis and the last dose was received on 05/13/2025 at 8:20 AM, the lumbar puncture cannot be done until Eliquis held for 3 days, The puncture can be done tomorrow morning
[2025-05-15] MEDS: FUROSEMIDE 10 MG/ML 4 ML VIAL IV STA (10:30)
--- NOTE | 2025-05-15 12:45 | P.PN ---
Subjective HISTORY OF PRESENT ILLNESS: This is a 74-year-old male with a past medical history significant for hypertension, aortic stenosis with previous SAVR and subsequent TAVR, atrial tachycardia and obesity. Patient follows in the office with Dr. Pérez. We have been asked to see the patient in consultation for shortness of breath and fever. Patient examined at the bedside. Cardiology was consulted due to SOB. Patient states he was feeling short of breath this morning. He states that he normally has some mild degree of shortness of breath however it was worse than normal. He states that the breathing treatments and oxygen have helped him. He denies any cough. He does have a history of congestive heart failure and is on oral Lasix on an outpatient basis. He denies any chest pain or pressure. DIAGNOSTICS: - EKG reveals sinus mechanism with no signs of acute ischemia. - Chest xray cardiomegaly and suspected small bilateral pleural effusions. - Lower extremity Doppler: Negative for DVT of the left lower extremity. However only able to reach proximal femoral vein due to patient condition. - Lower extremity CT: Mild subcutaneous edema in the calf. No significant skin thickening. Correlate for cellulitis. No fluid collection or abscess. No subcutaneous air. - Laboratory data: WBC 8.47. Hemoglobin 12.2. Platelet count 221. Sodium 138. Potassium 4.2. BUN 16. Creatinine 1.0. Magnesium 2.1. proBNP 683. Procalcitonin 0.10. - Current home cardiac medications include losartan 100 mg daily, Aldactone 12.5 mg daily, Eliquis 5 mg twice a day, Lasix 40 mg daily. - Echocardiogram obtained this admission revealed ejection fraction 55 to 60%, normally functioning prosthetic aortic valve without stenosis, no perivalvular a ortic regurgitation, no central aortic regurgitation, trace TR, no pericardial or pleural effusion - Cardiac catheterization history: April 2019 revealing normal coronary arteries 05/15/2025 Patient examined this morning. He is sitting up in the chair. He denies chest pain or pressure. He reports his shortness of breath is improving. Vital signs are stable. Pressure slightly elevated today with a systolic in the 150s. PHYSICAL EXAM: VITAL SIGNS: Reviewed. GENERAL: Well-developed in no acute distress. HEENT: Head is normocephalic. Pupils are equal, round. Sclerae anicteric. Mucous membranes of the mouth are moist. Neck supple. No JVD or thyromegaly LUNGS: Respirations even and unlabored. Lungs essentially clear to auscultation bilaterally. HEART: Regular rate and rhythm. S1 and S2 heard. + systolic murmur ABDOMEN: Soft. Nondistended. Nontender. EXTREMITIES: Normal range of motion. No clubbing or cyanosis. Peripheral pulses intact. Trace bilateral lower extremity edema NEUROLOGIC: Awake and alert. Oriented x 3. ASSESSMENT: Fever, improved Left knee pain History of left knee patellar fracture Shortness of breath Possible mild acute on chronic heart failure with preserved EF, likely due to IV fluids History of SAVR with subsequent TAVR performed at [facility] Normal coronary arteries, per cath 2019 History of hypertension History of atrial tachycardia Obesity: BMI 39.3 PLAN: 2D echo obtained and reviewed. Patient's prosthetic valve looks good and is functioning appropriately. Blood cultures are negative. No concern for vegetation. Continue current cardiac medications including Eliquis, oral Lasix, losartan, and Aldactone Increase Aldactone 25 mg daily Further recommendations pending patient course Nurse practitioner note has been reviewed by physician. Signing provider agrees with the documented findings, assessment, and plan of care documented by MARBLE [employer] WORKER as a scribe. Objective - Vital Signs Vital signs: Vital Signs Temp 98.2 F 05/15/25 07:23 Pulse 82 05/15/25 12:25 Resp 16 05/15/25 07:23 BP 159/80 05/15/25 07:23 Pulse Ox 98 05/15/25 08:47 FiO2 Intake & Output 05/14/25 05/15/25 05/15/25 18:59 06:59 18:59 Other: Voiding Method Toilet Toilet Toilet # Voids 4 1 # Bowel Movements 1 - Labs CBC & Chem 7: 05/14/25 06:01 05/15/25 05:04 Labs: Abnormal Lab Results - Last 24 Hours (Table) 05/15/25 Range/Units 05:04 Carbon Dioxide 31 H (22-30) mmol/L Glucose 116 H (74-99) mg/dL Microbiology - Last 24 Hours (Table) 05/13/25 22:10 Blood Culture - Preliminary Blood
[2025-05-15 14:11] VITALS: BP 122/64; RESP 17; TEMP 97.6
--- NOTE | 2025-05-15 15:48 | P.DS ---
Providers Date of admission: 05/10/25 07:49 Expected date of discharge: 05/15/25 Attending physician: Ruth Ritter Consults: 05/07/25 21:40 Consult Physician Routine Consulting Provider: Daljit Hills Consult Reason/Comments: pneumonia Do you want consulting provider notified?: Yes 05/07/25 21:42 Consult Physician Routine Consulting Provider: Agueda Cisneros Consult Reason/Comments: fever Do you want consulting provider notified?: Yes 05/12/25 19:27 Consult Physician Urgent Consulting Provider: Washington Miguel Consult Reason/Comments: left knee effusion, rec patellar fx, fevers, needs tap and cultures Do you want consulting provider notified?: Yes 05/13/25 21:51 Consult Physician Urgent Consulting Provider: Lee Pérez Consult Reason/Comments: shortness of breath, febrile unknown source, known to patient Do you want consulting provider notified?: Yes, Notify in am 05/14/25 16:21 Consult to Anesthesia Stat Consulting Provider: Anesthesia,Services Consult Reason/Comments: lumbar puncture to r/o meningitis Primary care physician: José Luis Forrester MD Hospital Course: Final diagnosis Possible acute bilateral pneumonia, left more than right with concerns of aspiration on admission, sepsis ruled out History of recent deep vein thrombosis of the left leg as well as patellar fracture with severe pain and gait dysfunction, on Eliquis which will be held for now Recurrent intermittent fevers unknown source, possibly secondary to left knee effusion with hematoma present history of coronary artery disease Pulmonary vascular congestion on imaging, likely secondary to IV fluids with mild volume overload, improved after IV Lasix History of pulmonary embolism Obesity with a BMI 39.3 GI prophylaxis DVT prophylaxis Full code Discharge disposition Patient is being transferred in a stable condition with guarded prognosis to [facility] on [address]. Patient has been accepted by Dr. Gregory internal medicine and orthopedics Dr. Curry. Total time taken is greater than 35 minutes. Hospital course This is a 74-year-old male who was recently admitted with change in mental status with concerns of possible pneumonia, possibly aspiration being followed by pulmonary along with infectious disease. Patient did have a few isolated low-grade temps and underwent CT chest showing no acute process. Patient was initially scheduled for discharge although developed a [address] temp this afternoon and CT abdomen pelvis is ordered and pending per infectious disease. Patient was given incentive spirometer and encouraged continued incentive spirometer use at least 10 times every hour while awake. Patient is empirically on antibiotics in the form of ceftriaxone and Zithromax being completed. Pulmonary following as well will be continued on current regimen. Patient is currently on room air and wants to go home. Patient reports is feeling well with no chest pain, shortness of breath, or palpitations. Patient is having some mild left knee pain and recently had left patellar fracture. Mild swelling noted with a small effusion on imaging and will be following with his orthopedics outpatient. 05/12/2025 Patient is seen in follow-up today initially was afebrile morning although early this afternoon patient spiked a fever of 102. Patient has been intermittently having fevers daily and transition antibiotics per ID to vancomycin. Patient reports to feeling well and would like to go home. Patient does have left knee swelling noted and attempted to transfer to [facility] with Dr. Curry of orthopedics who is seeing him outpatient. Declined as there are personal medical issues with Dr. Curry and will not be available for at least 4 days. Other facilities declined as well. Will monitor overnight for any furt her fevers and discussed with infectious disease regarding discharge planning. Will consult orthopedics and appreciate input and recommendations in the event they are able to perform a knee aspiration and sent for cultures here. 05/13/2025 Patient is seen in follow-up today slightly lethargic per and continues to have intermittent low-grade temps. Patient's breathing appears somewhat labored and is to tachypneic although maintaining room air. Will add a chest x-ray along with breathing treatments and continue to monitor closely. Orthopedics was consulted and discussed with physician first assistant manager and reports continuing conservative management and outpatient follow-up with his primary orthopedic surgeon Dr. Curry out of [facility]. Attempted transfer there yesterday although denied as Dr. Curry is not available for a few days. Patient is continued on vancomycin and cefepime being added and will continue. 05/14/2025 Patient is seen and evaluated in follow-up today currently sitting up in the chair much more awake and alert currently maintained on 2 L although denies any further shortness of breath. Breathing is less labored and within normal limits on respirations. Patient did have chest x-ray showing some mild pulmonary vascular congestion and was given a dose of Lasix. Cardiology consulted for further evaluation appreciate input and recommendations. Patient was evaluated by orthopedics with no plans of surgical intervention recommending keep follow- up appointment with his primary orthopedic Dr. Curry out of [facility] and reports he has an appointment on and would like to go. Patient is currently afebrile and was awaiting pain management versus anesthesia for possible LP. None was done yet and anesthesia recommending IR consult for possible LP. Monitor for fevers and continue with Tylenol. Repeat blood cultures are negative. Encourage incentive spirometer use at least 10 times every hour while awake. Will discuss with other consultations regarding discharge planning. 05/15/2025 Patient is seen in follow-up today continues to spike low-grade temps and attempted to consult pain management and/or interventional radiology or anesthesia for possible LP as family was concerned about meningitis although suspicion is extremely low, they were persistent and patient had been taking Eliquis which is currently on hold and is maintained on subcutaneous heparin. Patient orthopedic surgeon Dr. Curry out of [facility] later discussed with family and would like him transferred for further tertiary treatment and possible aspiration of this left knee. Patient has been accepted by Dr. Gregory with Dr. Curry as a surgical consult. Patient is also continued on antibiotics in the form of cefepime and Vanco per ID recommendations. Cultures thus far have been negative. Chest x-ray today shows some mild volume overload and atelectasis. Strongly encouraged continued incentive spirometer use at least 10 times every hour. Again patient has been accepted by [facility] and will be discharged and transported once a bed is available. Transfer team will contact the unit to make arrangements for nurse to nurse report. Patient and family are agreeable with the transfer PHYSICAL EXAMINATION: GENERAL: The patient is alert and oriented x2, much more awake and alert today currently sitting up in the chair well developed, well nourished. Obese, elderly appearing, ill-appearing HEENT: Pupils are round and equally reacting to light. EOMI. no scleral icterus. No conjunctival pallor. Normocephalic, atraumatic. No pharyngeal erythema. No thyromegaly. CARDIOVASCULAR: S1 and S2 muffled PULMONARY: diminished breath sounds bilaterally with some expiratory wheezing and faint crackles noted at the bases. Improvement in irrigation ABDOMEN: soft. Nontender on exam. obese. non-distended, normoactive bowel sounds. No palpable organomegaly. MUSCULOSKELETAL: Mild left knee joint swelling, no deformity. No pain on palpation, full range of motion performed EXTREMITIES: No cyanosis, clubbing, or pedal edema. NEUROLOGICAL: Gross neurological examination did not reveal any focal deficits. Diffuse weakness SKIN: No rashes. The impression and plan of care has been dictated by Vanessa Kolb, nurse practitioner as directed. Dr. Stone MD I have performed a history and examination and MDM of this patient, discussed the same with the dictator, and agree with the dictator's assessment and plan as written ,documented as a scribe. Based on total visit time, I have performed more than 50% of the visit. Any additional findings or plans will be noted. Patient Condition at Discharge: Fair Plan - Discharge Summary Discharge Rx Participant: Yes New Discharge Prescriptions: New cefuroxime axetiL [Ceftin] 500 mg PO BID 5 Days #10 tab Azithromycin [Zithromax] 500 mg PO HS 3 Days #3 tab Ipratropium/Albuter 20-100Mcg [Combivent Respimat 20-100Mcg Inhaler] 1 puff INHALATION BID 30 Days #4 gm Acetaminophen Tab [Tylenol] 650 mg PO Q6HR PRN tab PRN Reason: Fever And/ Or Pain Continue Furosemide [Lasix] 40 mg PO DAILY Losartan Potassium [Cozaar] 100 mg PO DAILY Levothyroxine Sodium [Synthroid] 88 mcg PO DAILY Spironolactone [Aldactone] 12.5 mg PO DAILY Ibuprofen [Motrin] 800 mg PO TID PRN PRN Reason: Pain Apixaban [Eliquis] 5 mg PO BID Discharge Medication List Furosemide [Lasix] 40 mg PO DAILY 10/01/14 [History] Levothyroxine Sodium [Synthroid] 88 mcg PO DAILY 10/01/14 [History] Losartan Potassium [Cozaar] 100 mg PO DAILY 10/01/14 [History] Spironolactone [Aldactone] 12.5 mg PO DAILY 04/12/19 [History] Apixaban [Eliquis] 5 mg PO BID 05/08/25 [History] Ibuprofen [Motrin] 800 mg PO TID PRN 05/08/25 [History] Acetaminophen Tab [Tylenol] 650 mg PO Q6HR PRN tab 05/09/25 [Rx] Azithromycin [Zithromax] 500 mg PO HS 3 Days #3 tab 05/09/25 [Rx] Ipratropium/Albuter 20-100Mcg [Combivent Respimat 20-100Mcg Inhaler] 1 puff INHALATION BID 30 Days #4 gm 05/09/25 [Rx] cefuroxime axetiL [Ceftin] 500 mg PO BID 5 Days #10 tab 05/09/25 [Rx] Follow up Appointment(s)/Referral(s): Daljit Hills MD [STAFF PHYSICIAN] - 1 Week José Luis Forrester MD [Primary Care Provider] - 1-2 days Activity/Diet/Wound Care/Special Instructions: Activity limited until follow-up Follow-up with primary care provider Follow-up with pulmonary outpatient Continue medications as prescribed Follow-up with your orthopedic this week Continue to elevate your leg Continue with inhalers Continue incentive spirometer
[2025-05-15 16:42] VITALS: PULSE 76
[2025-05-16] MEDS ORDERED: SPIRONOLACTONE 25 MG TAB PO SCH (09:00)
--- NOTE | 2025-05-16 15:11 | P.PN ---
Subjective Progress Note Date: 05/15/25 Principal diagnosis: Reason for follow-up is fever patient is a 74-year-old male with a past medical history significant for Coronary Artery Disease (CAD), Deep Vein Thrombosis (DVT), GERD/Reflux, Hypertension, Pulmonary Embolus (PE), Thyroid Disorder, was brought into the hospital concern for patient having mental status changes patient also have a fever found this consultation. On today's evaluation that is 05/15/2025,the patient displayed a fever of 102 F last evening patient is afebrile this morning patient is currently on 2 L oxygen and sleepy today no vomiting diarrhea or any other changes reported by the at the bedside. Patient white count is 8.47 as of yesterday his creatinine 0.80 blood culture remains to be negative has been evaluated by anesthesia and wanted to Eliquis hold for another day before we can do the LP Objective - Vital Signs Vital signs: Vital Signs Temp 98.2 F 05/15/25 07:23 Pulse 72 05/15/25 08:55 Resp 16 05/15/25 07:23 BP 159/80 05/15/25 07:23 Pulse Ox 98 05/15/25 08:47 FiO2 Intake & Output 05/14/25 05/15/25 05/15/25 18:59 06:59 18:59 Other: Voiding Method Toilet Toilet # Voids 4 1 # Bowel Movements 1 - Exam GENERAL DESCRIPTION: An elderly male up in the chair in no distress RESPIRATORY SYSTEM: Unlabored breathing , decreased breath sounds at bases HEART: S1 S2 regular rate and rhythm , ABDOMEN: Soft , no tenderness EXTREMITIES: Left knee with minimal swelling no redness minimal warmth - Labs CBC & Chem 7: 05/14/25 06:01 05/15/25 05:04 Labs: Abnormal Lab Results - Last 24 Hours (Table) 05/14/25 05/15/25 Range/Units 06:01 05:04 Carbon Dioxide 31 H (22-30) mmol/L Glucose 127 H 116 H (70-110) mg/dL Calcium 8.4 L (8.7-10.3) mg/dL AST 56 H (14-35) U/L ALT 129 H (10-49) U/L Total Protein 6.1 L (6.2-8.2) g/dL Albumin 3.4 L (3.8-4.9) g/dL Albumin/Globulin Ratio 1.26 L (1.60-3.17) Ratio Microbiology - Last 24 Hours (Table) 05/13/25 22:10 Blood Culture - Preliminary Blood Assessment and Plan (1) Fever Status: Acute Code(s): R50.9 - FEVER, UNSPECIFIED SNOMED Code(s): 549574686 (2) Cellulitis of left knee Status: Acute Code(s): L03.116 - CELLULITIS OF LEFT LOWER LIMB SNOMED Code(s): 50929748361746535 Plan: 1patient presented to hospital with weakness mental status changes in this patient also have a fever recent history of a injury to the left knee And now the patient to have pain to the left knee area tenderness swelling and warmth to the left knee area concerning for left knee cellulitis clinically doubt pneumonia as no significant respiratory symptoms chest x-ray has been negative procalcitonin was normal urine has been negative and no other obvious focus of infection clinically 2-x-ray of the knee shows minimal effusion no bony changes CRP mildly elevated, patient did have CT abdominal pelvis did not show any acute abnormality 3-patient did have persistent fever and waxing waning mental status changes he definitely need to have an LP to rule out meningitis/encephalitis though clinically no other features suggestive of the same at the same time he did have aspiration of the left knee to rule out septic arthritis I have detailed discussion with the admitting team as well as Dr. Curry on the phone who has accepted the patient to be transferred to [facility] for further workup for now continue with cefepime and vancomycin at the bedside multiple question answered Dictation was produced using [employer] dictation software. please excuse any grammatical, word or spelling errors. Time with Patient: Less than 30
== END 2025-05-15 18:00 | disposition other institution (70) | DRG 177 ==
LOC: EC 18:04 → 4SSUR 21:11 → OBSVTOIN 05-10 07:49
PROVIDERS: ADMIT Hospitalist; ATTEND Hospitalist
DX: J69.0 Pneumonitis due to inhalation of food and vomit (principal); I50.33 Acute on chronic diastolic (congestive) heart failure; M00.862 Arthritis due to other bacteria, left knee; G91.9 Hydrocephalus, unspecified; I11.0 Hypertensive heart disease with heart failure; J44.9 Chronic obstructive pulmonary disease, unspecified; Z68.39 Body mass index [BMI] 39.0-39.9, adult; E03.9 Hypothyroidism, unspecified; Z95.2 Presence of prosthetic heart valve; Z95.828 Presence of other vascular implants and grafts; K76.0 Fatty (change of) liver, not elsewhere classified; L03.116 Cellulitis of left lower limb; Z11.52 Encounter for screening for COVID-19; R50.9 Fever, unspecified; E66.9 Obesity, unspecified; I25.10 Atherosclerotic heart disease of native coronary artery without angina pectoris; Z79.01 Long term (current) use of anticoagulants; Z79.890 Hormone replacement therapy; Z79.899 Other long term (current) drug therapy; Z86.711 Personal history of pulmonary embolism; Z86.718 Personal history of other venous thrombosis and embolism; Z90.49 Acquired absence of other specified parts of digestive tract; Z87.19 Personal history of other diseases of the digestive system; Z96.653 Presence of artificial knee joint, bilateral
CPT/HCPCS: 36415; 36600; 70450; 71045; 71046; 71250; 74177; 80048; 80053; 80202; 80306; 81003; 82805; 83605; 83735; 83880; 84145; 85025; 85610; 85652; 85730; 86140; 87040; 87449; 87636; 93005; 93306; 94640; 94760; 96365; 96375; 99285